=== PATIENT | female | born 1960 | race Caucasian/White ===

== ENCOUNTER 2021-03-14 18:51 | Inpatient (IN) | payer MEDICARE ==
[~2021-03-14] VITALS: Ht 162.6 cm; Wt 136.4 kg
[2021-03-14] MEDS ORDERED: ACETAMINOPHEN 325 MG TABLET. PO ONE (19:15)
--- NOTE | 2021-03-14 19:26 | PHYS DOC ---
General Adult EDM: Chief Complaint: SHORTNESS OF BREATH HPI: HPI: Patient is a 60 year old female who presents with 2 weeks of shortness of air. She does normally wear oxygen at 4 L. She is 94% on 4 L. She states that her shortness of breath has worsened. She was just released from [facility] yesterday and went home. Patient's told me this upon his arrival. She was there for 3 weeks after she had a fall at home. Previously EMS said that she was at [facility]. Patient is having chest pain also that is tight. She has history of CHF, high cholesterol, and hypertension and diabetes. She is a poor historian. She is also running a fever of 100.4. She states she was not running a fever previously. She states she does take Lasix. Review of Systems: Review of Systems: Constitutional: + fever or chills. [] Eyes: Denies change in visual acuity. [] HENT: Denies nasal congestion or sore throat. [] Respiratory: + cough or +shortness of breath. [] Cardiovascular: + chest pain or +edema. [] GI: Denies abdominal pain, nausea, vomiting, bloody stools or diarrhea. [] : Denies dysuria. [] Musculoskeletal: Denies back pain or joint pain. [] Integument: Denies rash. [] Neurologic: Denies headache, focal weakness or sensory changes. [] Endocrine: Denies polyuria or polydipsia. [] Lymphatic: Denies swollen glands. [] Psychiatric: Denies depression or anxiety. [] Heart Score: C/O Chest Pain: Yes HEART Score for Chest Pain: HEART Score for Chest Pain Response (Comments) Value History Slighlty/Non-Suspicious 0 ECG Nonspecific Repolarizatio 1 Age >45 - < 65 1 Risk Factors >3 Risk Factors or Hx CAD 2 Troponin < Normal Limit 0 Total 4 Risk Factors: Risk Factors: DM, Current or recent (<one month) smoker, HTN, HLP, family history of CAD, obesity. Risk Scores: Score 0 - 3: 2.5% MACE over next 6 weeks - Discharge Home Score 4 - 6: 20.3% MACE over next 6 weeks - Admit for Clinical Observation Score 7 - 10: 72.7% MACE over next 6 weeks - Early Invasive Strategies Current Medications: Current Medications Medications (Trade) Dose Ordered Sig/Fleisa Start Time Stop Time Status Last Admin Dose Admin Acetaminophen (Tylenol) 650 mg 1X ONCE 03/14/21 19:15 03/14/21 19:16 DC Allergies: Allergies: Allergies Coded Allergies Type Severity Reaction Last Updated Verified No Known Drug Allergies 03/14/21 No Physical Exam: PE: Constitutional: Well developed, well nourished, no acute distress, non-toxic appearance. [] HENT: Normocephalic, atraumatic, bilateral external ears normal, oropharynx moist, no oral exudates, nose normal. [] Eyes: PERRLA, EOMI, conjunctiva normal, no discharge. [] Neck: Normal range of motion, no tenderness, supple, no stridor. [] Cardiovascular:Heart rate regular rhythm, no murmur [] Lungs & Thorax: Left breath sounds and right upper wheezing with lower diminished to auscultation [] Abdomen: Bowel sounds normal, soft, no tenderness, no masses, no pulsatile masses. [] Skin: Warm, dry, no erythema, no rash. [] Back: No tenderness, no CVA tenderness. [] Extremities: No tenderness, no cyanosis, no clubbing, ROM intact, bilateral lower and upper 2-3+ edema. [] Neurologic: Alert and oriented X 3, normal motor function, normal sensory function, no focal deficits noted. [] Psychologic: Affect normal, judgement normal, mood normal. [] EKG: EK and read by Dr. Melendez sinus rhythm and no STEMI. [] Radiology/Procedures: Radiology/Procedures: [] Impression: [facility] [address] [place], [place] [id number] IMAGING REPORT Signed PATIENT: GARFIELD BRIDGES LACCOUNT: [id number] : 1960 LOCATION: ER AGE: 60 SEX: F EXAM STATUS: REG ER ORD. PHYSICIAN: LUIS ARMANDO FORBES APRN REASON: soa. unable to take deep breath PROCEDURE: PORTABLE CHEST 1V EXAM: AP View of the chest DATE: 03/14/2021 7:11 PM INDICATION: Reason: soa. unable to take deep breath / Spl. Instructions: / History: COMPARISON: No Prior FINDINGS: Mild cardiomegaly. Bilateral perihilar and lung base airspace opacities. Trace pleural effusions. No pneumothorax. IMPRESSION: 1. Cardiomegaly with bilateral parenchymal opacities and pleural effusions, likely pulmonary edema. Multifocal consolidative process would also have this appearance. Electronically signed by: Geovani Ruelas MD (03/14/2021 9:08 PM) [facility] DICTATED and SIGNED BY: GEOVANI RUELAS MD DATE: 03/14/[id number] 0 [facility] [address] [place] [address] IMAGING REPORT Signed PATIENT: GARFIELD BRIDGES LACCOUNT: [id number] : 1960 LOCATION: ER AGE: 60 SEX: F EXAM STATUS: REG ER ORD. PHYSICIAN: LUIS ARMANDO FORBES APRN REASON: SOA, ELEVATED LIVER ENZYMES, FEVER PROCEDURE: CT ANGIO CHEST ABD PELVIS Exam: CT of chest, abdomen and pelvis with contrast INDICATION: Short of air, elevated liver enzymes, fever TECHNIQUE: Sequential axial images through the chest, abdomen and pelvis obtained following the administration 100 mL of Isovue-370 IV contrast. Sagittal and coronal reformatted images were reconstructed from the axial data and reviewed. Exposure: One or more of the following in the visualized dose reduction techniques were utilized for this examination: 1. Automated exposure control 2. Adjustment of the MA and/or KV according to patient size 3. Use of iterative of reconstructive technique Comparisons: None FINDINGS: Visualized portions of the thyroid are unremarkable. There are several prominent but not enlarged pretracheal lymph nodes. Heart is mildly enlarged. No pericardial effusion. Thoracic aorta has a normal course and caliber. Pulmonary artery is not enlarged. Airways are patent. Strandy opacities the lungs bilaterally. Mild intralobular septal thickening is noted, with lung apices. No consolidation or pneumothorax. There is a small right and trace left pleural effusion Liver, pancreas and adrenals are unremarkable. Spleen is enlarged measuring up to 15.3 cm in long axis. Gallbladder is distended with mild associated wall thickening. No perinephric inflammation or hydronephrosis. No renal or ureteral calculi are identified. Bladder is decompressed not well evaluated. Uterus is absent. No abnormal adnexal mass. Large and small bowel are unremarkable. Appendix is normal. No free intra- abdominal air or fluid. No obstruction. Abdominal aorta has a normal course and caliber. Abdominal vasculature is patent. No enlarged intra-abdominal lymph nodes are identified. IMPRESSION: 1. Small right and trace left pleural effusions with intralobular septal thickening in the lungs, may relate to pulmonary edema with effusions. 2. Diffuse soft tissue anasarca. 3. No acute process identified within the abdomen or pelvis. 4. Splenomegaly. Electronically signed by: Juan Munoz MD (03/14/2021 9:18 PM) [facility] DICTATED and SIGNED BY: JUAN MUNOZ MD DATE: 03/14/21 0 Course & Med Decision Making: Course & Med Decision Making Pertinent Labs and Imaging studies reviewed. (See chart for details) COVID-19 CRITERIA: The patient was evaluated during the global COVID-19 pandemic, and that diagnosis was suspected/considered upon their initial presentation. Their evaluation, treatment and testing was consistent with current guidelines for patients who present with complaints or symptoms that may be related to COVID-19. See HPI. Alert and oriented x4. Cannot currently ambulate due to shortness of breath. She is brought in by EMS. Speaks in short 1 word sentences. She has in respiratory distress. Left lung is totally diminished in right lung has some wheezing in the upper lobe. Skin pink warm and dry. Patient has 2+ edema from head to toe. Patient is placed on BiPAP. She is given 40 mg of Lasix IV. states that the patient does have some redness to her bilateral lower legs of which she does. He states that her legs do not have any that redness prior to going to the rehabilitation. [] Dragon Disclaimer: Dragon Disclaimer: This electronic medical record was generated, in whole or in part, using a voice recognition dictation system. COVID-19 Patient Risks: Age 65 or older: No Sign of co-morbidity: Yes Exp to person + for COVID: No Exp to PUI: No Travel from affected area: No Lower respiratory symptoms: Yes Fever: Yes Other: No PPE Use: Full PPE with N95 mask or PAPR: Yes Departure Departure Impression: Primary Impression: CHF exacerbation Qualified Codes: I50.9 - Heart failure, unspecified Additional Impressions: Hyperkalemia Person under investigation for COVID-19 Disposition: 09 ADMITTED INPATIENT Admitting Physician: MAYELIN Condition: STABLE LUIS ARMANDO FORBES SLIDE FASTENER REPAIRER Mar 14, 2021 19:26
[2021-03-14 19:33] LABS: BASO # 0.1 x10^3/uL (0.0-0.2); BASO % 1 % (0-3); EOS % 0 % (0-3); HEMATOCRIT 27.2 % (36.0-47.0); HEMOGLOBIN 8.6 g/dL (12.0-15.5); LYMPH # 1.1 x10^3/uL (1.0-4.8); LYMPH % 11 % (24-48); MEAN CORPUSCULAR HEMOGLOBIN 25 pg (25-35); MEAN CORPUSCULAR HGB CONC 32 g/dL (31-37); MEAN CORPUSCULAR VOLUME 79 fL (79-100); MONO # 0.7 x10^3/uL (0.0-1.1); MONO % 7 % (0-9); NEUT # 7.9 x10^3/uL (1.8-7.7); NEUT % 80 % (31-73); PLATELET COUNT 330 x10^3/uL (140-400); RED BLOOD COUNT 3.46 x10^6/uL (3.50-5.40); RED CELL DISTRIBUTION WIDTH 17.2 % (11.5-14.5); WHITE BLOOD COUNT 9.8 x10^3/uL (4.0-11.0)
[2021-03-14 19:34] LABS: PROTHROMBIN TIME PATIENT 16.6 SEC (11.7-14.0)
[2021-03-14 19:37] LABS: D-DIMER 2.55 ug/mlFEU (0.00-0.50)
[2021-03-14 19:38] LABS: CALCIUM 8.8 mg/dL (8.5-10.1); CREATININE 0.9 mg/dL (0.6-1.0); GFR 63.7; POTASSIUM 5.6 mmol/L (3.5-5.1)
[2021-03-14 19:44] LABS: ALBUMIN/GLOBULIN RATIO 0.9 (1.0-1.7); TOTAL BILIRUBIN 2.4 mg/dL (0.2-1.0); TOTAL PROTEIN 6.3 g/dL (6.4-8.2)
[2021-03-14] MEDS ORDERED: IOHEXOL 350 MG/ML 100 ML VIAL. IV ONE (20:15)
[2021-03-14 20:40] LABS: BASE EXCESS COOX 0 mmol/L (-3-3); HCO3 COOX 24 mmol/L (21-28); METHEMOGLOBIN 0.5 % (0.0-1.9); OXYHEMOGLOBIN 91.5 %; PCO2 COOX 38 mmHg (35-46); PO2 COOX 66 mmHg (65-108); SAT O2 COOX 92 % (92-99)
--- NOTE | 2021-03-14 21:10 | RAD ---
EXAM: AP View of the chest DATE: 03/14/2021 7:11 PM INDICATION: Reason: soa. unable to take deep breath / Spl. Instructions: / History: COMPARISON: No Prior FINDINGS: Mild cardiomegaly. Bilateral perihilar and lung base airspace opacities. Trace pleural effusions. No pneumothorax. IMPRESSION: 1. Cardiomegaly with bilateral parenchymal opacities and pleural effusions, likely pulmonary edema. Multifocal consolidative process would also have this appearance. Electronically signed by: Geovani Woo MD (03/14/2021 9:08 PM) [facility]
--- NOTE | 2021-03-14 21:20 | RAD ---
Exam: CT of chest, abdomen and pelvis with contrast INDICATION: Short of air, elevated liver enzymes, fever TECHNIQUE: Sequential axial images through the chest, abdomen and pelvis obtained following the admin istration 100 mL of Isovue-370 IV contrast. Sagittal and coronal reformatted images were reconstructe d from the axial data and reviewed. Exposure: One or more of the following in the visualized dose reduction techniques were utilized for this examination: 1. Automated exposure control 2. Adjustment of the MA and/or KV according to patient size 3. Use of iterative of reconstructive technique Comparisons: None FINDINGS: Visualized portions of the thyroid are unremarkable. There are several prominent but not enlarged pre tracheal lymph nodes. Heart is mildly enlarged. No pericardial effusion. Thoracic aorta has a normal course and caliber. Pu lmonary artery is not enlarged. Airways are patent. Strandy opacities the lungs bilaterally. Mild intralobular septal thickening is n oted, with lung apices. No consolidation or pneumothorax. There is a small right and trace left pleur al effusion Liver, pancreas and adrenals are unremarkable. Spleen is enlarged measuring up to 15.3 cm in long axi s. Gallbladder is distended with mild associated wall thickening. No perinephric inflammation or hydronephrosis. No renal or ureteral calculi are identified. Bladder is decompressed not well evaluated. Uterus is absent. No abnormal adnexal mass. Large and small bowel are unremarkable. Appendix is normal. No free intra-abdominal air or fluid. No obstruction. Abdominal aorta has a normal course and caliber. Abdominal vasculature is patent. No enlarged intra-abdominal lymph nodes are identified. IMPRESSION: 1. Small right and trace left pleural effusions with intralobular septal thickening in the lungs, ma y relate to pulmonary edema with effusions. 2. Diffuse soft tissue anasarca. 3. No acute process identified within the abdomen or pelvis. 4. Splenomegaly. Electronically signed by: Juan Salcedo MD (03/14/2021 9:18 PM) [facility]
[2021-03-14] MEDS ORDERED: FUROSEMIDE 40 MG/4 ML VIAL. IVP ONE (21:30)
[2021-03-14] MEDS ORDERED: PIPERACILLIN/TAZOBACTAM 3.375 GM in IV NORMAL SALINE 50ML 50 ML IV ONE (22:00)
[2021-03-14] MEDS ORDERED: ONDANSETRON PF 4 MG/2 ML VIAL. IVP PRN (22:30)
[2021-03-14] MEDS ORDERED: CONTRAST GIVEN. MC PRN (22:30)
[2021-03-14] MEDS ORDERED: LACTULOSE 20 GM/30 ML SOLUTION. PO PRN (22:30)
[2021-03-14] MEDS ORDERED: DEXTROSE 50% 25 GM / 50ML DISP.SYRIN. IV PRN (22:30)
[2021-03-14] MEDS ORDERED: ZOLPIDEM 5 MG TABLET. PO PRN (22:30)
[2021-03-14] MEDS ORDERED: ACETAMINOPHEN 325 MG TABLET. PO PRN (22:30)
[2021-03-14 22:45] VITALS: BP 153/81
[2021-03-14] MEDS ORDERED: INSULIN GLARGINE SYRINGE. SQ SCH (23:00)
[2021-03-14] MEDS: ENOXAPARIN 40 MG/0.4 ML SYRINGE. SQ SCH (23:44)
[2021-03-15] VITALS (7 sets, daily range): BP systolic 129–169; BP diastolic 58–72
[2021-03-15 00:41] LABS: BILIRUBIN,URINE NEGATIVE (NEG); CLARITY,URINE CLEAR; COLOR,URINE YELLOW; NITRITE,URINE NEGATIVE (NEG); PROTEIN,URINE NEGATIVE (NEG-TRACE); UROBILINOGEN,URINE 0.2 mg/dL (0.2 mg/dL)
[2021-03-15 00:57] LABS: BACTERIA,URINE FEW /HPF (0-FEW); WBC,URINE 20-40 /HPF (0-4)
[2021-03-15 01:04] LABS: YEAST,URINE PRESENT /HPF
--- NOTE | 2021-03-15 01:58 | NUR ---
The patient, GARFIELD BRIDGES, 60 y/o, F admitted by GERARD FRYE MD, was given written information regarding hospital policies, unit procedures and contact persons. Valuables were checked and has a shirt and socks. Patient unable to respond to what medications and much of health history due to being on bipap and unable to recall.
--- NOTE | 2021-03-15 02:07 | EKG ---
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
[2021-03-15 04:53] LABS: ALBUMIN 2.7 g/dL (3.4-5.0); DIRECT BILIRUBIN 0.6 mg/dL (0.0-0.2); TOTAL BILIRUBIN 2.4 mg/dL (0.2-1.0); TOTAL PROTEIN 6.4 g/dL (6.4-8.2)
--- NOTE | 2021-03-15 07:44 | PDOC1 ---
History and Physical Date of Admission Date of Admission DATE: 03/15/21 TIME: 07:39 Identification/Chief Complaint Chief Complaint Shortness of breath Source Source: Caregiver, Chart review, Patient History of Present Illness History of Present Illness Ms Diaz is a 60 yo F w/ PMHx CAD s/p SAM x1, diastolic CHF, polyarthralgias, TONI no longer on CPAP, chronic hypoxic respiratory failure, morbid obesity, HLD, HTN, DM2 who presents to ED c/o 2 weeks of shortness of breath. The shortness of breath has been progressive while she was at acute rehab in [place] after a left knee revision after a femoral fracture with a fall onto prosthetic left knee 5 weeks ago, repaired by Dr. Mendez at [facility]. She notes significant CANNON and orthopnea and noted she sleeps in her recliner for the past year. She notes she was released from [facility] on 03/13/2021 though she continues to say July 13, despite frequent correction and redirection, her does note it was 03/13/2021 Labs with ABG on 3 L nasal cannula 7.4 , CBC WBC 9.8 with left shift, Hb 8.6, platelets 330, NA 138, K5.6, BUN 28, CR 0.9, glucose 300, INR 1.4, D-dimer 2.55 lactic acid 1.6, troponin 0 3 8, albumin 2.7, bilirubin 2.4, AST 57, ALT 40 , alkaline phosphatase 308. Chest radiograph with cardiomegaly and multifocal consolidation likely pulmonary edema. Given elevated D-dimer and severity of her symptoms she underwent CT chest abdomen pelvis with pulmonary edema again noted and overall soft tissue anasarca splenomegaly nondistended gallbladder. Given her the severity of her respiratory distress she was placed on BiPAP had Calderon catheter placed and was admitted to [facility] for further treatment of acute CHF. Past Medical History Cardiovascular: CAD, CHF, HTN, Hyperlipidemia Pulmonary: COPD Endocrine: Diabetes Past Surgical History Past Surgical History: Total knee replacement Family History Family History: High Cholestrol, Hypertension Social History Smoke: No ALCOHOL: none Drugs: None Current Problem List Problem List Problems Medical Problems: (1) CHF exacerbation Status: Acute (2) Hyperkalemia Status: Acute (3) Person under investigation for COVID-19 Status: Acute Current Medications Current Medications Current Medications Acetaminophen (Tylenol) 650 mg 1X ONCE PO Last administered on 03/14/21at 19:35; Start 03/14/21 at 19:15; Stop 03/14/21 at 19:16; Status DC Iohexol (Omnipaque 350 Mg/ml) 100 ml 1X ONCE IV Last administered on 03/14/21at 20:15; Start 03/14/21 at 20:15; Stop 03/14/21 at 20:16; Status DC Furosemide (Lasix) 40 mg 1X ONCE IVP Last administered on 03/14/21at 21:44; Start 03/14/21 at 21:30; Stop 03/14/21 at 21:31; Status DC Piperacillin Sod/ Tazobactam Sod 3.375 gm/Sodium Chloride 50 ml @ 100 mls/hr 1X ONCE IV Last administered on 03/14/21at 21:44; Start 03/14/21 at 22:00; Stop at 22:29; Status DC Info (CONTRAST GIVEN -- Rx MONITORING) 1 each PRN DAILY PRN MC SEE COMMENTS; Start 03/14/21 at 22:30; Stop 03/16/21 at 22:29 Insulin Glargine (Lantus Syringe) 10 unit QHS SQ Last administered on 03/14/21at 23:54; Start 03/14/21 at 23:00 Insulin Human Lispro (HumaLOG) 0-9 UNITS TIDWMEALS SQ ; Start 03/15/21 at 08:00 Dextrose (Dextrose 50%-Water Syringe) 12.5 gm PRN Q15MIN PRN IV SEE COMMENTS; Start 03/14/21 at 22:30 Acetaminophen (Tylenol) 650 mg PRN Q6HRS PRN PO MILD PAIN / TEMP > 100.3'F Last administered on 03/15/21at 04:00; Start 03/14/21 at 22:30 Ondansetron HCl (Zofran) 4 mg PRN Q4HRS PRN IVP NAUSEA/VOMITING 1ST CHOICE; Start 03/14/21 at 22:30 Zolpidem Tartrate (Ambien) 5 mg PRN QHS PRN PO INSOMNIA; Start 03/14/21 at 22:30 Enoxaparin Sodium (Lovenox 40mg Syringe) 40 mg Q12HR SQ Last administered on 03/14/21at 23:44; Start 03/14/21 at 23:00 Lactulose (Lactulose) 20 gm PRN DAILY PRN PO CONSTIPATION 1ST CHOICE; Start 03/14/21 at 22:30 Tramadol HCl (Ultram) 50 mg PRN Q6HRS PRN PO MODERATE PAIN 4-6; Start 03/14/21 at 22:30 Furosemide (Lasix) 40 mg BID92 IVP ; Start 03/15/21 at 09:00; Stop 03/15/21 at 14:01 Allergies Allergies: Coded Allergies: No Known Drug Allergies (Unverified , 03/14/21) ROS General: YES: Fatigue, Malaise; No: Chills, Night Sweats, Appetite, Other PSYCHOLOGICAL ROS: YES: Anxiety, Disorientation, Memory difficulties; No: Behavioral Disorder, Concentration difficultie, Decreased libido, Depression, Hallucinations, Hostility, Irritablity, Mood Swings, Obsessive thoughts, Physical abuse, Sexual abuse, Sleep disturbances, Suicidal ideation, Other Eyes: No Blurry vision, No Decreased vision, No Double vision, No Dry eyes, No Excessive tearing, No Eye Pain, No Itchy Eyes, No Loss of vision, No Photophobia, No Scotomata, No Uses contacts, No Uses glasses, No Other HEENT: No: Heacaches, Visual Changes, Hearing change, Nasal congestion, Nasal discharge, Oral lesions, Sinus pain, Sore Throat, Epistaxis, Sneezing, Snoring, Tinnitus, Vertigo, Vocal changes, Other ALLERGY AND IMMUNOLOGY: No: Hives, Insect Bite Sensitivity, Itchy/Watery Eyes, Nasal Congestion, Post Nasal Drip, Seasonal Allergies, Other Hematological and Lymphatic: No: Bleeding Problems, Blood Clots, Blood Transfusions, Brusing, Night Sweats, Pallor, Swollen Lymph Nodes, Other ENDOCRINE: No: Breast Changes, Galactorrhea, Hair Pattern Changes, Hot Flashes, Malaise/lethargy, Mood Swings, Palpitations, Polydipsia/polyuria, Skin Changes, Temperature Intolerance, Unexpected Weight Changes, Other Breast: No New/Changing Breast Lumps, No Nipple changes, No Nipple discharge, No Other Respiratory: YES: Cough, Shortness of breath, SOB with excertion, Tachypnea, Wheezing; No: Hemoptysis, Orthopnea, Pleuritic Pain, Sputum Changes, Stridor, Other Cardiovascular: yes Chest Pain, yes Orthopnea, yes Paroxysmal Noc. Dyspnea, yes Edema; No Palpitations, No Lt Headedness, No Other Genitourinary: No Dysuria, No Frequency, No Incontinence, No Hematuria, No Retention, No Discharge, No Urgency, No Pain, No Flank Pain, No Other, No , No , No , No , No , No , No Musculoskeletal: Yes Gait Disturbance; No Joint Pain, No Joint Stiffness, No Joint Swelling, No Muscle Pain, No Muscular Weakness, No Pain In:, No Swelling In:, No Other Neurological: Yes Gait Disturbance; No Behavorial Changes, No Bowel/Bladder ControlChng, No Confusion, No Dizziness, No Headaches, No Impaired Coord/balance, No Memory Loss, No Numbness/Tingling, No Seizures, No Speech Problems, No Tremors, No Visual Changes, No Weakness, No Other Skin: No Dry Skin, No Eczema, No Hair Changes, No Lumps, No Mole Changes, No Mottling, No Nail Changes, No Pruritus, No Rash, No Skin Lesion Changes, No Other, No Acne Physical Exam General: Alert, Cooperative, moderate distress HEENT: Atraumatic, PERRLA, EOMI, Mucous membr. moist/pink Lungs: Other (Bilateral crackles) Heart: S1S2, RRR, no thrills, no rubs Abdomen: Normal bowel sounds, Soft, No tenderness, No hepatosplenomegaly, No masses Rectal Exam: not examined Extremities: No clubbing, No cyanosis, Normal pulses, Other (Bilateral venous stasis dermatitis, 2+ edema) Skin: No rashes, No breakdown, No significant lesion, Other (Left knee sutures intact) Neuro: Normal speech, Strength at 5/5 X4 ext, Normal tone, Sensation intact, Cranial nerves 3-12 NL, Reflexes 2+ Psych/Mental Status: Other (Confused) Vitals Vitals Vital Signs Date Time Temp Pulse Resp B/P (MAP) Pulse Ox O2 Delivery O2 Flow Rate FiO2 03/15/21 03:45 100.3 81 24 169/72 (104) 99 BiPAP/CPAP 100.3 03/14/21 23:45 12.0 Labs Labs Laboratory Tests Test 03/14/21 18:15 03/14/21 19:15 03/14/21 20:27 03/14/21 23:48 Acetone Level Neg (NEG) White Blood Count 9.8 x10^3/uL (4.0-11.0) Red Blood Count 3.46 x10^6/uL (3.50-5.40) Hemoglobin 8.6 g/dL (12.0-15.5) Hematocrit 27.2 % (36.0-47.0) Mean Corpuscular Volume 79 fL (79-100) Mean Corpuscular Hemoglobin 25 pg (25-35) Mean Corpuscular Hemoglobin Concent 32 g/dL (31-37) Red Cell Distribution Width 17.2 % (11.5-14.5) Platelet Count 330 x10^3/uL (140-400) Neutrophils (%) (Auto) 80 % (31-73) Lymphocytes (%) (Auto) 11 % (24-48) Monocytes (%) (Auto) 7 % (0-9) Eosinophils (%) (Auto) 0 % (0-3) Basophils (%) (Auto) 1 % (0-3) Neutrophils # (Auto) 7.9 x10^3/uL (1.8-7.7) Lymphocytes # (Auto) 1.1 x10^3/uL (1.0-4.8) Monocytes # (Auto) 0.7 x10^3/uL (0.0-1.1) Eosinophils # (Auto) 0.0 x10^3/uL (0.0-0.7) Basophils # (Auto) 0.1 x10^3/uL (0.0-0.2) Prothrombin Time 16.6 SEC (11.7-14.0) Prothromb Time International Ratio 1.4 (0.8-1.1) D-Dimer (Susan) 2.55 ug/mlFEU (0.00-0.50) Sodium Level 138 mmol/L (136-145) Potassium Level 5.6 mmol/L (3.5-5.1) Chloride Level 103 mmol/L (98-107) Carbon Dioxide Level 26 mmol/L (21-32) Anion Gap 9 (6-14) Blood Urea Nitrogen 28 mg/dL (7-20) Creatinine 0.9 mg/dL (0.6-1.0) Estimated GFR (Cockcroft-Gault) 63.7 BUN/Creatinine Ratio 31 (6-20) Glucose Level 300 mg/dL (70-99) Lactic Acid Level 1.6 mmol/L (0.4-2.0) Calcium Level 8.8 mg/dL (8.5-10.1) Total Bilirubin 2.4 mg/dL (0.2-1.0) Aspartate Amino Transf (AST/SGOT) 57 U/L (15-37) Alanine Aminotransferase (ALT/SGPT) 40 U/L (14-59) Alkaline Phosphatase 308 U/L (46-116) Troponin I Quantitative 0.033 ng/mL (0.000-0.055) VS-Jie-E-Type Natriuretic Peptide 4873 pg/mL (0-124) Total Protein 6.3 g/dL (6.4-8.2) Albumin 3.0 g/dL (3.4-5.0) Albumin/Globulin Ratio 0.9 (1.0-1.7) O2 Saturation 92 % (92-99) Arterial Blood pH 7.42 (7.35-7.45) Arterial Blood pCO2 at Patient Temp 38 mmHg (35-46) Arterial Blood pO2 at Patient Temp 66 mmHg (65-108) Arterial Blood HCO3 24 mmol/L (21-28) Arterial Blood Base Excess 0 mmol/L (-3-3) Oxyhemoglobin 91.5 % Methemoglobin 0.5 % (0.0-1.9) Carbon Monoxide, Quantitative 0.3 % (0.0-1.9) FiO2 32 Glucose (Fingerstick) 278 mg/dL (70-99) Test 03/15/21 00:15 03/15/21 00:30 03/15/21 04:00 Troponin I Quantitative 0.038 ng/mL (0.000-0.055) 0.060 ng/mL (0.000-0.055) Urine Collection Type Unknown Urine Color Yellow Urine Clarity Clear Urine pH 5.0 (<5.0-8.0) Urine Specific Erie 1.010 (1.000-1.030) Urine Protein Negative mg/dL (NEG-TRACE) Urine Glucose (UA) Negative mg/dL (NEG) Urine Ketones (Stick) Negative mg/dL (NEG) Urine Blood Small (NEG) Urine Nitrite Negative (NEG) Urine Bilirubin Negative (NEG) Urine Urobilinogen Dipstick 0.2 mg/dL (0.2 mg/dL) Urine Leukocyte Esterase Moderate (NEG) Urine RBC 3-5 /HPF (0-2) Urine WBC 20-40 /HPF (0-4) Urine Squamous Epithelial Cells Few /LPF Urine Bacteria Few /HPF (0-FEW) Urine Mucus Slight /LPF Urine Yeast Present /HPF Total Bilirubin 2.4 mg/dL (0.2-1.0) Direct Bilirubin 0.6 mg/dL (0.0-0.2) Aspartate Amino Transf (AST/SGOT) 32 U/L (15-37) Alanine Aminotransferase (ALT/SGPT) 38 U/L (14-59) Alkaline Phosphatase 270 U/L (46-116) Total Protein 6.4 g/dL (6.4-8.2) Albumin 2.7 g/dL (3.4-5.0) Laboratory Tests Test 03/14/21 18:15 03/14/21 19:15 03/14/21 20:27 03/14/21 23:48 Acetone Level Neg (NEG) White Blood Count 9.8 x10^3/uL (4.0-11.0) Red Blood Count 3.46 x10^6/uL (3.50-5.40) Hemoglobin 8.6 g/dL (12.0-15.5) Hematocrit 27.2 % (36.0-47.0) Mean Corpuscular Volume 79 fL (79-100) Mean Corpuscular Hemoglobin 25 pg (25-35) Mean Corpuscular Hemoglobin Concent 32 g/dL (31-37) Red Cell Distribution Width 17.2 % (11.5-14.5) Platelet Count 330 x10^3/uL (140-400) Neutrophils (%) (Auto) 80 % (31-73) Lymphocytes (%) (Auto) 11 % (24-48) Monocytes (%) (Auto) 7 % (0-9) Eosinophils (%) (Auto) 0 % (0-3) Basophils (%) (Auto) 1 % (0-3) Neutrophils # (Auto) 7.9 x10^3/uL (1.8-7.7) Lymphocytes # (Auto) 1.1 x10^3/uL (1.0-4.8) Monocytes # (Auto) 0.7 x10^3/uL (0.0-1.1) Eosinophils # (Auto) 0.0 x10^3/uL (0.0-0.7) Basophils # (Auto) 0.1 x10^3/uL (0.0-0.2) Prothrombin Time 16.6 SEC (11.7-14.0) Prothromb Time International Ratio 1.4 (0.8-1.1) D-Dimer (Susan) 2.55 ug/mlFEU (0.00-0.50) Sodium Level 138 mmol/L (136-145) Potassium Level 5.6 mmol/L (3.5-5.1) Chloride Level 103 mmol/L (98-107) Carbon Dioxide Level 26 mmol/L (21-32) Anion Gap 9 (6-14) Blood Urea Nitrogen 28 mg/dL (7-20) Creatinine 0.9 mg/dL (0.6-1.0) Estimated GFR (Cockcroft-Gault) 63.7 BUN/Creatinine Ratio 31 (6-20) Glucose Level 300 mg/dL (70-99) Lactic Acid Level 1.6 mmol/L (0.4-2.0) Calcium Level 8.8 mg/dL (8.5-10.1) Total Bilirubin 2.4 mg/dL (0.2-1.0) Aspartate Amino Transf (AST/SGOT) 57 U/L (15-37) Alanine Aminotransferase (ALT/SGPT) 40 U/L (14-59) Alkaline Phosphatase 308 U/L (46-116) Troponin I Quantitative 0.033 ng/mL (0.000-0.055) GP-Zxn-M-Type Natriuretic Peptide 4873 pg/mL (0-124) Total Protein 6.3 g/dL (6.4-8.2) Albumin 3.0 g/dL (3.4-5.0) Albumin/Globulin Ratio 0.9 (1.0-1.7) O2 Saturation 92 % (92-99) Arterial Blood pH 7.42 (7.35-7.45) Arterial Blood pCO2 at Patient Temp 38 mmHg (35-46) Arterial Blood pO2 at Patient Temp 66 mmHg (65-108) Arterial Blood HCO3 24 mmol/L (21-28) Arterial Blood Base Excess 0 mmol/L (-3-3) Oxyhemoglobin 91.5 % Methemoglobin 0.5 % (0.0-1.9) Carbon Monoxide, Quantitative 0.3 % (0.0-1.9) FiO2 32 Glucose (Fingerstick) 278 mg/dL (70-99) Test 03/15/21 00:15 03/15/21 00:30 03/15/21 04:00 Troponin I Quantitative 0.038 ng/mL (0.000-0.055) 0.060 ng/mL (0.000-0.055) Urine Collection Type Unknown Urine Color Yellow Urine Clarity Clear Urine pH 5.0 (<5.0-8.0) Urine Specific [place] 1.010 (1.000-1.030) Urine Protein Negative mg/dL (NEG-TRACE) Urine Glucose (UA) Negative mg/dL (NEG) Urine Ketones (Stick) Negative mg/dL (NEG) Urine Blood Small (NEG) Urine Nitrite Negative (NEG) Urine Bilirubin Negative (NEG) Urine Urobilinogen Dipstick 0.2 mg/dL (0.2 mg/dL) Urine Leukocyte Esterase Moderate (NEG) Urine RBC 3-5 /HPF (0-2) Urine WBC 20-40 /HPF (0-4) Urine Squamous Epithelial Cells Few /LPF Urine Bacteria Few /HPF (0-FEW) Urine Mucus Slight /LPF Urine Yeast Present /HPF Total Bilirubin 2.4 mg/dL (0.2-1.0) Direct Bilirubin 0.6 mg/dL (0.0-0.2) Aspartate Amino Transf (AST/SGOT) 32 U/L (15-37) Alanine Aminotransferase (ALT/SGPT) 38 U/L (14-59) Alkaline Phosphatase 270 U/L (46-116) Total Protein 6.4 g/dL (6.4-8.2) Albumin 2.7 g/dL (3.4-5.0) Images Images Chest radiograph: Mild cardiomegaly. Bilateral perihilar and lung base airspace opacities. Trace pleural effusions. No pneumothorax. IMPRESSION: 1. Cardiomegaly with bilateral parenchymal opacities and pleural effusions, likely pulmonary edema. Multifocal consolidative process would also have this appearance. CT of chest, abdomen and pelvis with contrast: Visualized portions of the thyroid are unremarkable. There are several prominent but not enlarged pretracheal lymph nodes. Heart is mildly enlarged. No pericardial effusion. Thoracic aorta has a normal course and caliber. Pulmonary artery is not enlarged. Airways are patent. Strandy opacities the lungs bilaterally. Mild intralobular septal thickening is noted, with lung apices. No consolidation or pneumothorax. There is a small right and trace left pleural effusion Liver, pancreas and adrenals are unremarkable. Spleen is enlarged measuring up to 15.3 cm in long axis. Gallbladder is distended with mild associated wall thickening. No perinephric inflammation or hydronephrosis. No renal or ureteral calculi are identified. Bladder is decompressed not well evaluated. Uterus is absent. No abnormal adnexal mass. Large and small bowel are unremarkable. Appendix is normal. No free intra- abdominal air or fluid. No obstruction. Abdominal aorta has a normal course and caliber. Abdominal vasculature is patent. No enlarged intra-abdominal lymph nodes are identified. IMPRESSION: 1. Small right and trace left pleural effusions with intralobular septal thickening in the lungs, may relate to pulmonary edema with effusions. 2. Diffuse soft tissue anasarca. 3. No acute process identified within the abdomen or pelvis. 4. Splenomegaly. VTE Prophylaxis Ordered VTE Prophylaxis Devices: Yes VTE Pharmacological Prophylaxi: Yes Assessment/Plan Assessment/Plan A/P: Acute hypoxic respiratory failure -multifactorial with acute CHF exacerbation likely pneumonia as well will treat both. Needs repeat outpatient sleep study as well for untreated TONI. Acute diastolic CHF -will diurese. Reconcile her home medications. Consult cardiology. Obtain [facility] records Acute encephalopathy - metabolic due to hypoxia, will monitor mental status Hyperkalemia -improved with IV Lasix dosing. Will monitor Anemia -likely of chronic disease, will check iron and B12 levels. No blood los s noted. Transaminitis -possibly congestive hepatopathy from acute CHF he notes no history of liver disease though she does note history of esophageal strictures and had balloon dilation years ago. CAD s/p SAM x1 - on antiplatelet. has cardiology f/u at [facility] Polyarthralgias - s/p knee replacements bilaterally, recovering from revision on left knee after fall at home TONI no longer on CPAP - stopped as she rolls around frequently but notes she is sleeping recliner would be more appropriate for repeat sleep study as she is obviously gaining benefit from being on BiPAP. 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
[2021-03-15] MEDS ORDERED: FUROSEMIDE 40 MG/4 ML VIAL. IVP SCH (09:00)
[2021-03-15] MEDS: ENOXAPARIN 40 MG/0.4 ML SYRINGE. SQ SCH (10:30)
[2021-03-15] MEDS: INSULIN LISPRO 300 UNITS/3 ML VIAL. SQ SCH ×3 (10:40→17:35)
[2021-03-15] MEDS: PIPERACILLIN/TAZOBACTAM 3.375 GM in IV NORMAL SALINE 50ML 50 ML IV SCH ×4 (11:03→23:49)
[2021-03-15] MEDS: DOXYCYCLINE HYCLATE 100 MG TABLET PO SCH ×2 (11:04→20:54)
--- NOTE | 2021-03-15 11:57 | PDOC2 ---
MAXXMICAELA MUELLER MARAL 03/15/21 1157: CARDIAC CONSULT DATE OF CONSULT Date of Consult DATE: 03/15/21 TIME: 11:50 REASON FOR CONSULT Reason for Consult: CHF REFERRING PHYSICIAN Referring Physician: Litzy Coreas APRN SOURCE Source: Chart review, Patient HISTORY OF PRESENT ILLNESS HISTORY OF PRESENT ILLNESS This is a 60 yo female who presented secondary to shortness of breath. Has been progressive over the last couple of weeks. Patient under left knee replacement at [facility] recently. Was discharge to [facility] facility for rehab for two weeks. Reports she had been short of breath since arrival to the rehab facility. Progressively worsened. Associated with chest pressure tightness that has been constant as she has difficulty breathing. Also with LE edema bilaterally. Reports compliance with meds including Lasix. NO dizziness, diaphoresis, or nausea/vomiting. Has had redness of her bilateral LE extremities. PAST MEDICAL HISTORY Cardiovascular: CAD, CHF, HTN, Hyperlipidemia Pulmonary: Other (TONI) CENTRAL NERVOUS SYSTEM: Periperal neuropathy Heme/Onc: No pertinent hx Hepatobiliary: No pertinent hx Musculoskeletal: Osteoarthritis Renal/: No pertinent hx Endocrine: Diabetes, Hypothyroidism PAST SURGICAL HISTORY Past Surgical History: Total knee replacement (bilateral ), Other (right shoulder replacement ) FAMILY HISTORY Family History: Heart Disease SOCIAL HISTORY Smoke: No ALCOHOL: none Drugs: None Lives: with Family CURRENT MEDICATIONS CURRENT MEDICATIONS Current Medications Medications (Trade) Dose Ordered Sig/Felisa Route PRN Reason Start Time Stop Time Status Last Admin Dose Admin Acetaminophen (Tylenol) 650 mg 1X ONCE PO 03/14/21 19:15 03/14/21 19:16 DC 03/14/21 19:35 Iohexol (Omnipaque 350 Mg/ml) 100 ml 1X ONCE IV 03/14/21 20:15 03/14/21 20:16 DC 03/14/21 20:15 Furosemide (Lasix) 40 mg 1X ONCE IVP 03/14/21 21:30 03/14/21 21:31 DC 03/14/21 21:44 Piperacillin Sod/ Tazobactam Sod 3.375 gm/Sodium Chloride 50 ml @ 100 mls/hr 1X ONCE IV 03/14/21 22:00 03/14/21 22:29 DC 03/14/21 21:44 Insulin Glargine (Lantus Syringe) 10 unit QHS SQ 03/14/21 23:00 03/14/21 23:54 Insulin Human Lispro (HumaLOG) 0-9 UNITS TIDWMEALS SQ 03/15/21 08:00 03/15/21 10:40 Acetaminophen (Tylenol) 650 mg PRN Q6HRS PRN PO MILD PAIN / TEMP > 100.3'F 03/14/21 22:30 03/15/21 04:00 Enoxaparin Sodium (Lovenox 40mg Syringe) 40 mg Q12HR SQ 03/14/21 23:00 03/15/21 10:30 Furosemide (Lasix) 40 mg BID92 IVP 03/15/21 09:00 03/15/21 14:01 03/15/21 11:04 Piperacillin Sod/ Tazobactam Sod 3.375 gm/Sodium Chloride 50 ml @ 100 mls/hr Q6HRS IV 03/15/21 08:00 03/15/21 11:03 Doxycycline Hyclate (Vibra-Tab) 100 mg BID PO 03/15/21 09:00 03/15/21 11:04 ALLERGIES ALLERGIES: Coded Allergies: No Known Drug Allergies (Unverified , 03/14/21) ROS Review of System 14 point ROS conducted with pertinent positives noted above in HPI PHYSICAL EXAM General: Alert, Oriented X3, Cooperative, No acute distress HEENT: Atraumatic, Mucous membr. moist/pink Lungs: Other (diminished ) Heart: Regular rate Abdomen: Soft, No tenderness Extremities: Other (1+ bilateral LE edema, erythma ) Skin: Other (left knee surgical incision. Well approximated ) Neuro: Normal speech, Sensation intact Psych/Mental Status: Mental status NL, Mood NL MUSCULOSKELETAL: Osteoarthritic changes both hands VITALS/I&O VITALS/I&O: Vital Signs Date Time Temp Pulse Resp B/P (MAP) Pulse Ox O2 Delivery O2 Flow Rate FiO2 03/15/21 07:55 98.9 75 22 160/72 (101) 98 Nasal Cannula 98.9 03/14/21 23:45 12.0 I & O 03/14/21 03/14/21 03/15/21 15:00 23:00 07:00 Intake Total 50 ml 480 ml Output Total 1850 ml Balance 50 ml -1370 ml LABS Lab: Laboratory Tests Test 03/14/21 18:15 03/14/21 19:15 03/14/21 20:27 03/14/21 22:40 Acetone Level Neg (NEG) White Blood Count 9.8 x10^3/uL (4.0-11.0) Red Blood Count 3.46 x10^6/uL (3.50-5.40) L Hemoglobin 8.6 g/dL (12.0-15.5) L Hematocrit 27.2 % (36.0-47.0) L Mean Corpuscular Volume 79 fL (79-100) Mean Corpuscular Hemoglobin 25 pg (25-35) Mean Corpuscular Hemoglobin Concent 32 g/dL (31-37) Red Cell Distribution Width 17.2 % (11.5-14.5) H Platelet Count 330 x10^3/uL (140-400) Neutrophils (%) (Auto) 80 % (31-73) H Lymphocytes (%) (Auto) 11 % (24-48) L Monocytes (%) (Auto) 7 % (0-9) Eosinophils (%) (Auto) 0 % (0-3) Basophils (%) (Auto) 1 % (0-3) Neutrophils # (Auto) 7.9 x10^3/uL (1.8-7.7) H Lymphocytes # (Auto) 1.1 x10^3/uL (1.0-4.8) Monocytes # (Auto) 0.7 x10^3/uL (0.0-1.1) Eosinophils # (Auto) 0.0 x10^3/uL (0.0-0.7) Basophils # (Auto) 0.1 x10^3/uL (0.0-0.2) Prothrombin Time 16.6 SEC (11.7-14.0) H Prothrombin Time INR 1.4 (0.8-1.1) H D-Dimer (Suasn) 2.55 ug/mlFEU (0.00-0.50) H Sodium Level 138 mmol/L (136-145) Potassium Level 5.6 mmol/L (3.5-5.1) H Chloride Level 103 mmol/L (98-107) Carbon Dioxide Level 26 mmol/L (21-32) Anion Gap 9 (6-14) Blood Urea Nitrogen 28 mg/dL (7-20) H Creatinine 0.9 mg/dL (0.6-1.0) Estimated GFR (Cockcroft-Gault) 63.7 BUN/Creatinine Ratio 31 (6-20) H Glucose Level 300 mg/dL (70-99) H Lactic Acid Level 1.6 mmol/L (0.4-2.0) Calcium Level 8.8 mg/dL (8.5-10.1) Total Bilirubin 2.4 mg/dL (0.2-1.0) H Aspartate Amino Transferase (AST) 57 U/L (15-37) H Alanine Aminotransferase (ALT) 40 U/L (14-59) Alkaline Phosphatase 308 U/L (46-116) H Troponin I Quantitative 0.033 ng/mL (0.000-0.055) YE-Thz-O-Type Natriuretic Peptide 4873 pg/mL (0-124) H Total Protein 6.3 g/dL (6.4-8.2) L Albumin 3.0 g/dL (3.4-5.0) L Albumin/Globulin Ratio 0.9 (1.0-1.7) L O2 Saturation 92 % (92-99) Arterial Blood pH 7.42 (7.35-7.45) Arterial Blood pCO2 at Patient Temp 38 mmHg (35-46) Arterial Blood pO2 at Patient Temp 66 mmHg (65-108) Arterial Blood HCO3 24 mmol/L (21-28) Arterial Blood Base Excess 0 mmol/L (-3-3) Oxyhemoglobin 91.5 % Methemoglobin 0.5 % (0.0-1.9) Carbon Monoxide, Quantitative 0.3 % (0.0-1.9) FiO2 32 SARS-CoV-2 RNA (ANNA) Negative (Negative) Test 03/14/21 23:48 03/15/21 00:15 03/15/21 00:30 03/15/21 04:00 Glucose (Fingerstick) 278 mg/dL (70-99) H Troponin I Quantitative 0.038 ng/mL (0.000-0.055) 0.060 ng/mL (0.000-0.055) Urine Collection Type Unknown Urine Color Yellow Urine Clarity Clear Urine pH 5.0 (<5.0-8.0) Urine Specific [place] 1.010 (1.000-1.030) Urine Protein Negative mg/dL (NEG-TRACE) Urine Glucose (UA) Negative mg/dL (NEG) Urine Ketones (Stick) Negative mg/dL (NEG) Urine Blood Small (NEG) Urine Nitrite Negative (NEG) Urine Bilirubin Negative (NEG) Urine Urobilinogen Dipstick 0.2 mg/dL (0.2 mg/dL) Urine Leukocyte Esterase Moderate (NEG) Urine RBC 3-5 /HPF (0-2) Urine WBC 20-40 /HPF (0-4) Urine Squamous Epithelial Cells Few /LPF Urine Bacteria Few /HPF (0-FEW) Urine Mucus Slight /LPF Urine Yeast Present /HPF Total Bilirubin 2.4 mg/dL (0.2-1.0) H Direct Bilirubin 0.6 mg/dL (0.0-0.2) H Aspartate Amino Transferase (AST) 32 U/L (15-37) Alanine Aminotransferase (ALT) 38 U/L (14-59) Alkaline Phosphatase 270 U/L (46-116) H Total Protein 6.4 g/dL (6.4-8.2) Albumin 2.7 g/dL (3.4-5.0) L Test 03/15/21 08:14 Glucose (Fingerstick) 243 mg/dL (70-99) H Laboratory Tests 03/14/21 19:15 Laboratory Tests 03/14/21 19:15 ASSESSMENT/PLAN ASSESSMENT/PLAN 1. Acute on chronic respiratory failure 2. Acute on chronic CHF with possibly systolic dysfunction; s/p IV diuresis 3. CAD s/p PCI/stent. Follows with [facility] 4. Mild troponin elevation; highest 0.06. Most probably type II, demand ischemia 5. Hypertensive urgency; better controlled 6. Hyperlipidemia; statin 7. Diabetes, II. uncontrolled 8. Hypothyroidism; on replacement 9. Fevers 10. PUI; rapid COVID negative Recommendations Trend troponin Lipids Echo to assess LV systolic function Secondary prevention Resume home antiHTN therapy resumed; titrate as warranted Mild diuresis with monitoring of renal function Obtain cardiac records from [facility] Obtain ischemic evaluation if none recently. GERARDO RUFFIN MD 03/15/21 5173: CARDIAC CONSULT ASSESSMENT/PLAN ASSESSMENT/PLAN Patient seen and examined. Agree with MANAGER CALL's assessment and plan. Continue diuresis for acute on chronic probably systolic HF Check echo to assess LVD BP better controlled since admission CAD clinically stable Plan echo to assess LVF and outpatient ischemic eval Thank you for your consultation MICAELA LILLY APRN 8, 2021 11:57 GERARDO RUFFIN MD Mar 15, 2021 21:19
[2021-03-15 12:12] LABS: CALCIUM 8.6 mg/dL (8.5-10.1); CREATININE 1.1 mg/dL (0.6-1.0); GFR 50.5; POTASSIUM 4.8 mmol/L (3.5-5.1)
[2021-03-15 12:18] LABS: CHOLESTEROL/HDL RATIO 2.4
--- NOTE | 2021-03-15 14:29 | NUR ---
SS following for discharge planning. SS reviewed pt chart and discussed with pt RN. Pt is from home with spouse and is currently requiring oxygen at four liters nasal canula. Pt reported that she had home oxygen but no longer has it anymore and would need it re-ordered through [facility] if needed at discharge. COVID19 negative. Pt on IV Zosyn. PT/OT ordered. OT recommended fci unit. SS met with pt to discuss discharge planning and fci unit. Pt declining fci unit at this time. Pt stated that she recently was in rehabilitation at [facility] and after her experience she would prefer to discharge to home with home healthcare with no preference of company. Physician notified. SS will continue to follow for discharge planning.
[2021-03-15] MEDS ORDERED: POTA20TA4 PO (14:31)
[2021-03-15] MEDS ORDERED: GLIP-26 PO (14:31)
[2021-03-15] MEDS ORDERED: SIMV80TA17 PO (14:31)
[2021-03-15] MEDS ORDERED: ISOS30TA68 PO (14:31)
[2021-03-15] MEDS ORDERED: PANT40TA77 PO (14:31)
[2021-03-15] MEDS ORDERED: METO5TAB55 PO (14:31)
[2021-03-15] MEDS ORDERED: CARV25TA PO (14:31)
[2021-03-15] MEDS ORDERED: FURO40TA4 PO (14:31)
[2021-03-15] MEDS ORDERED: TRAM50TA PO (14:31)
[2021-03-15] MEDS ORDERED: METF10007 PO (14:31)
[2021-03-15] MEDS ORDERED: LOSA1TAB19 PO (14:31)
[2021-03-15] MEDS ORDERED: CLOP75TA PO (14:31)
[2021-03-15] MEDS ORDERED: BENZ100C PO (14:31)
[2021-03-15] MEDS ORDERED: LEVO100T5 PO (14:31)
[2021-03-15] MEDS: METOCLOPRAMIDE 5 MG TABLET. PO SCH (15:53)
[2021-03-15] MEDS: PANTOPRAZOLE 40 MG TABLET.DR. PO SCH (15:53)
[2021-03-15] MEDS: CARVEDILOL 12.5 MG TABLET. PO SCH (15:53)
[2021-03-15] MEDS: traMADol 50 MG TABLET PO PRN (17:31)
[2021-03-15] MEDS: SIMVASTATIN 40 MG TABLET. PO SCH (20:54)
[2021-03-15] MEDS ORDERED: INSULIN GLARGINE SYRINGE. SQ SCH (21:00)
[2021-03-16 03:00] VITALS: BP 132/81
[2021-03-16] MEDS: PANTOPRAZOLE 40 MG TABLET.DR. PO SCH ×2 (06:20→17:22)
[2021-03-16] MEDS: PIPERACILLIN/TAZOBACTAM 3.375 GM in IV NORMAL SALINE 50ML 50 ML IV SCH ×4 (06:20→23:41)
[2021-03-16] MEDS: LEVOTHYROXINE 100 MCG TABLET PO SCH (06:20)
[2021-03-16 07:00] VITALS: BP 128/64
[2021-03-16] MEDS: hydroCHLOROthiazide 12.5 MG CAPSULE PO SCH (08:42)
[2021-03-16] MEDS: ASPIRIN ENTERIC COATED 81 MG TABLET.DR. PO SCH (08:42)
[2021-03-16] MEDS: METOCLOPRAMIDE 5 MG TABLET. PO SCH ×2 (08:43→17:22)
[2021-03-16] MEDS: DOXYCYCLINE HYCLATE 100 MG TABLET PO SCH ×2 (08:43→21:13)
[2021-03-16] MEDS: CARVEDILOL 12.5 MG TABLET. PO SCH ×2 (08:43→17:22)
[2021-03-16] MEDS: ISOSORBIDE MONONITRATE ER 30 MG TAB.ER.24H PO SCH (08:43)
[2021-03-16] MEDS: FUROSEMIDE 40 MG TABLET. PO SCH (08:44)
[2021-03-16] MEDS: LOSARTAN POTASSIUM 50 MG TABLET. PO SCH (08:44)
[2021-03-16] MEDS: CLOPIDOGREL BISULFATE 75 MG TABLET PO SCH (08:44)
[2021-03-16] MEDS: INSULIN LISPRO 300 UNITS/3 ML VIAL. SQ SCH ×3 (08:48→17:30)
[2021-03-16 08:49] LABS: CALCIUM 8.3 mg/dL (8.5-10.1); CREATININE 1.1 mg/dL (0.6-1.0); GFR 50.5; POTASSIUM 4.1 mmol/L (3.5-5.1)
--- NOTE | 2021-03-16 10:18 | PDOC ---
[employer] PROGRESS NOTE Date of Service DOS: DATE: 03/16/21 TIME: 10:08 Chief Complaint Chief Complaint A/P: Acute hypoxic respiratory failure -multifactorial with acute CHF exacerbation likely pneumonia as well will treat both. Needs repeat outpatient sleep study as well for untreated TONI. Acute diastolic CHF -will diurese. Reconcile her home medications. Consult cardiology. Obtain [facility] records Acute encephalopathy - metabolic due to hypoxia, will monitor mental status Hyperkalemia -improved with IV Lasix dosing. Will monitor Anemia -likely of chronic disease, will check iron and B12 levels. No blood loss noted. Transaminitis -possibly congestive hepatopathy from acute CHF he notes no history of liver disease though she does note history of esophageal strictures and had balloon dilation years ago. CAD s/p SAM x1 - on antiplatelet. has cardiology f/u at [facility] Polyarthralgias - s/p knee replacements bilaterally, recovering from revision on left knee after fall at home TONI no longer on CPAP - stopped as she rolls around frequently but notes she is sleeping recliner would be more appropriate for repeat sleep study as she is obviously gaining benefit from being on BiPAP. Chronic hypoxic respiratory failure - on 4L NCO2 per her own report, likely due to cor pulmonale' Morbid obesity - counseled on lifestyle modification Moderate/Severe protein calorie malnutrition - machine splitter to see HLD - cont statin HTN - cont home meds DM2 - sliding scale insulin, basal bolus plus regimen while inpatient FEN - ADA cardiac diet PPX - lovenox CODE - FULL Dispo - inpatient [facility] History of Present Illness History of Present Illness Ms Diaz is a 60 yo F w/ PMHx CAD s/p SAM x1, diastolic CHF, polyarthralgias, TONI no longer on CPAP, chronic hypoxic respiratory failure, morbid obesity, HLD, HTN, DM2 who presents to ED c/o 2 weeks of shortness of breath. The shortness of breath has been progressive while she was at acute rehab in [place] after a left knee revision after a femoral fracture with a fall onto prosthetic left knee 5 weeks ago, repaired by Dr. Mendez at [facility]. She notes significant CANNON and orthopnea and noted she sleeps in her recliner for the past year. She notes she was released from [facility] on 03/13/2021 though she continues to say July 13, despite frequent correction and redirection, her does note it was 03/13/2021 Labs with ABG on 3 L nasal cannula 7.4 , CBC WBC 9.8 with left shift, Hb 8.6, platelets 330, NA 138, K5.6, BUN 28, CR 0.9, glucose 300, INR 1.4, D-dimer 2.55 lactic acid 1.6, troponin 0 3 8, albumin 2.7, bilirubin 2.4, AST 57, ALT 40, alkaline phosphatase 308. Chest radiograph with cardiomegaly and multifocal consolidation likely pulmonary edema. Given elevated D-dimer and severity of her symptoms she underwent CT chest abdomen pelvis with pulmonary edema again noted and overall soft tissue anasarca splenomegaly nondistended gallbladder. Given her the severity of her respiratory distress she was placed on BiPAP had Calderon catheter placed and was admitted to [facility] for further treatment of acute CHF. 03/16: Afebrile, currently breathing on baseline 4 L nasal cannula. 1200 mL fluid output yesterday, but net +80 mL overnight. Will continue to diurese and treat with empiric antibiotics. Echocardiogram pending. Will need to adjust insulin orders. Vitals/I&O Vitals/I&O: Vital Signs Date Time Temp Pulse Resp B/P (MAP) Pulse Ox O2 Delivery O2 Flow Rate FiO2 03/16/21 08:44 70 128/64 03/16/21 07:00 98.0 19 94 Nasal Cannula 4.0 98.0 I & O 03/15/21 03/15/21 03/16/21 15:00 23:00 07:00 Intake Total 915 ml 865 ml 300 ml Output Total 1350 ml 650 ml Balance 915 ml -485 ml -350 ml Physical Exam General: Alert, Cooperative, mild distress Heart: Regular rate Lungs: Crackles Abdomen: Normal bowel sounds, Soft, No tenderness, No masses Extremities: No clubbing, No cyanosis, Normal pulses, Other (Bilateral venous stasis dermatitis, 2+ edema) Skin: No rashes, No breakdown, Other (Left knee sutures intact) Labs Labs: Laboratory Tests Test 03/15/21 11:45 03/15/21 11:48 03/15/21 17:15 03/15/21 18:33 Sodium Level 140 mmol/L (136-145) Potassium Level 4.8 mmol/L (3.5-5.1) Chloride Level 102 mmol/L (98-107) Carbon Dioxide Level 29 mmol/L (21-32) Anion Gap 9 (6-14) Blood Urea Nitrogen 31 mg/dL (7-20) Creatinine 1.1 mg/dL (0.6-1.0) Estimated GFR (Cockcroft-Gault) 50.5 Glucose Level 297 mg/dL (70-99) Calcium Level 8.6 mg/dL (8.5-10.1) Troponin I Quantitative 0.076 ng/mL (0.000-0.055) 0.059 ng/mL (0.000-0.055) Triglycerides Level 88 mg/dL (0-150) Cholesterol Level 73 mg/dL (0-200) LDL Cholesterol, Calculated 24 mg/dL (0-100) VLDL Cholesterol, Calculated 18 mg/dL (0-40) Non-HDL Cholesterol Calculated 42 mg/dL (0-129) HDL Cholesterol 31 mg/dL (40-60) Cholesterol/HDL Ratio 2.4 Glucose (Fingerstick) 283 mg/dL (70-99) 288 mg/dL (70-99) Test 03/15/21 20:27 03/16/21 07:19 03/16/21 07:45 Glucose (Fingerstick) 302 mg/dL (70-99) 270 mg/dL (70-99) Sodium Level 142 mmol/L (136-145) Potassium Level 4.1 mmol/L (3.5-5.1) Chloride Level 104 mmol/L (98-107) Carbon Dioxide Level 31 mmol/L (21-32) Anion Gap 7 (6-14) Blood Urea Nitrogen 33 mg/dL (7-20) Creatinine 1.1 mg/dL (0.6-1.0) Estimated GFR (Cockcroft-Gault) 50.5 Glucose Level 272 mg/dL (70-99) Calcium Level 8.3 mg/dL (8.5-10.1) Assessment and Plan Assessmemt and Plan Problems Medical Problems: (1) CHF exacerbation Status: Acute (2) Hyperkalemia Status: Acute (3) Person under investigation for COVID-19 Status: Acute Comment Review of Relevant I have reviewed the following items alexa (where applicable) has been applied. Medications: Current Medications Medications (Trade) Dose Ordered Sig/Felisa Route PRN Reason Start Time Stop Time Status Last Admin Dose Admin Enoxaparin Sodium (Lovenox 60mg Syringe) 60 mg Q12HR SQ 03/15/21 21:00 03/16/21 08:44 Aspirin (Ecotrin) 81 mg DAILYWBKFT PO 03/16/21 08:00 03/16/21 08:42 Clopidogrel Bisulfate (Plavix) 75 mg DAILY PO 03/16/21 09:00 03/16/21 08:44 Furosemide (Lasix) 40 mg DAILY PO 03/16/21 09:00 03/16/21 08:44 Isosorbide Mononitrate (Imdur) 30 mg DAILY PO 03/16/21 09:00 03/16/21 08:43 Levothyroxine Sodium (Synthroid) 100 mcg DAILY07 PO 03/16/21 07:00 03/16/21 06:20 Metoclopramide HCl (Reglan) 5 mg BIDAC PO 03/15/21 16:30 03/16/21 08:43 Pantoprazole Sodium (Protonix) 40 mg BIDAC PO 03/15/21 16:30 03/16/21 06:20 Carvedilol (Coreg) 25 mg BIDWMEALS PO 03/15/21 17:00 03/16/21 08:43 Losartan Potassium (Cozaar) 50 mg DAILY PO 03/16/21 09:00 03/16/21 08:44 Simvastatin (Zocor) 80 mg QHS PO 03/15/21 21:00 03/15/21 20:54 Insulin Glargine (Lantus Syringe) 15 unit QHS SQ 03/15/21 21:00 03/15/21 21:01 Hydrochlorothiazide (Microzide) 12.5 mg DAILY PO 03/16/21 09:00 03/16/21 08:42 Justifications for Admission Other Justification MELBA LEON MD Mar 16, 2021 10:18
[2021-03-16 11:00] VITALS: BP 127/56
--- NOTE | 2021-03-16 11:48 | NUR ---
DR LEON NOTIFIED OF PT'S GLUCOSE >350.
--- NOTE | 2021-03-16 11:55 | PDOC ---
BAM LYLE MILK RECEIVER 03/16/21 1155: CARDIO Progress Notes Date and Time Date of Service 03/16/2021 Time of Evaluation 1110 Subjective Subjective: No Chest Pain, No shortness of breath, No Palpitations Vitals Vitals Vital Signs Date Time Temp Pulse Resp B/P (MAP) Pulse Ox O2 Delivery O2 Flow Rate FiO2 03/16/21 08:44 70 128/64 03/16/21 08:00 Nasal Cannula 4.0 03/16/21 07:00 98.0 19 94 98.0 Weight Weight [ ] Input and Output Intake and Output Intake and Output 03/16/21 07:00 Intake Total 2080 ml Output Total 2000 ml Balance 80 ml Intake Oral 1930 ml IV Total 150 ml Output Urine Total 2000 ml # Bowel Movements 1 Laboratory Labs Laboratory Tests Test 03/15/21 11:45 03/15/21 11:48 03/15/21 17:15 03/15/21 18:33 Sodium Level 140 mmol/L (136-145) Potassium Level 4.8 mmol/L (3.5-5.1) Chloride Level 102 mmol/L (98-107) Carbon Dioxide Level 29 mmol/L (21-32) Anion Gap 9 (6-14) Blood Urea Nitrogen 31 mg/dL (7-20) Creatinine 1.1 mg/dL (0.6-1.0) Estimated GFR (Cockcroft-Gault) 50.5 Glucose Level 297 mg/dL (70-99) Calcium Level 8.6 mg/dL (8.5-10.1) Troponin I Quantitative 0.076 ng/mL (0.000-0.055) 0.059 ng/mL (0.000-0.055) Triglycerides Level 88 mg/dL (0-150) Cholesterol Level 73 mg/dL (0-200) LDL Cholesterol, Calculated 24 mg/dL (0-100) VLDL Cholesterol, Calculated 18 mg/dL (0-40) Non-HDL Cholesterol Calculated 42 mg/dL (0-129) HDL Cholesterol 31 mg/dL (40-60) Cholesterol/HDL Ratio 2.4 Glucose (Fingerstick) 283 mg/dL (70-99) 288 mg/dL (70-99) Test 03/15/21 20:27 03/16/21 07:19 03/16/21 07:45 03/16/21 11:30 Glucose (Fingerstick) 302 mg/dL (70-99) 270 mg/dL (70-99) 359 mg/dL (70-99) Sodium Level 142 mmol/L (136-145) Potassium Level 4.1 mmol/L (3.5-5.1) Chloride Level 104 mmol/L (98-107) Carbon Dioxide Level 31 mmol/L (21-32) Anion Gap 7 (6-14) Blood Urea Nitrogen 33 mg/dL (7-20) Creatinine 1.1 mg/dL (0.6-1.0) Estimated GFR (Cockcroft-Gault) 50.5 Glucose Level 272 mg/dL (70-99) Calcium Level 8.3 mg/dL (8.5-10.1) Microbiology Micro Microbiology 03/15/21 Urine Culture - Final, Complete 03/14/21 Blood Culture - Preliminary, Resulted NO GROWTH AFTER 1 DAY Physical Exam HEENT: Neck Supple W Full Motion Chest: Symmetric LUNGS: Other (basilar crackles) Heart: S1S2, RRR (SR) Abdomen: Other (obese) Extremities: Other (3+ bilateral LE edema) Neurology: alert, oriented, follow commands Assessment Assessment 1. Acute on chronic respiratory failure 2. Acute on chronic CHF with possibly systolic dysfunction 3. CAD s/p PCI/stent. Follows with [facility], clincally stable 4. Mild troponin elevation; highest 0.06. Most probably type II, demand ischemia 5. Hypertensive urgency; controlled 6. Hyperlipidemia; statin, HDL low but otherwise on goal 7. Diabetes, II. uncontrolled 8. Hypothyroidism; on replacement 9. Fevers: better today 10. PUI; rapid COVID negative 11. PAFIB: brief bursts potentially associated with uncontrolled TONI and fever 12. TONI: noncompliant with CPAP last use 10 yrs ago will need to get retested. Recommendations 1. TTE today 2. Recommend SNU but would prefer HH 3. Secondary prevention measures. Continue ASA 4. Lasix therapy IV dose today 5. Obtain cardiac records from [facility] 6. Obtain ischemic evaluation if none recently. 7. She sees "Yanelis" a mining analyst at [facility]. She will need MCOT and note burden and need for further anticoagulation. discussed with pt. Justicifation of Admission Dx: Justifications for Admission: Justification of Admission Dx: Yes GERARDO RUFFIN MD 03/16/212137: CARDIO Progress Notes Assessment Assessment Patient seen and examined. Agree with ADMINISTRATIVE COURT JUSTICE's assessment and plan. Continue diuresis for acute on chronic probably systolic HF Check echo to assess LVF BP better controlled since admission CAD clinically stable Plan outpatient ischemic BAM Johnson APRN Mar 16, 2021 11:55 GERAROD RUFFIN MD Mar 16, 2021 21:38
[2021-03-16] MEDS ORDERED: FUROSEMIDE 40 MG/4 ML VIAL. IVP ONE (12:00)
[2021-03-16] MEDS: glipiZIDE ER 2.5 MG TAB.ER.24 PO SCH (13:01)
--- NOTE | 2021-03-16 14:54 | NUR ---
SS following up with discharge planning. SS reviewed pt chart and discussed with pt RN. Pt is currently requiring oxygen at four liters nasal canula. Pt on IV Zosyn. COVID19 negative. PT/OT recommended long-term unit. Pt declining long-term unit at this time. Pt agreeable to home healthcare. SS will continue to follow for discharge planning.
[2021-03-16 15:00] VITALS: BP 133/60
[2021-03-16 19:14] VITALS: BP 132/60
[2021-03-16] MEDS ORDERED: INSULIN LISPRO 300 UNITS/3 ML VIAL. SQ ONE (21:00)
[2021-03-16] MEDS: SIMVASTATIN 40 MG TABLET. PO SCH (21:13)
[2021-03-16] MEDS: LACTOBACILLUS RHAMNOSUS GG 1 CAPSULE. PO SCH (21:13)
[2021-03-16] MEDS: INSULIN GLARGINE SYRINGE. SQ SCH (21:20)
[2021-03-16 22:55] VITALS: BP 108/51
[2021-03-17] MEDS: traMADol 50 MG TABLET PO PRN (01:21)
[2021-03-17 02:18] VITALS: BP 119/58
[2021-03-17] MEDS: PIPERACILLIN/TAZOBACTAM 3.375 GM in IV NORMAL SALINE 50ML 50 ML IV SCH ×2 (05:33→13:01)
[2021-03-17 07:26] LABS: BASO # 0.1 x10^3/uL (0.0-0.2); BASO % 1 % (0-3); EOS # 0.2 x10^3/uL (0.0-0.7); EOS % 2 % (0-3); HEMATOCRIT 23.6 % (36.0-47.0); HEMOGLOBIN 7.5 g/dL (12.0-15.5); LYMPH # 1.6 x10^3/uL (1.0-4.8); LYMPH % 18 % (24-48); MEAN CORPUSCULAR HEMOGLOBIN 25 pg (25-35); MEAN CORPUSCULAR HGB CONC 32 g/dL (31-37); MEAN CORPUSCULAR VOLUME 78 fL (79-100); MONO # 0.8 x10^3/uL (0.0-1.1); MONO % 9 % (0-9); NEUT # 6.5 x10^3/uL (1.8-7.7); NEUT % 71 % (31-73); PLATELET COUNT 273 x10^3/uL (140-400); RED BLOOD COUNT 3.02 x10^6/uL (3.50-5.40); RED CELL DISTRIBUTION WIDTH 17.8 % (11.5-14.5); WHITE BLOOD COUNT 9.2 x10^3/uL (4.0-11.0)
[2021-03-17 07:33] VITALS: BP 157/62
--- NOTE | 2021-03-17 07:51 | PDOC ---
[employer] PROGRESS NOTE Date of Service DOS: DATE: 03/17/21 TIME: 07:56 Chief Complaint Chief Complaint A/P: Acute hypoxic respiratory failure -multifactorial with acute CHF exacerbation and likely gram negative pneumonia as well will treat both. Needs repeat outpatient sleep study as well for untreated TONI. Acute diastolic CHF -will ney. Reconciled her home medications. Consult cardiology. Obtain [facility] records Acute encephalopathy - metabolic due to hypoxia, will monitor mental status Hyperkalemia -improved with IV Lasix dosing. Will monitor Anemia -likely of chronic disease, will check iron and B12 levels. No blood loss noted. Transaminitis -possibly congestive hepatopathy from acute CHF he notes no history of liver disease though she does note history of esophageal strictures and had balloon dilation years ago. CAD s/p SAM x1 - on antiplatelet. has cardiology f/u at [facility] Polyarthralgias - s/p knee replacements bilaterally, recovering from revision on left knee after fall at home TONI no longer on CPAP - stopped as she rolls around frequently but notes she is sleeping recliner would be more appropriate for repeat sleep study as she is obviously gaining benefit from being on BiPAP. Chronic hypoxic respiratory failure - on 4L NCO2 per her own report, likely due to cor pulmonale' Morbid obesity - counseled on lifestyle modification Moderate/Severe protein calorie malnutrition - mother's helper to see HLD - cont statin HTN - cont home meds DM2 - sliding scale insulin, basal bolus plus regimen while inpatient FEN - ADA cardiac diet PPX - lovenox CODE - FULL Dispo - inpatient [facility] History of Present Illness History of Present Illness Ms Diaz is a 60 yo F w/ PMHx CAD s/p SAM x1, diastolic CHF, polyarthralgias, TONI no longer on CPAP, chronic hypoxic respiratory failure, morbid obesity, HLD, HTN, DM2 who presents to ED c/o 2 weeks of shortness of breath. The shortness of breath has been progressive while she was at acute rehab in [place] after a left knee revision after a femoral fracture with a fall onto prosthetic left knee 5 weeks ago, repaired by Dr. Mendez at [facility]. She notes significant CANNON and orthopnea and noted she sleeps in her recliner for the past year. She notes she was released from [facility] on 03/13/2021 though she continues to say July 13, despite frequent correction and redirection, her does note it was 03/13/2021 Labs with ABG on 3 L nasal cannula 7.4 , CBC WBC 9.8 with left shift, Hb 8.6, platelets 330, NA 138, K5.6, BUN 28, CR 0.9, glucose 300, INR 1.4, D-dimer 2.55 lactic acid 1.6, troponin 0 3 8, albumin 2.7, bilirubin 2.4, AST 57, ALT 40, alkaline phosphatase 308. Chest radiograph with cardiomegaly and multifocal consolidation likely pulmonary edema. Given elevated D-dimer and severity of her symptoms she underwent CT chest abdomen pelvis with pulmonary edema again noted and overall soft tissue anasarca splenomegaly nondistended gallbladder. Given her the severity of her respiratory distress she was placed on BiPAP had Calderon catheter placed and was admitted to [facility] for further treatment of acute CHF. 03/16: Afebrile, currently breathing on baseline 4 L nasal cannula. 1200 mL fluid output yesterday, but net +80 mL overnight. Will continue to diurese and treat with empiric antibiotics. Echocardiogram pending. Will need to adjust insulin orders. Afebrile. Procalcitonin elevated probably as a hepatic still. She is still little confused and anxious. Discussed with bedside needs repeat sleep study. And echocardiogram today. Glucose still in the 200s despite 25 units Lantus. Vitals/I&O Vitals/I&O: Vital Signs Date Time Temp Pulse Resp B/P (MAP) Pulse Ox O2 Delivery O2 Flow Rate FiO2 03/17/21 07:33 97.8 66 19 157/62 (93) 96 Nasal Cannula 4.0 97.8 I & O 03/16/21 03/16/21 03/17/21 14:53 22:53 06:53 Intake Total 75 ml 300 ml 700 ml Output Total 1275 ml Balance 75 ml -975 ml 700 ml Physical Exam General: Alert, Cooperative, mild distress Heart: Regular rate Lungs: Crackles Abdomen: Normal bowel sounds, Soft, No tenderness, No masses Extremities: No clubbing, No cyanosis, Normal pulses, Other (Bilateral venous stasis dermatitis, 2+ edema) Skin: No rashes, No breakdown, Other (Left knee sutures intact) Labs Labs: Laboratory Tests Test 03/16/21 11:30 03/16/21 17:08 03/16/21 20:20 03/17/21 02:21 Glucose (Fingerstick) 359 mg/dL (70-99) 410 mg/dL (70-99) 411 mg/dL (70-99) 293 mg/dL (70-99) Test 03/17/21 07:38 Glucose (Fingerstick) 200 mg/dL (70-99) Assessment and Plan Assessmemt and Plan Problems Medical Problems: (1) CHF exacerbation Status: Acute (2) Hyperkalemia Status: Acute (3) Person under investigation for COVID-19 Status: Acute Comment Review of Relevant I have reviewed the following items alexa (where applicable) has been applied. Medications: Current Medications Medications (Trade) Dose Ordered Sig/Felisa Route PRN Reason Start Time Stop Time Status Last Admin Dose Admin Aspirin (Ecotrin) 81 mg DAILYWBKFT PO 03/16/21 08:00 03/16/21 08:42 Clopidogrel Bisulfate (Plavix) 75 mg DAILY PO 03/16/21 09:00 03/16/21 08:44 Furosemide (Lasix) 40 mg DAILY PO 03/16/21 09:00 03/16/21 08:44 Isosorbide Mononitrate (Imdur) 30 mg DAILY PO 03/16/21 09:00 03/16/21 08:43 Losartan Potassium (Cozaar) 50 mg DAILY PO 03/16/21 09:00 03/16/21 08:44 Hydrochlorothiazide (Microzide) 12.5 mg DAILY PO 03/16/21 09:00 03/16/21 08:42 Furosemide (Lasix) 40 mg 1X ONCE IVP 03/16/21 12:00 03/16/21 12:01 DC 03/16/21 12:09 Glipizide (Glucotrol Er) 10 mg DAILY08 PO 03/16/21 13:00 03/16/21 13:01 Insulin Glargine (Lantus Syringe) 25 unit QHS SQ 03/16/21 21:00 03/16/21 21:20 Insulin Human Lispro (HumaLOG) 7 units TIDWMEALS SQ 03/16/21 12:30 03/16/21 17:30 Lactobacillus Rhamnosus (Culturelle) 1 cap BID PO 03/16/21 21:00 03/16/21 21:13 Insulin Human Lispro (HumaLOG) 15 units 1X ONCE SQ 03/16/21 21:00 03/16/21 21:02 DC 03/16/21 21:21 Justifications for Admission Other Justification GERARD FRYE MD Mar 17, 2021 07:51
[2021-03-17] MEDS ORDERED: INSULIN LISPRO 300 UNITS/3 ML VIAL. SQ SCH (08:00)
[2021-03-17 08:42] LABS: CALCIUM 8.5 mg/dL (8.5-10.1); CREATININE 1.2 mg/dL (0.6-1.0); GFR 45.7; POTASSIUM 3.8 mmol/L (3.5-5.1)
[2021-03-17] MEDS: PANTOPRAZOLE 40 MG TABLET.DR. PO SCH ×2 (09:02→18:52)
[2021-03-17] MEDS: ASPIRIN ENTERIC COATED 81 MG TABLET.DR. PO SCH (09:02)
[2021-03-17] MEDS: LACTOBACILLUS RHAMNOSUS GG 1 CAPSULE. PO SCH ×2 (09:03→20:57)
[2021-03-17] MEDS: CLOPIDOGREL BISULFATE 75 MG TABLET PO SCH (09:03)
[2021-03-17] MEDS: LEVOTHYROXINE 100 MCG TABLET PO SCH (09:03)
[2021-03-17] MEDS: METOCLOPRAMIDE 5 MG TABLET. PO SCH ×2 (09:04→18:52)
[2021-03-17] MEDS: CARVEDILOL 12.5 MG TABLET. PO SCH ×2 (09:04→18:52)
[2021-03-17] MEDS: hydroCHLOROthiazide 12.5 MG CAPSULE PO SCH (09:04)
[2021-03-17] MEDS: DOXYCYCLINE HYCLATE 100 MG TABLET PO SCH ×2 (09:04→20:57)
[2021-03-17] MEDS: LOSARTAN POTASSIUM 50 MG TABLET. PO SCH (09:04)
[2021-03-17] MEDS: ISOSORBIDE MONONITRATE ER 30 MG TAB.ER.24H PO SCH (09:05)
[2021-03-17] MEDS: FUROSEMIDE 40 MG TABLET. PO SCH (09:05)
[2021-03-17] MEDS: INSULIN LISPRO 300 UNITS/3 ML VIAL. SQ SCH ×6 (09:17→18:57)
--- NOTE | 2021-03-17 09:53 | NUR ---
SS following up with discharge planning. SS reviewed pt chart and discussed with pt RN. Pt is currently requiring oxygen at four liters nasal canula. Pt on IV Zosyn. COVID19 negative. PT/OT recommended shelter unit. Pt's spouse concerned about pt wanting to go home stating that it is unsafe for her to return to home due to pt's mobility and pt needing to climb five stairs. SS and pt's spouse met with pt and discussed concerns and shelter unit. Pt not agreeable to shelter unit. Pt and pt's spouse requesting referral to [facility], ; fax [phone]. SS phoned and faxed referral as requested. SS will continue to follow for discharge planning. Addendum: 03/17/21 at 1229 by MALLORIE NICE SS Pt accepted at [facility] pending insurance authorization.
[2021-03-17 10:33] VITALS: BP 145/61
[2021-03-17] MEDS: glipiZIDE ER 2.5 MG TAB.ER.24 PO SCH (13:00)
[2021-03-17 14:52] VITALS: BP 137/64
--- NOTE | 2021-03-17 17:25 | CARD ---
MR#: [id number] Date of Study: 03/17/2021 Ordering Physician: GERARD FRYE, Referring Physician: GERARD FRYE, Tech: Sole Víctor, [facility] APPROVED REPORT EXAM: Two-dimensional and M-mode echocardiogram with Doppler and color Doppler. Other Information Quality : AverageHR: 65bpm Technically limited study due to obesity INDICATION Congestive Heart Failure 2D DIMENSIONS RVDd3.3 (2.9-3.5cm)Left Atrium(2D)4.1 (1.6-4.0cm) IVSd0.9 (0.7-1.1cm)Aortic Root(2D)2.6 (2.0-3.7cm) LVDd5.3 (3.9-5.9cm)LVOT Diameter2.1 (1.8-2.4cm) PWd1.0 (0.7-1.1cm)LVDs3.7 (2.5-4.0cm) FS (%) 29.1 %SV73.8 ml LVEF(%)51.4 (>50%) Aortic Valve AoV Peak Jordin.155.9cm/sAoV VTI33.1cm AO Peak GR.9.7mmHgLVOT VTI 22.07cm AO Mean GR.6mmHg Mitral Valve MV E Hgfwjccv905.5cm/sMV DECEL [id number] MV A Strnrjoc01.9cm/sE/A Ratio2.1 TDI Lateral E' P. V6.60cm/sMedial E' P. V8.07cm/s E/Lateral E'18.3E/Medial E'14.9 Tricuspid Valve TR P. [id number]/sRAP [id number] TR Peak Gr.44bfMsKLBK49vnNo LEFT VENTRICLE The left ventricle is normal size. There is normal left ventricular wall thickness. The left ventricu lar systolic function is normal. The Ejection Fraction is 55%. There is normal LV segmental wall honorio on. Tissue Doppler imaging reveals moderate left ventricular diastolic dysfunction. RIGHT VENTRICLE The right ventricle is mildly dilated. There is normal right ventricular wall thickness. The right ve ntricular systolic function is normal. ATRIA The left atrium size is normal. The right atrium is borderline dilated. The interatrial septum is int act with no evidence for an atrial septal defect or patent foramen ovale as noted on 2-D or Doppler i maging. AORTIC VALVE The aortic valve is normal in structure and function. Doppler and Color Flow revealed trace aortic re gurgitation. There is no significant aortic valvular stenosis. Calculated aortic valve area is 2.22 c m2 with maximum pressure gradient of 10 mmHg and mean pressure gradient of 6 mmHg. MITRAL VALVE The mitral valve is normal in structure and function. There is no evidence of mitral valve prolapse. There is no mitral valve stenosis. Doppler and Color-flow revealed trace mitral regurgitation. TRICUSPID VALVE The tricuspid valve is normal in structure and function. Doppler and Color Flow revealed trace tricus pid regurgitation with an estimated PAP of 42 mmHg. There is no tricuspid valve stenosis. PULMONIC VALVE The pulmonic valve is not well visualized. Doppler and Color Flow revealed no pulmonic valvular regur gitation. GREAT VESSELS The aortic root is normal in size. The ascending aorta is normal in size. The IVC is dilated. PERICARDIAL EFFUSION There is no evidence of significant pericardial effusion. Critical Notification Critical Value: No <Conclusion> The left ventricular systolic function is normal. The Ejection Fraction is 55%. There is normal LV segmental wall motion. Tissue Doppler imaging reveals moderate left ventricular diastolic dysfunction. Trace mitral regurgitation. Trace tricuspid regurgitation with an estimated PAP of 42 mmHg. There is no evidence of significant pericardial effusion. Signed by : Omar Aldrich, Electronically Approved : 03/17/2021 17:24:54
--- NOTE | 2021-03-17 17:37 | PDOC ---
PROGRESS NOTES Date of Service: DATE: 03/17/21 TIME: 17:36 Subjective Subjective c/o panic attacks and dyspnea Objective Objective Vital Signs Date Time Temp Pulse Resp B/P (MAP) Pulse Ox O2 Delivery O2 Flow Rate FiO2 03/17/21 14:52 98.0 65 19 137/64 (88) 96 Nasal Cannula 4.0 98.0 Intake and Output 03/17/21 07:00 Intake Total 1075 ml Output Total 1275 ml Balance -200 ml Intake Oral 1000 ml IV Total 75 ml Output Urine Total 1275 ml # Bowel Movements 1 Physical Exam Abdomen: Normal bowel sounds, Soft, No tenderness, No masses Heart: Regular rate Extremities: No clubbing, No cyanosis, Normal pulses, Other (Bilateral venous stasis dermatitis, 1+ edema) General: Alert, Cooperative, mild distress HEENT: Atraumatic, PERRLA, EOMI, Mucous membr. moist/pink Lungs: Other (Bilateral crackles) Neuro: Normal speech, Reflexes 2+ Psych/Mental Status: Other (Confused) Skin: No rashes, No breakdown, Other (Left knee sutures intact) Assessment Assessment 1. Acute hypoxic respiratory failure secondary to combination of acute on chronic diastolic heart failure and pneumonia. 2. Acute on chronic diastolic heart failure: Improved with diuresis. 2D echo showed normal LV systolic function with EF 55% and diastolic dysfunction. 3. CAD s/p PCI/stent. Chest pain-free. Continue current secondary prevention measures. 4. Mild troponin elevation; highest 0.06. Most probably type II, demand ischemia. Consider ischemic evaluation outpatient. 5. Hypertensive urgency; better controlled 6. Hyperlipidemia; statin 7. Diabetes, II. treat per IM 8. Hypothyroidism; on replacement 9. PAFIB: brief bursts potentially associated with uncontrolled TONI and fever. No further episodes noted on telemetry. Consider event monitor as an outpatient. Plan Plan of Care Problems Medical Problems: (1) CHF exacerbation Status: Acute (2) Hyperkalemia Status: Acute (3) Person under investigation for COVID-19 Status: Acute Comment Review of Relevant I have reviewed the following items alexa (where applicable) has been applied. Labs Laboratory Tests Test 03/16/21 20:20 03/17/21 02:21 03/17/21 06:05 03/17/21 07:38 Glucose (Fingerstick) 411 mg/dL (70-99) 293 mg/dL (70-99) 200 mg/dL (70-99) White Blood Count 9.2 x10^3/uL (4.0-11.0) Red Blood Count 3.02 x10^6/uL (3.50-5.40) Hemoglobin 7.5 g/dL (12.0-15.5) Hematocrit 23.6 % (36.0-47.0) Mean Corpuscular Volume 78 fL (79-100) Mean Corpuscular Hemoglobin 25 pg (25-35) Mean Corpuscular Hemoglobin Concent 32 g/dL (31-37) Red Cell Distribution Width 17.8 % (11.5-14.5) Platelet Count 273 x10^3/uL (140-400) Neutrophils (%) (Auto) 71 % (31-73) Lymphocytes (%) (Auto) 18 % (24-48) Monocytes (%) (Auto) 9 % (0-9) Eosinophils (%) (Auto) 2 % (0-3) Basophils (%) (Auto) 1 % (0-3) Neutrophils # (Auto) 6.5 x10^3/uL (1.8-7.7) Lymphocytes # (Auto) 1.6 x10^3/uL (1.0-4.8) Monocytes # (Auto) 0.8 x10^3/uL (0.0-1.1) Eosinophils # (Auto) 0.2 x10^3/uL (0.0-0.7) Basophils # (Auto) 0.1 x10^3/uL (0.0-0.2) Sodium Level 142 mmol/L (136-145) Potassium Level 3.8 mmol/L (3.5-5.1) Chloride Level 102 mmol/L (98-107) Carbon Dioxide Level 31 mmol/L (21-32) Anion Gap 9 (6-14) Blood Urea Nitrogen 33 mg/dL (7-20) Creatinine 1.2 mg/dL (0.6-1.0) Estimated GFR (Cockcroft-Gault) 45.7 Glucose Level 228 mg/dL (70-99) Calcium Level 8.5 mg/dL (8.5-10.1) Iron Level 31 ug/dL (50-170) Total Iron Binding Capacity 233 ug/dL (250-450) Iron Saturation 13 % (15-34) Procalcitonin 0.72 ng/mL (0.00-0.10) Test 03/17/21 11:28 Glucose (Fingerstick) 254 mg/dL (70-99) Microbiology 03/15/21 Urine Culture - Final, Complete 03/14/21 Blood Culture - Preliminary, Resulted NO GROWTH AFTER 2 DAYS Medications Current Medications Insulin Glargine (Lantus Syringe) 25 unit QHS SQ Last administered on 03/16/21at 21:20; Start 03/16/21 at 21:00 Insulin Human Lispro (HumaLOG) 0-9 UNITS TIDWMEALS SQ Last administered on 03/17/21at 13:10; Start 03/17/21 at 08:00 Insulin Human Lispro (HumaLOG) 10 units TIDWMEALS SQ ; Start 03/17/21 at 08:00; Stop 03/17/21 at 07:47; Status DC Insulin Human Lispro (HumaLOG) 15 units 1X ONCE SQ Last administered on 03/16/21at 21:21; Start 03/16/21 at 21:00; Stop 03/16/21 at 21:02; Status DC Lactobacillus Rhamnosus (Culturelle) 1 cap BID PO Last administered on 03/17/21at 09:03; Start 03/16/21 at 21:00 Levofloxacin (Levaquin) 750 mg DAILY06 PO ; Start 03/17/21 at 15:30 Lorazepam (Ativan Inj) 0.5 mg 1X ONCE IVP Last administered on 03/17/21at 13 :23; Start 03/17/21 at 14:00; Stop 03/17/21 at 14:01; Status DC Olanzapine (ZyPREXA ZYDIS) 5 mg PRN BID PRN PO ANXIETY / AGITATION; Start 03/17/21 at 13:15 Vitals/I & O Vital Sign - Last 24 Hours 03/16/21 03/16/21 03/16/21 03/17/21 19:14 19:21 22:55 01:21 Temp 98.1 98.1 98.1 98.1 Pulse 69 71 Resp 19 19 20 B/P (MAP) 132/60 (84) 108/51 (70) Pulse Ox 98 97 O2 Delivery Nasal Cannula Nasal Cannula Nasal Cannula Nasal Cannula O2 Flow Rate 4.0 4.0 4.0 4.0 03/17/21 03/17/21 03/17/21 03/17/21 02:03 02:18 07:33 08:00 Temp 97.9 97.8 97.9 97.8 Pulse 67 66 Resp 18 19 19 B/P (MAP) 119/58 (78) 157/62 (93) Pulse Ox 95 96 O2 Delivery Nasal Cannula Nasal Cannula Nasal Cannula Nasal Cannula O2 Flow Rate 4.0 4.0 4.0 4.0 03/17/21 03/17/21 03/17/21 03/17/21 09:04 09:04 09:05 10:33 Temp 97.9 97.9 Pulse 66 66 66 65 Resp 19 B/P (MAP) 157/62 157/62 157/62 145/61 (89) Pulse Ox 96 O2 Delivery Nasal Cannula O2 Flow Rate 4.0 03/17/21 14:52 Temp 98.0 98.0 Pulse 65 Resp 19 B/P (MAP) 137/64 (88) Pulse Ox 96 O2 Delivery Nasal Cannula O2 Flow Rate 4.0 Intake and Output 03/16/21 03/16/21 03/17/21 15:00 23:00 07:00 Intake Total 75 ml 300 ml 700 ml Output Total 1275 ml Balance 75 ml -975 ml 700 ml GERARDO RUFFIN MD Mar 17, 2021 17:37
[2021-03-17 19:59] VITALS: BP 110/58
[2021-03-17] MEDS: SIMVASTATIN 40 MG TABLET. PO SCH (20:57)
[2021-03-17] MEDS: INSULIN GLARGINE SYRINGE. SQ SCH (21:02)
[2021-03-17 22:45] VITALS: BP 137/61
[2021-03-18] MEDS: traMADol 50 MG TABLET PO PRN (01:37)
[2021-03-18 03:19] VITALS: BP 137/61
[2021-03-18 05:46] LABS: BASO # 0.1 x10^3/uL (0.0-0.2); BASO % 1 % (0-3); EOS # 0.2 x10^3/uL (0.0-0.7); EOS % 3 % (0-3); HEMATOCRIT 24.7 % (36.0-47.0); HEMOGLOBIN 7.6 g/dL (12.0-15.5); LYMPH # 2.1 x10^3/uL (1.0-4.8); LYMPH % 24 % (24-48); MEAN CORPUSCULAR HEMOGLOBIN 24 pg (25-35); MEAN CORPUSCULAR HGB CONC 31 g/dL (31-37); MEAN CORPUSCULAR VOLUME 78 fL (79-100); MONO # 0.7 x10^3/uL (0.0-1.1); MONO % 8 % (0-9); NEUT # 5.6 x10^3/uL (1.8-7.7); NEUT % 64 % (31-73); PLATELET COUNT 305 x10^3/uL (140-400); RED BLOOD COUNT 3.16 x10^6/uL (3.50-5.40); RED CELL DISTRIBUTION WIDTH 17.3 % (11.5-14.5); WHITE BLOOD COUNT 8.7 x10^3/uL (4.0-11.0)
[2021-03-18 05:51] LABS: CALCIUM 8.5 mg/dL (8.5-10.1); CREATININE 1.2 mg/dL (0.6-1.0); GFR 45.7; MAGNESIUM 1.8 mg/dL (1.8-2.4)
[2021-03-18 07:00] VITALS: BP 164/71
[2021-03-18] MEDS: INSULIN LISPRO 300 UNITS/3 ML VIAL. SQ SCH ×4 (08:00→13:04)
[2021-03-18] MEDS: PANTOPRAZOLE 40 MG TABLET.DR. PO SCH (10:09)
[2021-03-18] MEDS: CLOPIDOGREL BISULFATE 75 MG TABLET PO SCH (10:09)
[2021-03-18] MEDS: hydroCHLOROthiazide 12.5 MG CAPSULE PO SCH (10:09)
[2021-03-18] MEDS: LEVOTHYROXINE 100 MCG TABLET PO SCH (10:10)
[2021-03-18] MEDS: LACTOBACILLUS RHAMNOSUS GG 1 CAPSULE. PO SCH (10:10)
[2021-03-18] MEDS: LOSARTAN POTASSIUM 50 MG TABLET. PO SCH (10:10)
[2021-03-18] MEDS: FUROSEMIDE 40 MG TABLET. PO SCH (10:10)
[2021-03-18] MEDS: ISOSORBIDE MONONITRATE ER 30 MG TAB.ER.24H PO SCH (10:10)
[2021-03-18] MEDS: ASPIRIN ENTERIC COATED 81 MG TABLET.DR. PO SCH (10:11)
[2021-03-18] MEDS: METOCLOPRAMIDE 5 MG TABLET. PO SCH (10:11)
[2021-03-18] MEDS: glipiZIDE ER 2.5 MG TAB.ER.24 PO SCH (10:11)
[2021-03-18] MEDS: CARVEDILOL 12.5 MG TABLET. PO SCH (10:11)
[2021-03-18 10:54] VITALS: BP 144/64
--- NOTE | 2021-03-18 11:27 | PDOC ---
[employer] PROGRESS NOTE Date of Service DOS: DATE: 03/18/21 TIME: 11:17 Chief Complaint Chief Complaint A/P: Acute hypoxic respiratory failure -multifactorial with acute CHF exacerbation and likely gram negative pneumonia as well will treat both. Needs repeat outpatient sleep study as well for untreated TONI. Acute diastolic CHF -will ney. Reconciled her home medications. Consult cardiology. Obtain [facility] records Acute encephalopathy - metabolic due to hypoxia, will monitor mental status Hyperkalemia -improved with IV Lasix dosing. Will monitor Anemia -likely of chronic disease, will check iron and B12 levels. No blood loss noted. Transaminitis -possibly congestive hepatopathy from acute CHF he notes no history of liver disease though she does note history of esophageal strictures and had balloon dilation years ago. CAD s/p SAM x1 - on antiplatelet. has cardiology f/u at [facility] Polyarthralgias - s/p knee replacements bilaterally, recovering from revision on left knee after fall at home TONI no longer on CPAP - stopped as she rolls around frequently but notes she is sleeping recliner would be more appropriate for repeat sleep study as she is obviously gaining benefit from being on BiPAP. 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 The shortness of breath has been progressive while she was at acute rehab in [place] after a left knee revision after a femoral fracture with a fall onto prosthetic left knee 5 weeks ago, repaired by Dr. Mendez at [facility]. She notes significant CANNON and orthopnea and noted she sleeps in her recliner for the past year. She notes she was released from [facility] on 03/13/2021 though she continues to say July 13, despite frequent correction and redirection, her does note it was 03/13/2021 Labs with ABG on 3 L nasal cannula 7.4 , CBC WBC 9.8 with left shift, Hb 8.6, platelets 330, NA 138, K5.6, BUN 28, CR 0.9, glucose 300, INR 1.4, D-dimer 2.55 lactic acid 1.6, troponin 0 3 8, albumin 2.7, bilirubin 2.4, AST 57, ALT 40, alkaline phosphatase 308. Chest radiograph with cardiomegaly and multifocal consolidation likely pulmonary edema. Given elevated D-dimer and severity of her symptoms she underwent CT chest abdomen pelvis with pulmonary edema again noted and overall soft tissue anasarca splenomegaly nondistended gallbladder. Given her the severity of her respiratory distress she was placed on BiPAP had Calderon catheter placed and was admitted to [facility] for further treatment of acute CHF. 03/16: Afebrile, currently breathing on baseline 4 L nasal cannula. 1200 mL fluid output yesterday, but net +80 mL overnight. Will continue to diurese and treat with empiric antibiotics. Echocardiogram pending. Will need to adjust insulin orders. 03/17: Afebrile. Procalcitonin elevated probably as a hepatic still. She is st ill little confused and anxious. Discussed with bedside needs repeat sleep study. And echocardiogram today. Glucose still in the 200s despite 25 units Lantus. 03/18: Afebrile, breathing 4 L nasal cannula. Blood sugar better controlled. Patient urinated on the floor this morning because unable to get up due to poor weightbearing status. PT recommending SNU; patient accepted to SNU and will discharge today. Continue treatment with Levaquin. Greater than 30 minutes spent managing the discharge of this patient. Vitals/I&O Vitals/I&O: Vital Signs Date Time Temp Pulse Resp B/P (MAP) Pulse Ox O2 Delivery O2 Flow Rate FiO2 03/18/21 10:54 98.5 73 20 144/64 (90) 94 Nasal Cannula 4.0 98.5 I & O 03/17/21 03/17/21 03/18/21 15:00 23:00 07:00 Intake Total 1000 ml 700 ml 600 ml Balance 1000 ml 700 ml 600 ml Physical Exam General: Alert, Cooperative, mild distress Heart: Regular rate Lungs: Crackles Abdomen: Normal bowel sounds, Soft, No tenderness, No masses Extremities: No clubbing, No cyanosis, Normal pulses, Other (Bilateral venous stasis dermatitis, 1+ edema) Skin: No rashes, No breakdown, Other (Left knee sutures intact) Labs Labs: Laboratory Tests Test 03/17/21 11:28 03/17/21 16:17 03/17/21 20:47 03/18/21 05:20 Glucose (Fingerstick) 254 mg/dL (70-99) 152 mg/dL (70-99) 172 mg/dL (70-99) White Blood Count 8.7 x10^3/uL (4.0-11.0) Red Blood Count 3.16 x10^6/uL (3.50-5.40) Hemoglobin 7.6 g/dL (12.0-15.5) Hematocrit 24.7 % (36.0-47.0) Mean Corpuscular Volume 78 fL (79-100) Mean Corpuscular Hemoglobin 24 pg (25-35) Mean Corpuscular Hemoglobin Concent 31 g/dL (31-37) Red Cell Distribution Width 17.3 % (11.5-14.5) Platelet Count 305 x10^3/uL (140-400) Neutrophils (%) (Auto) 64 % (31-73) Lymphocytes (%) (Auto) 24 % (24-48) Monocytes (%) (Auto) 8 % (0-9) Eosinophils (%) (Auto) 3 % (0-3) Basophils (%) (Auto) 1 % (0-3) Neutrophils # (Auto) 5.6 x10^3/uL (1.8-7.7) Lymphocytes # (Auto) 2.1 x10^3/uL (1.0-4.8) Monocytes # (Auto) 0.7 x10^3/uL (0.0-1.1) Eosinophils # (Auto) 0.2 x10^3/uL (0.0-0.7) Basophils # (Auto) 0.1 x10^3/uL (0.0-0.2) Sodium Level 144 mmol/L (136-145) Potassium Level 4.0 mmol/L (3.5-5.1) Chloride Level 105 mmol/L (98-107) Carbon Dioxide Level 33 mmol/L (21-32) Anion Gap 6 (6-14) Blood Urea Nitrogen 32 mg/dL (7-20) Creatinine 1.2 mg/dL (0.6-1.0) Estimated GFR (Cockcroft-Gault) 45.7 Glucose Level 74 mg/dL (70-99) Calcium Level 8.5 mg/dL (8.5-10.1) Magnesium Level 1.8 mg/dL (1.8-2.4) Test 03/18/21 08:10 Glucose (Fingerstick) 95 mg/dL (70-99) Assessment and Plan Assessmemt and Plan Problems Medical Problems: (1) CHF exacerbation Status: Acute (2) Hyperkalemia Status: Acute (3) Person under investigation for COVID-19 Status: Acute Comment Review of Relevant I have reviewed the following items alexa (where applicable) has been applied. Medications: Current Medications Medications (Trade) Dose Ordered Sig/Felisa Route PRN Reason Start Time Stop Time Status Last Admin Dose Admin Olanzapine (ZyPREXA ZYDIS) 5 mg PRN BID PRN PO ANXIETY / AGITATION 03/17/21 13:15 03/17/21 20:01 Lorazepam (Ativan Inj) 0.5 mg 1X ONCE IVP 03/17/21 14:00 03/17/21 14:01 DC 03/17/21 13:23 Levofloxacin (Levaquin) 750 mg DAILY06 PO 03/17/21 15:30 03/18/21 06:17 Justifications for Admission Other Justification MELBA LEON MD Mar 18, 2021 11:27
--- NOTE | 2021-03-18 12:16 | PDOC ---
BAM LYLE DE ICER 03/18/21 1216: CARDIO Progress Notes Date and Time Date of Service 03/18/2021 Time of Evaluation 1150 Subjective Subjective: No Chest Pain, No shortness of breath, No Palpitations Vitals Vitals Vital Signs Date Time Temp Pulse Resp B/P (MAP) Pulse Ox O2 Delivery O2 Flow Rate FiO2 03/18/21 10:54 98.5 73 20 144/64 (90) 94 Nasal Cannula 4.0 98.5 Weight Weight [ ] Input and Output Intake and Output Intake and Output 03/18/21 07:00 Intake Total 2300 ml Balance 2300 ml Intake Oral 2300 ml # Voids 4 Laboratory Labs Laboratory Tests Test 03/17/21 16:17 03/17/21 20:47 03/18/21 05:20 03/18/21 08:10 Glucose (Fingerstick) 152 mg/dL (70-99) 172 mg/dL (70-99) 95 mg/dL (70-99) White Blood Count 8.7 x10^3/uL (4.0-11.0) Red Blood Count 3.16 x10^6/uL (3.50-5.40) Hemoglobin 7.6 g/dL (12.0-15.5) Hematocrit 24.7 % (36.0-47.0) Mean Corpuscular Volume 78 fL (79-100) Mean Corpuscular Hemoglobin 24 pg (25-35) Mean Corpuscular Hemoglobin Concent 31 g/dL (31-37) Red Cell Distribution Width 17.3 % (11.5-14.5) Platelet Count 305 x10^3/uL (140-400) Neutrophils (%) (Auto) 64 % (31-73) Lymphocytes (%) (Auto) 24 % (24-48) Monocytes (%) (Auto) 8 % (0-9) Eosinophils (%) (Auto) 3 % (0-3) Basophils (%) (Auto) 1 % (0-3) Neutrophils # (Auto) 5.6 x10^3/uL (1.8-7.7) Lymphocytes # (Auto) 2.1 x10^3/uL (1.0-4.8) Monocytes # (Auto) 0.7 x10^3/uL (0.0-1.1) Eosinophils # (Auto) 0.2 x10^3/uL (0.0-0.7) Basophils # (Auto) 0.1 x10^3/uL (0.0-0.2) Sodium Level 144 mmol/L (136-145) Potassium Level 4.0 mmol/L (3.5-5.1) Chloride Level 105 mmol/L (98-107) Carbon Dioxide Level 33 mmol/L (21-32) Anion Gap 6 (6-14) Blood Urea Nitrogen 32 mg/dL (7-20) Creatinine 1.2 mg/dL (0.6-1.0) Estimated GFR (Cockcroft-Gault) 45.7 Glucose Level 74 mg/dL (70-99) Calcium Level 8.5 mg/dL (8.5-10.1) Magnesium Level 1.8 mg/dL (1.8-2.4) Microbiology Micro Microbiology 03/15/21 Urine Culture - Final, Complete 03/14/21 Blood Culture - Preliminary, Resulted NO GROWTH AFTER 3 DAYS Physical Exam HEENT: Neck Supple W Full Motion Chest: Symmetric LUNGS: Other (diminished) Heart: S1S2, RRR (SR) Abdomen: Other (obese) Extremities: Other (2+ bilateral LE edema) Neurology: alert, oriented, follow commands Assessment Assessment 1. Acute on chronic respiratory failure: better 2. Acute on chronic diastolic CHF: appears compensated 3. CAD s/p PCI/stent. Follows with [facility], clincally stable 4. Mild troponin elevation; highest 0.06. Most probably type II, demand ischemia 5. Hypertensive urgency; controlled 6. Hyperlipidemia; statin, HDL low but otherwise on goal 7. Diabetes, II. uncontrolled 8. Hypothyroidism; on replacement 9. Fevers: none further 10. PUI; rapid COVID negative 11. PAFIB: brief bursts potentially associated with uncontrolled TONI and fever. None further 12. TONI: noncompliant with CPAP last use 10 yrs ago will need to get retested. Recommendations 1. Pt has agreed with [facility]. [facility] prior to DC to note afib burden and further needs for anticoagulation. Follow up in office next month 2. Secondary prevention measures. Continue ASA 3. Lasix therapy 4. Will consider for outpt ischemic evaluation Justicifation of Admission Dx: Justifications for Admission: Justification of Admission Dx: Yes GERARDO RUFFIN MD 03/18/212034: CARDIO Progress Notes Assessment Assessment Patient seen and examined. Agree with SPRINKLER INSPECTOR's assessment and plan. Acute on chronic probably systolic HF better compensated 2D echo showed normal LV systolic function and diastolic dysfunction BP better controlled since admission CAD clinically stable Plan outpatient ischemic BAM Johnson APRN Mar 18, 2021 12:16 GERARDO RUFFIN MD Mar 18, 2021 20:35
--- NOTE | 2021-03-18 13:30 | PDOC3 ---
Discharge Summary Visit Information Date of Admission: Mar 15, 2021 Date of Discharge: Mar 18, 2021 Final Diagnosis Problems Medical Problems: (1) CHF exacerbation Status: Acute (2) Hyperkalemia Status: Acute (3) Person under investigation for COVID-19 Status: Acute Brief Hospital Course Allergies Allergies Coded Allergies Type Severity Reaction Last Updated Verified No Known Drug Allergies 03/14/21 No Vital Signs Vital Signs Date Time Temp Pulse Resp B/P (MAP) Pulse Ox O2 Delivery O2 Flow Rate FiO2 03/18/21 10:54 98.5 73 20 144/64 (90) 94 Nasal Cannula 4.0 98.5 Lab Results Laboratory Tests Test 03/16/21 17:08 03/16/21 20:20 03/17/21 02:21 03/17/21 06:05 Glucose (Fingerstick) 410 mg/dL (70-99) 411 mg/dL (70-99) 293 mg/dL (70-99) White Blood Count 9.2 x10^3/uL (4.0-11.0) Red Blood Count 3.02 x10^6/uL (3.50-5.40) Hemoglobin 7.5 g/dL (12.0-15.5) Hematocrit 23.6 % (36.0-47.0) Mean Corpuscular Volume 78 fL (79-100) Mean Corpuscular Hemoglobin 25 pg (25-35) Mean Corpuscular Hemoglobin Concent 32 g/dL (31-37) Red Cell Distribution Width 17.8 % (11.5-14.5) Platelet Count 273 x10^3/uL (140-400) Neutrophils (%) (Auto) 71 % (31-73) Lymphocytes (%) (Auto) 18 % (24-48) Monocytes (%) (Auto) 9 % (0-9) Eosinophils (%) (Auto) 2 % (0-3) Basophils (%) (Auto) 1 % (0-3) Neutrophils # (Auto) 6.5 x10^3/uL (1.8-7.7) Lymphocytes # (Auto) 1.6 x10^3/uL (1.0-4.8) Monocytes # (Auto) 0.8 x10^3/uL (0.0-1.1) Eosinophils # (Auto) 0.2 x10^3/uL (0.0-0.7) Basophils # (Auto) 0.1 x10^3/uL (0.0-0.2) Sodium Level 142 mmol/L (136-145) Potassium Level 3.8 mmol/L (3.5-5.1) Chloride Level 102 mmol/L (98-107) Carbon Dioxide Level 31 mmol/L (21-32) Anion Gap 9 (6-14) Blood Urea Nitrogen 33 mg/dL (7-20) Creatinine 1.2 mg/dL (0.6-1.0) Estimated GFR (Cockcroft-Gault) 45.7 Glucose Level 228 mg/dL (70-99) Calcium Level 8.5 mg/dL (8.5-10.1) Iron Level 31 ug/dL (50-170) Total Iron Binding Capacity 233 ug/dL (250-450) Iron Saturation 13 % (15-34) Procalcitonin 0.72 ng/mL (0.00-0.10) Test 03/17/21 07:38 03/17/21 11:28 03/17/21 16:17 03/17/21 20:47 Glucose (Fingerstick) 200 mg/dL (70-99) 254 mg/dL (70-99) 152 mg/dL (70-99) 172 mg/dL (70-99) Test 03/18/21 05:20 03/18/21 08:10 03/18/21 12:05 White Blood Count 8.7 x10^3/uL (4.0-11.0) Red Blood Count 3.16 x10^6/uL (3.50-5.40) Hemoglobin 7.6 g/dL (12.0-15.5) Hematocrit 24.7 % (36.0-47.0) Mean Corpuscular Volume 78 fL (79-100) Mean Corpuscular Hemoglobin 24 pg (25-35) Mean Corpuscular Hemoglobin Concent 31 g/dL (31-37) Red Cell Distribution Width 17.3 % (11.5-14.5) Platelet Count 305 x10^3/uL (140-400) Neutrophils (%) (Auto) 64 % (31-73) Lymphocytes (%) (Auto) 24 % (24-48) Monocytes (%) (Auto) 8 % (0-9) Eosinophils (%) (Auto) 3 % (0-3) Basophils (%) (Auto) 1 % (0-3) Neutrophils # (Auto) 5.6 x10^3/uL (1.8-7.7) Lymphocytes # (Auto) 2.1 x10^3/uL (1.0-4.8) Monocytes # (Auto) 0.7 x10^3/uL (0.0-1.1) Eosinophils # (Auto) 0.2 x10^3/uL (0.0-0.7) Basophils # (Auto) 0.1 x10^3/uL (0.0-0.2) Sodium Level 144 mmol/L (136-145) Potassium Level 4.0 mmol/L (3.5-5.1) Chloride Level 105 mmol/L (98-107) Carbon Dioxide Level 33 mmol/L (21-32) Anion Gap 6 (6-14) Blood Urea Nitrogen 32 mg/dL (7-20) Creatinine 1.2 mg/dL (0.6-1.0) Estimated GFR (Cockcroft-Gault) 45.7 Glucose Level 74 mg/dL (70-99) Calcium Level 8.5 mg/dL (8.5-10.1) Magnesium Level 1.8 mg/dL (1.8-2.4) Glucose (Fingerstick) 95 mg/dL (70-99) 145 mg/dL (70-99) Laboratory Tests Test 03/17/21 16:17 03/17/21 20:47 03/18/21 05:20 03/18/21 08:10 Glucose (Fingerstick) 152 mg/dL (70-99) 172 mg/dL (70-99) 95 mg/dL (70-99) White Blood Count 8.7 x10^3/uL (4.0-11.0) Red Blood Count 3.16 x10^6/uL (3.50-5.40) Hemoglobin 7.6 g/dL (12.0-15.5) Hematocrit 24.7 % (36.0-47.0) Mean Corpuscular Volume 78 fL (79-100) Mean Corpuscular Hemoglobin 24 pg (25-35) Mean Corpuscular Hemoglobin Concent 31 g/dL (31-37) Red Cell Distribution Width 17.3 % (11.5-14.5) Platelet Count 305 x10^3/uL (140-400) Neutrophils (%) (Auto) 64 % (31-73) Lymphocytes (%) (Auto) 24 % (24-48) Monocytes (%) (Auto) 8 % (0-9) Eosinophils (%) (Auto) 3 % (0-3) Basophils (%) (Auto) 1 % (0-3) Neutrophils # (Auto) 5.6 x10^3/uL (1.8-7.7) Lymphocytes # (Auto) 2.1 x10^3/uL (1.0-4.8) Monocytes # (Auto) 0.7 x10^3/uL (0.0-1.1) Eosinophils # (Auto) 0.2 x10^3/uL (0.0-0.7) Basophils # (Auto) 0.1 x10^3/uL (0.0-0.2) Sodium Level 144 mmol/L (136-145) Potassium Level 4.0 mmol/L (3.5-5.1) Chloride Level 105 mmol/L (98-107) Carbon Dioxide Level 33 mmol/L (21-32) Anion Gap 6 (6-14) Blood Urea Nitrogen 32 mg/dL (7-20) Creatinine 1.2 mg/dL (0.6-1.0) Estimated GFR (Cockcroft-Gault) 45.7 Glucose Level 74 mg/dL (70-99) Calcium Level 8.5 mg/dL (8.5-10.1) Magnesium Level 1.8 mg/dL (1.8-2.4) Test 03/18/21 12:05 Glucose (Fingerstick) 145 mg/dL (70-99) Brief Hospital Course Ms. Diaz is a 60 old female who presented with acute hypoxic respiratory failure, acute diastolic CHF exacerbation, and community-acquired pneumonia (possibly gram-negative, possibly gram-positive). She was treated with diuresis and antibiotics with improvement. Patient was recommended SNU, and when accepted she was discharged with oral Levaquin treatment complete antibiotic treatment. She had echocardiogram that showed normal left ventricular systolic function, EF 55%, normal LV segmental wall motion, PAP 52 mmHg. Discharge Information Condition at Discharge: Improved Disposition/Orders: D/C to Another Facility Scheduled Carvedilol (Coreg) 25 Mg Tablet, 25 MG PO BIDWMEALS for CARDIAC for 30 Days, #60 Ref 11 Prescribed by: GERARD FRYE MD on 03/15/211430 Last Action: Converted on 03/15/211434 by GERARD FRYE MD Clopidogrel Bisulfate (Clopidogrel) 75 Mg Tablet, 1 TAB PO DAILY for CAD for 30 Days, #30 Ref 11 Prescribed by: GERARD FRYE MD on 03/15/211430 Last Action: Continued on 03/15/211434 by GERARD FRYE MD Furosemide (Furosemide) 40 Mg Tablet, 1 TAB PO DAILY for CHF for 30 Days, #30 Ref 11 Prescribed by: GERARD FRYE MD on 03/15/211430 Last Action: Continued on 03/15/211434 by GERARD FRYE MD Glipizide (Glipizide Xl) 10 Mg Tab.er.24, 1 TAB PO DAILY for DM2 for 30 Days, #30 Ref 11 Prescribed by: GERARD FRYE MD on 03/15/211430 Last Action: Converted on 03/16/211209 by MELBA LEON MD Isosorbide Mononitrate (Isosorbide Mononitrate Er) 30 Mg Tab.er.24h, 1 TAB PO DAILY for CHF for 30 Days, #30 Ref 11 Prescribed by: GERARD FRYE MD on 03/15/211430 Last Action: Continued on 03/15/211434 by GERARD FRYE MD Levothyroxine Sodium (Levothyroxine Sodium) 100 Mcg Tablet, 1 TAB PO DAILY07 for Hypothyroidism/Graves for 30 Days, #30 Ref 11 Prescribed by: GERARD FRYE MD on 03/15/211430 Last Action: Continued on 03/15/211434 by GERARD FRYE MD Losartan/Hydrochlorothiazide (Losartan-Hctz 50-12.5 Mg Tab) 1 Each Tablet, 1 TAB PO DAILY for HTN/CHF for 30 Days, #30 Ref 11 Prescribed by: GERRAD FRYE MD on 03/15/211430 Last Action: Converted on 03/15/211434 by GERARD FRYE MD Metformin Hcl (Metformin Hcl) 1,000 Mg Tablet, 1,000 MG PO BIDWMEALS for DM2 for 30 Days, #60 Ref 11 Prescribed by: GERARD FRYE MD on 03/15/211430 Last Action: New Order on 03/15/211430 by GERARD FRYE MD Metoclopramide Hcl (Reglan) 5 Mg Tablet, 5 MG PO BIDAC for Gastroparesis for 30 Days, #60 Ref 11 Prescribed by: GERARD FRYE MD on 03/15/211430 Last Action: Continued on 03/15/211434 by GERARD FRYE MD Pantoprazole Sodium (Protonix ) 40 Mg Tablet.dr, 40 MG PO BIDAC for GERD for 30 Days, #60 Ref 11 Prescribed by: GERARD FRYE MD on 03/15/211430 Last Action: Continued on 03/15/211434 by GERARD FRYE MD Potassium Chloride (Klor-Con M20) 20 Meq Tab.er.prt, 1 TAB PO DAILY for Hypokalemia for 30 Days, #30 Ref 11 Prescribed by: GERARD FRYE MD on 03/15/211430 Last Action: New Order on 03/15/211430 by GERARD FRYE MD Simvastatin (Simvastatin) 80 Mg Tablet, 1 TAB PO QHS for HLD/CHF for 30 Days, #30 Ref 11 Prescribed by: GERARD FRYE MD on 03/15/211430 Last Action: Converted on 03/15/211434 by GERARD FRYE MD Scheduled PRN Benzonatate (Tessalon Perle) 100 Mg Capsule, 200 MG PO PRN Q6HRS PRN for COUGH for 30 Days, #120 Prescribed by: GERARD FRYE MD on 03/15/211430 Last Action: New Order on 03/15/211430 by GERARD FRYE MD Tramadol Hcl (Tramadol Hcl) 50 Mg Tablet, 50 MG PO PRN Q6HRS PRN for PAIN for 6 Days, #24 Prescribed by: GERARD FRYE MD on 03/15/211431 Last Action: New Order on 03/15/211431 by GERARD FRYE MD Justicifation of Admission Dx: Justifications for Admission: Justification of Admission Dx: Yes MELBA LEON MD Mar 18, 2021 13:30
[2021-03-18] MEDS ORDERED: LEVO750T5 PO (13:37)
--- NOTE | 2021-03-18 13:38 | SNU/HH DC ---
DISCHARGE ORDERS DISCHARGE INFORMATION: DISCHARGE DATE: Mar 18, 2021 FINAL DIAGNOSIS Problems Medical Problems: (1) CHF exacerbation Status: Acute (2) Hyperkalemia Status: Acute (3) Person under investigation for COVID-19 Status: Acute CONDITION ON DISCHARGE: Stable CODE STATUS: Code Status: Full [facility]CI: SNF STAY <30 DAYS: Yes POST DISCHARGE ORDERS: ACTIVITY ORDERS: Activity as tolerated WEIGHT BEARING STATUS: As tolerated DIET AFTER DISCHARGE: ADA CHECKS AFTER DISCHARGE: CHECKS AFTER DISCHARGE: Check blood press - daily, Check blood sugar, ac/hs TREATMENT/EQUIPMENT ORDERS: RESPIRATORY EQUIPMENT NEEDED: CPAP, BiPAP Physical Therapy For: Evalulation/Treatment Occupational Therapy For: Evaluation/Treatment DISCHARGE MEDICATIONS: Home Meds Active Scripts Levofloxacin (LEVOFLOXACIN) 750 Mg Tablet, 750 MG PO DAILY06 for CAP for 3 Days, #3 TAB Prov:MELBA LEON MD 03/18/21 Benzonatate (TESSALON PERLE) 100 Mg Capsule, 200 MG PO PRN Q6HRS PRN for COUGH for 30 Days, #120 CAP Prov:GERARD FRYE MD 03/15/21 Tramadol Hcl (TRAMADOL HCL) 50 Mg Tablet, 50 MG PO PRN Q6HRS PRN for PAIN for 6 Days, #24 TAB Prov:GERARD FRYE MD 03/15/21 Potassium Chloride (KLOR-CON M20) 20 Meq Tab.er.prt, 1 TAB PO DAILY for Hypokalemia for 30 Days, #30 TAB 11 Refills Prov:GERARD FRYE MD 03/15/21 Glipizide (GLIPIZIDE XL) 10 Mg Tab.er.24, 1 TAB PO DAILY for DM2 for 30 Days, #30 TAB 11 Refills Prov:GERARD FRYE MD 03/15/21 Metformin Hcl (METFORMIN HCL) 1,000 Mg Tablet, 1000 MG PO BIDWMEALS for DM2 for 30 Days, #60 TAB 11 Refills Prov:GERARD FRYE MD 03/15/21 Metoclopramide Hcl (REGLAN) 5 Mg Tablet, 5 MG PO BIDAC for Gastroparesis for 30 Days, #60 TAB 11 Refills Prov:GERARD FRYE MD 03/15/21 Pantoprazole Sodium (PROTONIX ) 40 Mg Tablet.dr, 40 MG PO BIDAC for GERD for 30 Days, #60 TAB 11 Refills Prov:GERARD FRYE MD 03/15/21 Simvastatin (SIMVASTATIN) 80 Mg Tablet, 1 TAB PO QHS for HLD/CHF for 30 Days, #30 TAB 11 Refills Prov:GERARD FRYE MD 03/15/21 Furosemide (FUROSEMIDE) 40 Mg Tablet, 1 TAB PO DAILY for CHF for 30 Days, #30 TAB 11 Refills Prov:GERARD FRYE MD 03/15/21 Levothyroxine Sodium (LEVOTHYROXINE SODIUM) 100 Mcg Tablet, 1 TAB PO DAILY07 for Hypothyroidism/Graves for 30 Days, #30 TAB 11 Refills Prov:GERARD FRYE MD 03/15/21 Clopidogrel Bisulfate (CLOPIDOGREL) 75 Mg Tablet, 1 TAB PO DAILY for CAD for 30 Days, #30 TAB 11 Refills Prov:GERARD FRYE MD 03/15/21 Losartan/Hydrochlorothiazide (LOSARTAN-HCTZ 50-12.5 MG TAB) 1 Each Tablet, 1 TAB PO DAILY for HTN/CHF for 30 Days, #30 TAB 11 Refills Prov:GERARD FRYE MD 03/15/21 Isosorbide Mononitrate (ISOSORBIDE MONONITRATE ER) 30 Mg Tab.er.24h, 1 TAB PO DAILY for CHF for 30 Days, #30 TAB 11 Refills Prov:GERARD FRYE MD 03/15/21 Carvedilol (COREG) 25 Mg Tablet, 25 MG PO BIDWMEALS for CARDIAC for 30 Days, #60 TAB 11 Refills Prov:GERARD FRYE MD 03/15/21 MELBA LEON MD Mar 18, 2021 13:38
--- NOTE | 2021-03-18 13:50 | NUR ---
SS following up with discharge planning. SS reviewed pt chart and discussed with pt RN. Pt is currently requiring oxygen at four liters nasal canula. COVID19 negative. PT/OT recommended snf unit. Pt accepted at [facility], ; fax [phone]. Insurance authorization received. Discharge orders received and phoned and faxed to [facility]. Pt will discharge today and go to [facility] between 1630 and 1700. [facility] to provide transportation. Pt, pt's RN, and pt's spouse notified.
--- NOTE | 2021-03-18 19:12 | NUR ---
Discharge Note: GARFIELD BRIDGES [facility] Discharge instructions and discharge home medications reviewed with Other facility and a copy given. All questions have been answered and understanding verbalized.
== END 2021-03-18 19:13 | DRG 177 ==
LOC: ER 18:51 → 2 SOUTH 21:28
PROVIDERS: ADMIT Internal Medicine; ATTEND Internal Medicine
PROC: 5A09357 Assistance with Respiratory Ventilation, Less than 24 Consecutive Hours, Continuous Positive Airway Pressure (ICD-10-PCS; principal; 2021-03-14)
PROC: 5A09357 Assistance with Respiratory Ventilation, Less than 24 Consecutive Hours, Continuous Positive Airway Pressure (ICD-10-PCS; 2021-03-17)
DX: J15.6 Pneumonia due to other Gram-negative bacteria (principal); J96.21 Acute and chronic respiratory failure with hypoxia; E43 Unspecified severe protein-calorie malnutrition; G93.41 Metabolic encephalopathy; I50.43 Acute on chronic combined systolic (congestive) and diastolic (congestive) heart failure; I24.8 Other forms of acute ischemic heart disease; J44.0 Chronic obstructive pulmonary disease with (acute) lower respiratory infection; Z68.43 Body mass index [BMI] 50.0-59.9, adult; D63.8 Anemia in other chronic diseases classified elsewhere; E03.9 Hypothyroidism, unspecified; E11.43 Type 2 diabetes mellitus with diabetic autonomic (poly)neuropathy; E66.01 Morbid (severe) obesity due to excess calories; E78.00 Pure hypercholesterolemia, unspecified; E78.5 Hyperlipidemia, unspecified; E87.5 Hyperkalemia; E87.6 Hypokalemia; F41.0 Panic disorder [episodic paroxysmal anxiety]; G47.33 Obstructive sleep apnea (adult) (pediatric); I11.0 Hypertensive heart disease with heart failure; I16.0 Hypertensive urgency; I25.10 Atherosclerotic heart disease of native coronary artery without angina pectoris; I27.81 Cor pulmonale (chronic); I48.0 Paroxysmal atrial fibrillation; K21.9 Gastro-esophageal reflux disease without esophagitis; Z20.822 Contact with and (suspected) exposure to COVID-19; Z79.02 Long term (current) use of antithrombotics/antiplatelets; Z79.84 Long term (current) use of oral hypoglycemic drugs; Z79.899 Other long term (current) drug therapy; Z82.49 Family history of ischemic heart disease and other diseases of the circulatory system; Z91.19 Patient's noncompliance with other medical treatment and regimen; Z95.5 Presence of coronary angioplasty implant and graft; Z96.611 Presence of right artificial shoulder joint; Z96.653 Presence of artificial knee joint, bilateral; M19.90 Unspecified osteoarthritis, unspecified site; R74.01 Elevation of levels of liver transaminase levels
CPT/HCPCS: 36415; 36600; 71045; 71275; 74174; 80048; 80053; 80061; 80076; 81001; 82010; 82805; 82962; 83540; 83550; 83605; 83735; 83880; 84145; 84484; 85025; 85379; 85610; 87040; 87086; 93005; 93306; 94660; 96365; 96375; J1650; J1815; J1940; J2060; J2543; Q9967; U0003; U0005; 97530-GO; 97530-GP; 97535-GO; 99285-25; G0378

== ENCOUNTER 2021-08-03 12:17 | Inpatient (IN) | payer MEDICARE ==
[~2021-08-03] VITALS: Ht 162.6 cm; Wt 119.0 kg
[~2021-08-03 12:17] MED LIST: BENZ100C PO; CARV25TA PO; CLOP75TA PO; FURO40TA4 PO; GLIP-26 PO; ISOS30TA68 PO; LEVO100T5 PO; LEVO750T5 PO; LOSA1TAB19 PO; METF10007 PO; METO5TAB55 PO; PANT40TA77 PO; POTA-121 PO; SIMV80TA17 PO; TRAM50TA PO
--- NOTE | 2021-08-03 13:46 | PHYS DOC ---
Past Medical History Smoking Status: Unknown if ever smoked General Adult EDM: Chief Complaint: URINARY FREQUENCY HPI: HPI: Patient is a 60 year old female who presents with sent here by her primary care physician to be checked for urosepsis as patient has been having urinary frequency and incontinence for the last couple of months. Patient states she is also has new onset cellulitis with blisters to the right ford and he has been doctoring the left ford cellulitis and excoriation himself at home. He states they were having wound care come out to the house with a have not been coming for the last month and a half. Patient has not been out of the house since April per the . Patient denies abdominal pain, nausea, vomiting, diarrhea, fever, cough, chest pain, shortness of air, headache, dizziness. Patient has a history of CHF, hypertension, diabetes, GERD, high cholesterol, hypothyroidism, falls, anemia, cardiac cath, shingles, femur fracture, knee surgery, foot surgery, eye surgery, COPD, sleep apnea, generalized weakness. Review of Systems: Review of Systems: Constitutional: Denies fever or chills. [] Eyes: Denies change in visual acuity. [] HENT: Denies nasal congestion or sore throat. [] Respiratory: Denies cough or shortness of breath. [] Cardiovascular: Denies chest pain or edema. [] GI: Denies abdominal pain, nausea, vomiting, bloody stools or diarrhea. [] : Denies dysuria. +Urinary frequency[] Musculoskeletal: Denies back pain or joint pain. [] Integument: Denies rash. +bilateral lower leg wounds[] Neurologic: Denies headache, focal weakness or sensory changes. [] Endocrine: Denies polyuria or polydipsia. [] Lymphatic: Denies swollen glands. [] Psychiatric: Denies depression or anxiety. [] Heart Score: C/O Chest Pain: No Allergies: Allergies: Allergies Coded Allergies Type Severity Reaction Last Updated Verified No Known Drug Allergies 03/14/21 No Physical Exam: PE: Constitutional: Well developed, well nourished, no acute distress, non-toxic appearance. [] HENT: Normocephalic, atraumatic, bilateral external ears normal, oropharynx moist, no oral exudates, nose normal. [] Eyes: PERRLA, EOMI, conjunctiva normal, no discharge. [] Neck: Normal range of motion, no tenderness, supple, no stridor. [] Cardiovascular:Heart rate regular rhythm, no murmur [] Lungs & Thorax: Bilateral breath sounds clear to auscultation [] Abdomen: Bowel sounds normal, soft, no tenderness, no masses, no pulsatile masses. [] Skin: Warm, dry, no erythema, no rash. Right ford cellulitis with open blisters drainging, Left lower leg cellulitis with excoriation[] Back: No tenderness, no CVA tenderness. [] Extremities: No tenderness, no cyanosis, no clubbing, ROM intact, Bilateral lower extremity 2+ edema. [] Neurologic: Alert and oriented X 3, normal motor function, normal sensory function, no focal deficits noted. [] Psychologic: Affect normal, judgement normal, mood normal. [] EKG: EK reported by Dr. Andrade is sinus rhythm no STEMI. Radiology/Procedures: Radiology/Procedures: [] Impression: [facility] [address] [place] [address] IMAGING REPORT Signed PATIENT: GARFIELD BRIDGES LACCOUNT: [id number] : 1960 LOCATION: ER AGE: 60 SEX: F EXAM STATUS: REG ER ORD. PHYSICIAN: LUIS ARMANDO FORBES APRN REASON: wounds PROCEDURE: TIBIA FIBULA BILAT EXAM: Bilateral tibias and fibulas, 2 views. HISTORY: Wounds. COMPARISON: None. FINDINGS: 2 views of both tibias and fibulas are obtained. There is no fracture, dislocation or subluxation. There is no lytic or sclerotic osseous lesion or erosion. There is no periosteal reaction. There is a left knee arthroplasty in expected vision. There is internal fixation of the distal left femur are within intramedullary filiberto and screws. This traverses a suspected healing distal femoral metaphyseal fracture, not completely included on the [id number]. There is mild left greater than right tibiotalar joint osteoarthritis. There are vascular calcifications. There is mild medial compartment joint space narrowing and spurring involving the right knee. IMPRESSION: 1. No acute osseous finding. 2. Left knee arthroplasty and internal fixation of a distal left femur fracture, not completely assessed on this exam. 3. Mild medial compartment osteoarthritis of the right knee and mild bilateral tibiotalar joint osteoarthritis. Electronically signed by: Oriana Nails MD (08/03/2021 2:46 PM) [id number] DICTATED and SIGNED BY: ORIANA NAILS MD DATE: 08/03/21 [id number] Course & Med Decision Making: Course & Med Decision Making Pertinent Labs and Imaging studies reviewed. (See chart for details) See HPI. Alert and oriented x4. Ambulatory with a steady gait. Speaks in full clear sentences. Right lower ford cellulitis with open draining blisters. Left lower leg ford cellulitis with excoriation. Left dorsal foot ulcer that is chronic. Bilateral lower extremity 2+ swelling. Skin pink warm and dry. Abdomen soft and nontender. Urinalysis shows infection. Patient's white count is only slightly elevated. Does not meet SIRS criteria. Troponin is slightly bumped but it is actually less than what it has been running in the past. Her creatinine and BUN are also slightly bumped more than is usual but is still right around where she stays. Hemoglobin is at 8. She also has a history of anemia. X-rays of bilateral legs show arthritis and no osteomyelitis. Patient admitted to Dr. Jett. [] Jose Elias Disclaimer: Jose Elias Disclaimer: This electronic medical record was generated, in whole or in part, using a voice recognition dictation system. Departure Departure Impression: Primary Impression: Diabetic foot ulcer Additional Impressions: Cellulitis UTI (urinary tract infection) Disposition: ADMITTED INPATIENT Admitting Physician: HIMUsha Condition: STABLE Referrals: FRANCIS JUÁREZ (PCP) LUIS ARMANDO FORBES APRN Aug 03, 2021 13:46
[2021-08-03 14:25] LABS: BASO % 0 % (0-3); EOS # 0.2 x10^3/uL (0.0-0.7); EOS % 2 % (0-3); HEMATOCRIT 25.9 % (36.0-47.0); LYMPH % 18 % (24-48); MEAN CORPUSCULAR HEMOGLOBIN 22 pg (25-35); MEAN CORPUSCULAR HGB CONC 31 g/dL (31-37); MEAN CORPUSCULAR VOLUME 70 fL (79-100); MONO # 0.9 x10^3/uL (0.0-1.1); MONO % 8 % (0-9); NEUT # 8.1 x10^3/uL (1.8-7.7); NEUT % 72 % (31-73); PLATELET COUNT 496 x10^3/uL (140-400); RED BLOOD COUNT 3.72 x10^6/uL (3.50-5.40); RED CELL DISTRIBUTION WIDTH 20.4 % (11.5-14.5); WHITE BLOOD COUNT 11.3 x10^3/uL (4.0-11.0)
[2021-08-03 14:28] LABS: BILIRUBIN,URINE NEGATIVE (NEG); CLARITY,URINE TURBID; COLOR,URINE YELLOW; NITRITE,URINE NEGATIVE (NEG); PROTEIN,URINE 30 mg/dL (NEG-TRACE); UROBILINOGEN,URINE 0.2 mg/dL (0.2 mg/dL)
[2021-08-03 14:38] LABS: CALCIUM 8.8 mg/dL (8.5-10.1); CREATININE 1.5 mg/dL (0.6-1.0); GFR 35.3; POTASSIUM 5.1 mmol/L (3.5-5.1)
[2021-08-03 14:42] LABS: BACTERIA,URINE MANY /HPF (0-FEW); RBC,URINE FIELD OBSCURED /HPF (0-2); WBC,URINE TNTC /HPF (0-4)
[2021-08-03 14:43] LABS: YEAST,URINE PRESENT /HPF
[2021-08-03 14:44] LABS: ALBUMIN 2.3 g/dL (3.4-5.0); ALBUMIN/GLOBULIN RATIO 0.4 (1.0-1.7); TOTAL BILIRUBIN 0.9 mg/dL (0.2-1.0); TOTAL PROTEIN 8.1 g/dL (6.4-8.2)
--- NOTE | 2021-08-03 14:49 | RAD ---
EXAM: Bilateral tibias and fibulas, 2 views. HISTORY: Wounds. COMPARISON: None. FINDINGS: 2 views of both tibias and fibulas are obtained. There is no fracture, dislocation or sublu xation. There is no lytic or sclerotic osseous lesion or erosion. There is no periosteal reaction. Th ere is a left knee arthroplasty in expected vision. There is internal fixation of the distal left fem ur are within intramedullary filiberto and screws. This traverses a suspected healing distal femoral metaph yseal fracture, not completely included on the [id number]. There is mild left greater than right t ibiotalar joint osteoarthritis. There are vascular calcifications. There is mild medial compartment j oint space narrowing and spurring involving the right knee. IMPRESSION: 1. No acute osseous finding. 2. Left knee arthroplasty and internal fixation of a distal left femur fracture, not completely asses sed on this exam. 3. Mild medial compartment osteoarthritis of the right knee and mild bilateral tibiotalar joint osteo arthritis. Electronically signed by: Oriana Ruggiero MD (08/03/2021 2:46 PM) [id number]
[2021-08-03 15:24] LABS: ANISOCYTOSIS MOD; HYPOCHROMIA MOD; MICROCYTOSIS MARKED; PLT ESTIMATE INCREASED (ADEQUATE); POLYCHROMASIA SLIGHT
[2021-08-03] MEDS ORDERED: VANCOMYCIN PER PHARMACY MC PRN (15:45)
[2021-08-03] MEDS ORDERED: cefTRIAXone IV Push 1 GM VIAL. IVP ONE (15:45)
[2021-08-03] MEDS ORDERED: VANCOMYCIN 2 GM in IV NORMAL SALINE 500ML BAG 500 ML IV ONE (16:00)
[2021-08-03] MEDS ORDERED: MAGNESIUM HYDROXIDE 2,400 MG/30 ML ORAL.SUSP. PO PRN (16:15)
[2021-08-03] MEDS ORDERED: MAG HYDROX/ALUMINUM HYD/SIMETH 30 ML ORAL.SUSP PO PRN (16:15)
[2021-08-03] MEDS ORDERED: DEXTROSE 50% 25 GM / 50ML DISP.SYRIN. IV PRN (16:15)
[2021-08-03] MEDS ORDERED: CALCIUM CARBONATE 500 MG TAB.CHEW PO PRN (16:15)
[2021-08-03] MEDS ORDERED: hydrALAZINE 20 MG/ML VIAL. IVP PRN (16:30)
--- NOTE | 2021-08-03 16:36 | PDOC1 ---
History and Physical Date of Admission Date of Admission DATE: 08/03/21 TIME: 16:20 Identification/Chief Complaint Chief Complaint Bilateral leg cellulitis Source Source: Patient History of Present Illness History of Present Illness Patient 60-year-old female with past medical history DM2, who presents to the ED at the behest of her new PCP for evaluation of bilateral leg cellulitis and UTI. She reports urinary frequency and incontinence over the past several months. She has chronic lymphedema to bilateral lower extremities and has been managing this at home with regular wrappings. Previously they were having wound care come to the house, but they have not been coming for the past several months. Patient has not been out of the house since April, per her . She was at her first appointment with her new PCP Dr. Cristina, when she was sent to the ED for further evaluation of lower extremity cellulitis and concerns for urosepsis. Previously she has been treated for left lower extremity cellulitis, but has not had antibiotics in over 2 months. Recently she began to develop right lower extremity erythema as well. Labs on admission showed WBC 11.3, hemoglobin 8.0, hematocrit 25.9, sodium 130, BUN 36, creatinine 1.5, troponin 0. 029, CBG 430, lactic acid 2.0. No concerns for sepsis in the ED, but due to extensive erythema she received Rocephin 1 g. Will admit patient for further medical management. Past Medical History Cardiovascular: CAD, CHF, HTN, Hyperlipidemia Pulmonary: COPD CENTRAL NERVOUS SYSTEM: Periperal neuropathy Heme/Onc: No pertinent hx Hepatobiliary: No pertinent hx Musculoskeletal: Osteoarthritis Renal/: No pertinent hx Endocrine: Diabetes Past Surgical History Past Surgical History: Total knee replacement Family History Family History: High Cholestrol, Hypertension Social History Smoke: No ALCOHOL: none Drugs: None Current Problem List Problem List Problems Medical Problems: (1) Cellulitis Status: Acute (2) Diabetic foot ulcer Status: Acute (3) UTI (urinary tract infection) Status: Acute Current Medications Current Medications Current Medications Vancomycin HCl (Vanco Per Pharmacy) 1 each PRN DAILY PRN MC SEE COMMENTS; Start 08/03/21 at 15:45; Status UNV Ceftriaxone Sodium (Rocephin) 1 gm 1X ONCE IVP Last administered on 08/03/21at 16:00; Start 08/03/21 at 15:45; Stop 08/03/21 at 15:46; Status DC Vancomycin HCl 2 gm/Sodium Chloride 500 ml @ 250 mls/hr 1X ONCE IV Last administered on 08/03/21at 16:01; Start 08/03/21 at 16:00; Stop 08/03/21 at 17:59 Active Scripts Active Levofloxacin 750 Mg Tablet 750 Mg PO DAILY06 3 Days Tessalon Perle (Benzonatate) 100 Mg Capsule 200 Mg PO PRN Q6HRS PRN 30 Days Tramadol Hcl 50 Mg Tablet 50 Mg PO PRN Q6HRS PRN 6 Days Klor-Con M20 (Potassium Chloride) 20 Meq Tab.er.prt 1 Tab PO DAILY 30 Days Glipizide Xl (Glipizide) 10 Mg Tab.er.24 1 Tab PO DAILY 30 Days Metformin Hcl 1,000 Mg Tablet 1,000 Mg PO BIDWMEALS 30 Days Reglan (Metoclopramide Hcl) 5 Mg Tablet 5 Mg PO BIDAC 30 Days Protonix (Pantoprazole Sodium) 40 Mg Tablet.dr 40 Mg PO BIDAC 30 Days Simvastatin 80 Mg Tablet 1 Tab PO QHS 30 Days Furosemide 40 Mg Tablet 1 Tab PO DAILY 30 Days Levothyroxine Sodium 100 Mcg Tablet 1 Tab PO DAILY07 30 Days Clopidogrel (Clopidogrel Bisulfate) 75 Mg Tablet 1 Tab PO DAILY 30 Days Losartan-Hctz 50-12.5 Mg Tab (Losartan/Hydrochlorothiazide) 1 Each Tablet 1 Tab PO DAILY 30 Days Isosorbide Mononitrate Er (Isosorbide Mononitrate) 30 Mg Tab.er.24h 1 Tab PO DAILY 30 Days Coreg (Carvedilol) 25 Mg Tablet 25 Mg PO BIDWMEALS 30 Days Allergies Allergies: Coded Allergies: No Known Drug Allergies (Unverified , 03/14/21) ROS Review of System GENERAL: No history of weight change, weakness or fevers. SKIN: No bruising, hair changes or rashes. EYES: No blurred, double or loss of vision. NOSE AND THROAT: No history of nosebleeds, hoarseness or sore throat. HEART: Denies chest pain, denies palpitations. LUNGS: Denies cough, hemoptysis, wheezing or shortness of breath. GASTROINTESTINAL: Denies nausea, vomiting, abdominal pain. GENITOURINARY: Urinary frequency and urgency. Denies dysuria or hematuria. NEUROLOGIC: Denies history of numbness, tingling, tremor or weakness. PSYCHIATRIC: Denies anxiety, denies depression. ENDOCRINE: No history of heat or cold intolerance, polyuria or polydipsia. EXTREMITIES: Bilateral lower extremity erythema. Denies muscle weakness, joint pain, pain on walking or stiffness. Physical Exam Physical Exam General: Alert, Oriented X3, Cooperative, No acute distress. Morbidly obese. HEENT: PERRLA, EOMI Lungs: Decreased breath sounds bilaterally, normal air movement Heart: RRR, no murmurs Cardiovascular: S1, S2 Abdomen: Normal bowel sounds, Soft, No tenderness. Obese abdomen. Extremities: 3+ edema bilateral lower extremities. No clubbing, No cyanosis Skin: ~15 cm area of erythema to right lower extremity, ~12 cm area of erythema to left lower extremity. Left lower extremity area of erythema is actively weeping clear yellow fluid. No rashes. Neuro: Normal speech, Normal tone, Sensation intact Psych/Mental Status: Mental status NL, Mood NL Vitals Vitals Vital Signs Date Time Temp Pulse Resp B/P (MAP) Pulse Ox O2 Delivery O2 Flow Rate FiO2 08/03/21 13:42 98.6 78 18 145/75 (98) 99 Room Air 98.6 Labs Labs Laboratory Tests Test 08/03/21 13:43 08/03/21 14:12 Urine Collection Type U cath Urine Color Yellow Urine Clarity Turbid Urine pH 5.0 (<5.0-8.0) Urine Specific [place] 1.010 (1.000-1.030) Urine Protein 30 mg/dL (NEG-TRACE) Urine Glucose (UA) 250 mg/dL (NEG) Urine Ketones (Stick) Negative mg/dL (NEG) Urine Blood Large (NEG) Urine Nitrite Negative (NEG) Urine Bilirubin Negative (NEG) Urine Urobilinogen Dipstick 0.2 mg/dL (0.2 mg/dL) Urine Leukocyte Esterase Large (NEG) Urine RBC Field obscured /HPF (0-2) Urine WBC Tntc /HPF (0-4) Urine Bacteria Many /HPF (0-FEW) Urine Yeast Present /HPF White Blood Count 11.3 x10^3/uL (4.0-11.0) Red Blood Count 3.72 x10^6/uL (3.50-5.40) Hemoglobin 8.0 g/dL (12.0-15.5) Hematocrit 25.9 % (36.0-47.0) Mean Corpuscular Volume 70 fL (79-100) Mean Corpuscular Hemoglobin 22 pg (25-35) Mean Corpuscular Hemoglobin Concent 31 g/dL (31-37) Red Cell Distribution Width 20.4 % (11.5-14.5) Platelet Count 496 x10^3/uL (140-400) Neutrophils (%) (Auto) 72 % (31-73) Lymphocytes (%) (Auto) 18 % (24-48) Monocytes (%) (Auto) 8 % (0-9) Eosinophils (%) (Auto) 2 % (0-3) Basophils (%) (Auto) 0 % (0-3) Neutrophils # (Auto) 8.1 x10^3/uL (1.8-7.7) Lymphocytes # (Auto) 2.0 x10^3/uL (1.0-4.8) Monocytes # (Auto) 0.9 x10^3/uL (0.0-1.1) Eosinophils # (Auto) 0.2 x10^3/uL (0.0-0.7) Basophils # (Auto) 0.0 x10^3/uL (0.0-0.2) Platelet Estimate Increased (ADEQUATE) Polychromasia Slight Hypochromasia Mod Anisocytosis Mod Microcytosis Marked Sodium Level 130 mmol/L (136-145) Potassium Level 5.1 mmol/L (3.5-5.1) Chloride Level 94 mmol/L (98-107) Carbon Dioxide Level 26 mmol/L (21-32) Anion Gap 10 (6-14) Blood Urea Nitrogen 36 mg/dL (7-20) Creatinine 1.5 mg/dL (0.6-1.0) Estimated GFR (Cockcroft-Gault) 35.3 BUN/Creatinine Ratio 24 (6-20) Glucose Level 430 mg/dL (70-99) Lactic Acid Level 2.0 mmol/L (0.4-2.0) Calcium Level 8.8 mg/dL (8.5-10.1) Magnesium Level 2.0 mg/dL (1.8-2.4) Total Bilirubin 0.9 mg/dL (0.2-1.0) Aspartate Amino Transf (AST/SGOT) 9 U/L (15-37) Alanine Aminotransferase (ALT/SGPT) 21 U/L (14-59) Alkaline Phosphatase 125 U/L (46-116) Troponin I Quantitative 0.029 ng/mL (0.000-0.055) Total Protein 8.1 g/dL (6.4-8.2) Albumin 2.3 g/dL (3.4-5.0) Albumin/Globulin Ratio 0.4 (1.0-1.7) Laboratory Tests Test 08/03/21 13:43 08/03/21 14:12 Urine Collection Type U cath Urine Color Yellow Urine Clarity Turbid Urine pH 5.0 (<5.0-8.0) Urine Specific [place] 1.010 (1.000-1.030) Urine Protein 30 mg/dL (NEG-TRACE) Urine Glucose (UA) 250 mg/dL (NEG) Urine Ketones (Stick) Negative mg/dL (NEG) Urine Blood Large (NEG) Urine Nitrite Negative (NEG) Urine Bilirubin Negative (NEG) Urine Urobilinogen Dipstick 0.2 mg/dL (0.2 mg/dL) Urine Leukocyte Esterase Large (NEG) Urine RBC Field obscured /HPF (0-2) Urine WBC Tntc /HPF (0-4) Urine Bacteria Many /HPF (0-FEW) Urine Yeast Present /HPF White Blood Count 11.3 x10^3/uL (4.0-11.0) Red Blood Count 3.72 x10^6/uL (3.50-5.40) Hemoglobin 8.0 g/dL (12.0-15.5) Hematocrit 25.9 % (36.0-47.0) Mean Corpuscular Volume 70 fL (79-100) Mean Corpuscular Hemoglobin 22 pg (25-35) Mean Corpuscular Hemoglobin Concent 31 g/dL (31-37) Red Cell Distribution Width 20.4 % (11.5-14.5) Platelet Count 496 x10^3/uL (140-400) Neutrophils (%) (Auto) 72 % (31-73) Lymphocytes (%) (Auto) 18 % (24-48) Monocytes (%) (Auto) 8 % (0-9) Eosinophils (%) (Auto) 2 % (0-3) Basophils (%) (Auto) 0 % (0-3) Neutrophils # (Auto) 8.1 x10^3/uL (1.8-7.7) Lymphocytes # (Auto) 2.0 x10^3/uL (1.0-4.8) Monocytes # (Auto) 0.9 x10^3/uL (0.0-1.1) Eosinophils # (Auto) 0.2 x10^3/uL (0.0-0.7) Basophils # (Auto) 0.0 x10^3/uL (0.0-0.2) Platelet Estimate Increased (ADEQUATE) Polychromasia Slight Hypochromasia Mod Anisocytosis Mod Microcytosis Marked Sodium Level 130 mmol/L (136-145) Potassium Level 5.1 mmol/L (3.5-5.1) Chloride Level 94 mmol/L (98-107) Carbon Dioxide Level 26 mmol/L (21-32) Anion Gap 10 (6-14) Blood Urea Nitrogen 36 mg/dL (7-20) Creatinine 1.5 mg/dL (0.6-1.0) Estimated GFR (Cockcroft-Gault) 35.3 BUN/Creatinine Ratio 24 (6-20) Glucose Level 430 mg/dL (70-99) Lactic Acid Level 2.0 mmol/L (0.4-2.0) Calcium Level 8.8 mg/dL (8.5-10.1) Magnesium Level 2.0 mg/dL (1.8-2.4) Total Bilirubin 0.9 mg/dL (0.2-1.0) Aspartate Amino Transf (AST/SGOT) 9 U/L (15-37) Alanine Aminotransferase (ALT/SGPT) 21 U/L (14-59) Alkaline Phosphatase 125 U/L (46-116) Troponin I Quantitative 0.029 ng/mL (0.000-0.055) Total Protein 8.1 g/dL (6.4-8.2) Albumin 2.3 g/dL (3.4-5.0) Albumin/Globulin Ratio 0.4 (1.0-1.7) Images Images [facility] [address] [place], [place] [id number] IMAGING REPORT Signed PATIENT: GARFIELD BRIDGES LACCOUNT: [id number] : 1960 LOCATION: ER AGE: 60 SEX: F EXAM STATUS: REG ER ORD. PHYSICIAN: LUIS ARMANDO FORBES APRN REASON: wounds PROCEDURE: TIBIA FIBULA BILAT EXAM: Bilateral tibias and fibulas, 2 views. HISTORY: Wounds. COMPARISON: None. FINDINGS: 2 views of both tibias and fibulas are obtained. There is no fracture, dislocation or subluxation. There is no lytic or sclerotic osseous lesion or erosion. There is no periosteal reaction. There is a left knee arthroplasty in e xpected vision. There is internal fixation of the distal left femur are within intramedullary filiberto and screws. This traverses a suspected healing distal femoral metaphyseal fracture, not completely included on the [id number]. There is mild left greater than right tibiotalar joint osteoarthritis. There are vascular calcifications. There is mild medial compartment joint space narrowing and spurring involving the right knee. IMPRESSION: 1. No acute osseous finding. 2. Left knee arthroplasty and internal fixation of a distal left femur fracture, not completely assessed on this exam. 3. Mild medial compartment osteoarthritis of the right knee and mild bilateral tibiotalar joint osteoarthritis. VTE Prophylaxis Ordered VTE Prophylaxis Devices: No VTE Pharmacological Prophylaxi: Yes Assessment/Plan Assessment/Plan Bilateral lower extremity cellulitis DM2 with hyperglycemia Acute cystitis KERI due to vasomotor nephropathy Normocytic anemia Hypothyroidism Gastroparesis CAD Diastolic CHF Severe malnutrition Morbid obesity Plan: Continue treatment of bilateral lower extremity cellulitis with cefazolin 1 g every 8 Left lower extremity actively weeping clear yellow fluid. Wound cultures were obtained in the ED; will follow for cultures and sensitivity. Antibiotics should also cover for acute cystitis Consultation placed to lymphedema nurse. Discussed leg elevations and that she would likely benefit from regular leg wrappings. Basal/prandial insulin. Hemoglobin A1c pending. Monitor hemoglobin and kidney function. We will plan judicious fluids due to history of diastolic CHF Resume home medications FEN - ADA/Cardiac diet PPX - Heparin FULL CODE Dispo - inpatient for above Patient names her (Maged Bridges) as surrogate decision-maker Justifications for Admission General Conditions Other justification for admit: Bilateral lower extremity cellulitis, UTI, DM2 with hyperglycemia Other Justification MELBA LEON MD Aug 03, 2021 16:36
[2021-08-03] MEDS ORDERED: IV NORMAL SALINE 1000ML BAG 1,000 ML IV ONE (16:45)
--- NOTE | 2021-08-03 17:28 | EKG ---
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
[2021-08-03 18:04] VITALS: BP 172/70
[2021-08-03] MEDS ORDERED: INSULIN LISPRO 300 UNITS/3 ML VIAL. SQ ONE (18:30)
[2021-08-03] MEDS: METOCLOPRAMIDE 5 MG TABLET. PO SCH (19:12)
[2021-08-03] MEDS: PANTOPRAZOLE 40 MG TABLET.DR. PO SCH (19:12)
[2021-08-03] MEDS: CARVEDILOL 12.5 MG TABLET. PO SCH (19:12)
[2021-08-03] MEDS: INSULIN LISPRO 300 UNITS/3 ML VIAL. SQ SCH (19:18)
[2021-08-03 19:49] VITALS: BP 140/87
[2021-08-03] MEDS: SIMVASTATIN 40 MG TABLET. PO SCH (19:54)
[2021-08-03] MEDS: traMADol 50 MG TABLET PO PRN (19:54)
[2021-08-03] MEDS: ceFAZolin SODIUM IV Push 1 GM VIAL. IVP SCH (20:13)
[2021-08-03] MEDS: ZOLPIDEM 5 MG TABLET. PO PRN (20:16)
[2021-08-03] MEDS: INSULIN GLARGINE SYRINGE. SQ SCH (20:25)
[2021-08-03] MEDS: HEPARIN for SUB-Q USE 5,000 UNIT/ML VIAL. SQ SCH (20:25)
[2021-08-03] MEDS ORDERED: INSULIN REGULAR 100 UNIT/ML 3ML VIAL. IV ONE (20:45)
[2021-08-03 23:03] VITALS: BP 142/64
[2021-08-04] VITALS (10 sets, daily range): BP systolic 104–133; BP diastolic 45–81
[2021-08-04] MEDS: ceFAZolin SODIUM IV Push 1 GM VIAL. IVP SCH (04:59)
[2021-08-04] MEDS: METOCLOPRAMIDE 5 MG TABLET. PO SCH ×2 (04:59→17:31)
[2021-08-04] MEDS: PANTOPRAZOLE 40 MG TABLET.DR. PO SCH ×2 (04:59→17:31)
[2021-08-04 05:02] LABS: BASO # 0.1 x10^3/uL (0.0-0.2); BASO % 1 % (0-3); EOS # 0.2 x10^3/uL (0.0-0.7); EOS % 2 % (0-3); LYMPH # 1.6 x10^3/uL (1.0-4.8); LYMPH % 14 % (24-48); MEAN CORPUSCULAR HEMOGLOBIN 21 pg (25-35); MEAN CORPUSCULAR HGB CONC 31 g/dL (31-37); MEAN CORPUSCULAR VOLUME 69 fL (79-100); MONO # 0.9 x10^3/uL (0.0-1.1); MONO % 8 % (0-9); NEUT # 8.4 x10^3/uL (1.8-7.7); NEUT % 76 % (31-73); PLATELET COUNT 389 x10^3/uL (140-400); RED BLOOD COUNT 3.04 x10^6/uL (3.50-5.40); RED CELL DISTRIBUTION WIDTH 20.1 % (11.5-14.5); WHITE BLOOD COUNT 11.1 x10^3/uL (4.0-11.0)
[2021-08-04 05:03] LABS: HEMOGLOBIN 6.5 g/dL (12.0-15.5)
[2021-08-04 05:07] LABS: CALCIUM 8.2 mg/dL (8.5-10.1); CREATININE 1.5 mg/dL (0.6-1.0); GFR 35.3; POTASSIUM 5.1 mmol/L (3.5-5.1)
[2021-08-04] MEDS: LEVOTHYROXINE 100 MCG TABLET PO SCH (05:07)
[2021-08-04] MEDS: HEPARIN for SUB-Q USE 5,000 UNIT/ML VIAL. SQ SCH ×3 (05:09→22:00)
[2021-08-04] MEDS: glipiZIDE ER 2.5 MG TAB.ER.24 PO SCH (08:56)
[2021-08-04] MEDS: CLOPIDOGREL BISULFATE 75 MG TABLET PO SCH (08:56)
[2021-08-04] MEDS: POTASSIUM CHLORIDE 20 MEQ TABLET.ER. PO SCH (09:00)
[2021-08-04] MEDS: FUROSEMIDE 40 MG TABLET. PO SCH (09:00)
[2021-08-04] MEDS: INSULIN LISPRO 300 UNITS/3 ML VIAL. SQ SCH ×3 (09:04→17:00)
--- NOTE | 2021-08-04 09:44 | PDOC ---
[employer] PROGRESS NOTE Date of Service DOS: DATE: 08/04/21 TIME: 09:40 Chief Complaint Chief Complaint Bilateral lower extremity cellulitis DM2 with hyperglycemia Acute cystitis KERI due to vasomotor nephropathy Normocytic anemia Hypothyroidism Gastroparesis CAD Diastolic CHF Severe malnutrition Morbid obesity Plan: Continue treatment of bilateral lower extremity cellulitis with cefazolin 1 g every 8 Left lower extremity actively weeping clear yellow fluid. Wound cultures were obtained in the ED; will follow for cultures and sensitivity. Antibiotics should also cover for acute cystitis Consultation placed to lymphedema nurse. Discussed leg elevations and that she would likely benefit from regular leg wrappings. Basal/prandial insulin. Hemoglobin A1c pending. Monitor hemoglobin and kidney function. We will plan judicious fluids due to history of diastolic CHF Resume home medications FEN - ADA/Cardiac diet PPX - Heparin FULL CODE Dispo - inpatient for above Patient names her (Maged Diaz) as surrogate decision-maker History of Present Illness History of Present Illness Patient 60-year-old female with past medical history DM2, who presents to the ED at the behest of her new PCP for evaluation of bilateral leg cellulitis and UTI. She reports urinary frequency and incontinence over the past several months. She has chronic lymphedema to bilateral lower extremities and has been managing this at home with regular wrappings. Previously they were having wound care come to the house, but they have not been coming for the past several months. Patient has not been out of the house since April, per her . She was at her first appointment with her new PCP Dr. Cristina, when she was sent to the ED for further evaluation of lower extremity cellulitis and concerns for urosepsis. Previously she has been treated for left lower extremity cellulitis, but has not had antibiotics in over 2 months. Recently she began to develop right lower extremity erythema as well. Labs on admission showed WBC 11.3, hemoglobin 8.0, hematocrit 25.9, sodium 130, BUN 36, creatinine 1.5, troponin 0.029, CBG 430, lactic acid 2.0. No concerns for sepsis in the ED, but due to extensive erythema she received Rocephin 1 g. Will admit patient for further medical management. 08/04: Afebrile, breathing 4 L nasal cannula. Denies any pain in her lower extremities. Hemoglobin A1c 11.0, CBGs in the mid 200s. Hemoglobin 6.5 today; will provide 1 unit PRBC. Will also initiate oral ferrous sulfate for maintenance. Initial Gram stain showed gram-negative rods and gram-positive cocci. Will change antibiotic to Zosyn. Vitals/I&O Vitals/I&O: Vital Signs Date Time Temp Pulse Resp B/P (MAP) Pulse Ox O2 Delivery O2 Flow Rate FiO2 08/04/21 07:20 98.0 69 18 104/81 (89) 95 Nasal Cannula 4.0 98.0 I & O 08/03/21 08/03/21 08/04/21 15:00 23:00 07:00 Intake Total 500 ml 200 ml Output Total 800 ml Balance 500 ml -600 ml Physical Exam General: Alert, Cooperative, No acute distress Heart: Regular rate Lungs: Clear, Crackles Abdomen: Soft, No tenderness Extremities: No clubbing, No cyanosis Skin: Other (Bilateral lower extremities wrapped and bandaged with dressings clean/dry/intact) Labs Labs: Laboratory Tests Test 08/03/21 13:43 08/03/21 14:12 08/03/21 18:12 08/03/21 20:18 Urine Collection Type U cath Urine Color Yellow Urine Clarity Turbid Urine pH 5.0 (<5.0-8.0) Urine Specific Dennis 1.010 (1.000-1.030) Urine Protein 30 mg/dL (NEG-TRACE) Urine Glucose (UA) 250 mg/dL (NEG) Urine Ketones (Stick) Negative mg/dL (NEG) Urine Blood Large (NEG) Urine Nitrite Negative (NEG) Urine Bilirubin Negative (NEG) Urine Urobilinogen Dipstick 0.2 mg/dL (0.2 mg/dL) Urine Leukocyte Esterase Large (NEG) Urine RBC Field obscured /HPF (0-2) Urine WBC Tntc /HPF (0-4) Urine Bacteria Many /HPF (0-FEW) Urine Yeast Present /HPF White Blood Count 11.3 x10^3/uL (4.0-11.0) Red Blood Count 3.72 x10^6/uL (3.50-5.40) Hemoglobin 8.0 g/dL (12.0-15.5) Hematocrit 25.9 % (36.0-47.0) Mean Corpuscular Volume 70 fL (79-100) Mean Corpuscular Hemoglobin 22 pg (25-35) Mean Corpuscular Hemoglobin Concent 31 g/dL (31-37) Red Cell Distribution Width 20.4 % (11.5-14.5) Platelet Count 496 x10^3/uL (140-400) Neutrophils (%) (Auto) 72 % (31-73) Lymphocytes (%) (Auto) 18 % (24-48) Monocytes (%) (Auto) 8 % (0-9) Eosinophils (%) (Auto) 2 % (0-3) Basophils (%) (Auto) 0 % (0-3) Neutrophils # (Auto) 8.1 x10^3/uL (1.8-7.7) Lymphocytes # (Auto) 2.0 x10^3/uL (1.0-4.8) Monocytes # (Auto) 0.9 x10^3/uL (0.0-1.1) Eosinophils # (Auto) 0.2 x10^3/uL (0.0-0.7) Basophils # (Auto) 0.0 x10^3/uL (0.0-0.2) Platelet Estimate Increased (ADEQUATE) Polychromasia Slight Hypochromasia Mod Anisocytosis Mod Microcytosis Marked Sodium Level 130 mmol/L (136-145) Potassium Level 5.1 mmol/L (3.5-5.1) Chloride Level 94 mmol/L (98-107) Carbon Dioxide Level 26 mmol/L (21-32) Anion Gap 10 (6-14) Blood Urea Nitrogen 36 mg/dL (7-20) Creatinine 1.5 mg/dL (0.6-1.0) Estimated GFR (Cockcroft-Gault) 35.3 BUN/Creatinine Ratio 24 (6-20) Glucose Level 430 mg/dL (70-99) Hemoglobin A1c 11.0 % (4.8-5.6) Lactic Acid Level 2.0 mmol/L (0.4-2.0) Calcium Level 8.8 mg/dL (8.5-10.1) Magnesium Level 2.0 mg/dL (1.8-2.4) Total Bilirubin 0.9 mg/dL (0.2-1.0) Aspartate Amino Transf (AST/SGOT) 9 U/L (15-37) Alanine Aminotransferase (ALT/SGPT) 21 U/L (14-59) Alkaline Phosphatase 125 U/L (46-116) Troponin I Quantitative 0.029 ng/mL (0.000-0.055) Total Protein 8.1 g/dL (6.4-8.2) Albumin 2.3 g/dL (3.4-5.0) Albumin/Globulin Ratio 0.4 (1.0-1.7) Glucose (Fingerstick) 425 mg/dL (70-99) 428 mg/dL (70-99) Test 08/04/21 03:45 08/04/21 06:59 White Blood Count 11.1 x10^3/uL (4.0-11.0) Red Blood Count 3.04 x10^6/uL (3.50-5.40) Hemoglobin 6.5 g/dL (12.0-15.5) Hematocrit 21.0 % (36.0-47.0) Mean Corpuscular Volume 69 fL (79-100) Mean Corpuscular Hemoglobin 21 pg (25-35) Mean Corpuscular Hemoglobin Concent 31 g/dL (31-37) Red Cell Distribution Width 20.1 % (11.5-14.5) Platelet Count 389 x10^3/uL (140-400) Neutrophils (%) (Auto) 76 % (31-73) Lymphocytes (%) (Auto) 14 % (24-48) Monocytes (%) (Auto) 8 % (0-9) Eosinophils (%) (Auto) 2 % (0-3) Basophils (%) (Auto) 1 % (0-3) Neutrophils # (Auto) 8.4 x10^3/uL (1.8-7.7) Lymphocytes # (Auto) 1.6 x10^3/uL (1.0-4.8) Monocytes # (Auto) 0.9 x10^3/uL (0.0-1.1) Eosinophils # (Auto) 0.2 x10^3/uL (0.0-0.7) Basophils # (Auto) 0.1 x10^3/uL (0.0-0.2) Sodium Level 132 mmol/L (136-145) Potassium Level 5.1 mmol/L (3.5-5.1) Chloride Level 100 mmol/L (98-107) Carbon Dioxide Level 26 mmol/L (21-32) Anion Gap 6 (6-14) Blood Urea Nitrogen 37 mg/dL (7-20) Creatinine 1.5 mg/dL (0.6-1.0) Estimated GFR (Cockcroft-Gault) 35.3 Glucose Level 256 mg/dL (70-99) Calcium Level 8.2 mg/dL (8.5-10.1) Glucose (Fingerstick) 245 mg/dL (70-99) Assessment and Plan Assessmemt and Plan Problems Medical Problems: (1) Cellulitis Status: Acute (2) Diabetic foot ulcer Status: Acute (3) UTI (urinary tract infection) Status: Acute Comment Review of Relevant I have reviewed the following items alexa (where applicable) has been applied. Medications: Current Medications Medications (Trade) Dose Ordered Sig/Felisa Route PRN Reason Start Time Stop Time Status Last Admin Dose Admin Ceftriaxone Sodium (Rocephin) 1 gm 1X ONCE IVP 08/03/21 15:45 08/03/21 15:46 DC 08/03/21 16:00 Vancomycin HCl 2 gm/Sodium Chloride 500 ml @ 250 mls/hr 1X ONCE IV 08/03/21 16:00 08/03/21 17:59 DC 08/03/21 16:01 Clopidogrel Bisulfate (Plavix) 75 mg DAILY PO 08/04/21 09:00 08/04/21 08:56 Levothyroxine Sodium (Synthroid) 100 mcg DAILY07 PO 08/04/21 07:00 08/04/21 05:07 Metoclopramide HCl (Reglan) 5 mg BIDAC PO 08/03/21 16:30 08/04/21 04:59 Pantoprazole Sodium (Protonix) 40 mg BIDAC PO 08/03/21 16:30 08/04/21 04:59 Tramadol HCl (Ultram) 50 mg PRN Q6HRS PRN PO MILD PAIN 1-3, 1ST CHOICE 08/03/21 16:15 08/03/21 19:54 Carvedilol (Coreg) 25 mg BIDWMEALS PO 08/03/21 17:00 08/03/21 19:12 Glipizide (Glucotrol Er) 10 mg DAILY08 PO 08/04/21 08:00 08/04/21 08:56 Simvastatin (Zocor) 80 mg QHS PO 08/03/21 21:00 08/03/21 19:54 Insulin Glargine (Lantus Syringe) 30 unit QHS SQ 08/03/21 21:00 08/03/21 20:25 Insulin Human Lispro (HumaLOG) 8 units TIDWMEALS SQ 08/03/21 17:00 08/04/21 09:04 Cefazolin Sodium (Ancef) 1 gm Q8HRS IVP 08/03/21 22:00 08/04/21 04:59 Zolpidem Tartrate (Ambien) 5 mg PRN QHS PRN PO INSOMNIA, MAY REPEAT IN 1HR 08/03/21 16:15 08/03/21 20:16 Heparin Sodium (Porcine) (Heparin Sodium) 5,000 unit Q8HRS SQ 08/03/21 22:00 08/04/21 05:09 Sodium Chloride 1,000 ml @ 100 mls/hr 1X ONCE IV 08/03/21 16:45 08/04/21 02:44 DC 08/03/21 19:40 Insulin Human Lispro (HumaLOG) 12 units 1X ONCE SQ 08/03/21 18:30 08/03/21 18:33 DC 08/03/21 19:18 Insulin Human Regular (HumuLIN R VIAL) 10 unit 1X ONCE IV 08/03/21 20:45 08/03/21 20:46 DC 08/03/21 20:58 Justifications for Admission General Conditions Other justification for admit: Bilateral lower extremity cellulitis, UTI, DM2 with hyperglycemia Other Justification MELBA LEON MD Aug 04, 2021 09:43
[2021-08-04] MEDS ORDERED: PIP/TAZO PER PHARMACY MC PRN (11:45)
[2021-08-04] MEDS: ISOSORBIDE MONONITRATE ER 30 MG TAB.ER.24H PO SCH (12:54)
[2021-08-04] MEDS: hydroCHLOROthiazide 12.5 MG CAPSULE PO SCH (12:55)
[2021-08-04] MEDS: LOSARTAN POTASSIUM 50 MG TABLET. PO SCH (12:55)
[2021-08-04] MEDS: CARVEDILOL 12.5 MG TABLET. PO SCH ×2 (12:56→17:32)
[2021-08-04] MEDS: PIPERACILLIN/TAZOBACTAM 3.375 GM in IV NORMAL SALINE 50ML 50 ML IV SCH ×2 (13:32→17:32)
--- NOTE | 2021-08-04 15:30 | NUR ---
Wound Care Wound Type/Assessment: Pt seen for wound care consultation re: buttock and leg wounds. Pt has bilateral LE cellulitis with ulcerations and weeping, bright red, edematous, no fluctuance noted. Pt also has R buttock pressure ulcers, proximal ulcer Stage II and distal a Stage III, with coccyx maceration and breakdown from a combination of moisture and pressure. Pannus and breast folds reddened with Intertrigo, areas cleaned and dry, stoma powder applied. Treatment Recommendations/Plan: BLE:Xeroform gauze, ABDs and kerlix, change daily until drainage slows, then every other day. R buttock/coccyx: Stoma powder to reddened coccyx skin, Honey alginate to buttock ulcers, then all covered with Aquacel foam, change every 3 days and PRN. Education provided: to pt re: leg elevation, pressure ulcer offloading and frequent repositioning Offloading surface/device: wheelchair cushion ordered for pt Recommended Referrals/Tests: n/a Discharge Recommendations for dressings: see treatment plan above
[2021-08-04] MEDS: ONDANSETRON PF 4 MG/2 ML VIAL. IVP PRN (19:12)
[2021-08-04] MEDS: SIMVASTATIN 40 MG TABLET. PO SCH (19:50)
[2021-08-04] MEDS: ZOLPIDEM 5 MG TABLET. PO PRN (19:50)
[2021-08-04] MEDS: traMADol 50 MG TABLET PO PRN (19:50)
[2021-08-04] MEDS: LACTOBACILLUS RHAMNOSUS GG 1 CAPSULE. PO SCH (19:50)
[2021-08-04] MEDS: INSULIN GLARGINE SYRINGE. SQ SCH (20:05)
[2021-08-04] MEDS ORDERED: INSULIN LISPRO 300 UNITS/3 ML VIAL. SQ SCH (20:15)
[2021-08-05] MEDS: PIPERACILLIN/TAZOBACTAM 3.375 GM in IV NORMAL SALINE 50ML 50 ML IV SCH ×3 (00:05→11:10)
[2021-08-05 03:00] VITALS: BP 134/64
[2021-08-05] MEDS: METOCLOPRAMIDE 5 MG TABLET. PO SCH ×2 (05:43→15:28)
[2021-08-05] MEDS: PANTOPRAZOLE 40 MG TABLET.DR. PO SCH ×2 (05:43→15:28)
[2021-08-05] MEDS: LEVOTHYROXINE 100 MCG TABLET PO SCH (05:43)
[2021-08-05] MEDS: HEPARIN for SUB-Q USE 5,000 UNIT/ML VIAL. SQ SCH ×3 (05:45→20:33)
[2021-08-05 07:00] VITALS: BP 115/56
[2021-08-05 07:29] LABS: BASO # 0.1 x10^3/uL (0.0-0.2); BASO % 1 % (0-3); EOS # 0.2 x10^3/uL (0.0-0.7); EOS % 3 % (0-3); HEMATOCRIT 23.3 % (36.0-47.0); HEMOGLOBIN 7.1 g/dL (12.0-15.5); LYMPH # 1.8 x10^3/uL (1.0-4.8); LYMPH % 23 % (24-48); MEAN CORPUSCULAR HEMOGLOBIN 22 pg (25-35); MEAN CORPUSCULAR HGB CONC 31 g/dL (31-37); MEAN CORPUSCULAR VOLUME 71 fL (79-100); MONO # 0.7 x10^3/uL (0.0-1.1); MONO % 9 % (0-9); NEUT # 5.3 x10^3/uL (1.8-7.7); NEUT % 65 % (31-73); PLATELET COUNT 367 x10^3/uL (140-400); RED BLOOD COUNT 3.29 x10^6/uL (3.50-5.40); RED CELL DISTRIBUTION WIDTH 21.3 % (11.5-14.5); WHITE BLOOD COUNT 8.2 x10^3/uL (4.0-11.0)
[2021-08-05 07:57] LABS: CALCIUM 8.5 mg/dL (8.5-10.1); GFR 25.3; POTASSIUM 5.1 mmol/L (3.5-5.1)
[2021-08-05] MEDS: glipiZIDE ER 2.5 MG TAB.ER.24 PO SCH (09:10)
[2021-08-05] MEDS: CARVEDILOL 12.5 MG TABLET. PO SCH ×2 (09:10→15:29)
[2021-08-05] MEDS: hydroCHLOROthiazide 12.5 MG CAPSULE PO SCH (09:11)
[2021-08-05] MEDS: LOSARTAN POTASSIUM 50 MG TABLET. PO SCH (09:11)
[2021-08-05] MEDS: CLOPIDOGREL BISULFATE 75 MG TABLET PO SCH (09:11)
[2021-08-05] MEDS: LACTOBACILLUS RHAMNOSUS GG 1 CAPSULE. PO SCH ×2 (09:11→19:40)
[2021-08-05] MEDS: POTASSIUM CHLORIDE 20 MEQ TABLET.ER. PO SCH (09:11)
[2021-08-05] MEDS: FUROSEMIDE 40 MG TABLET. PO SCH (09:11)
[2021-08-05] MEDS: FERROUS SULFATE 325 MG TABLET. PO SCH (09:11)
[2021-08-05] MEDS: ISOSORBIDE MONONITRATE ER 30 MG TAB.ER.24H PO SCH (09:11)
[2021-08-05] MEDS: NYSTATIN TOPICAL POWDER 15GM BOTTLE. TP SCH ×2 (09:12→19:41)
[2021-08-05] MEDS: traMADol 50 MG TABLET PO PRN ×2 (09:12→19:40)
[2021-08-05] MEDS: INSULIN LISPRO 300 UNITS/3 ML VIAL. SQ SCH ×3 (09:17→17:00)
[2021-08-05] MEDS ORDERED: NITR0.4T22 SL (10:30)
[2021-08-05] MEDS ORDERED: CYAN50009 PO (10:30)
[2021-08-05] MEDS ORDERED: INSU100I13 SQ (10:30)
[2021-08-05] MEDS ORDERED: ERGO500089 PO (10:30)
[2021-08-05] MEDS ORDERED: FAMC500T3 PO (10:30)
[2021-08-05] MEDS ORDERED: INSU100V37 SQ (10:30)
[2021-08-05 11:00] VITALS: BP 121/55
[2021-08-05] MEDS: HYDROcodone/APAP 5/325MG 1 TAB TABLET PO PRN (11:09)
[2021-08-05 15:03] VITALS: BP 128/63
--- NOTE | 2021-08-05 15:07 | PDOC ---
[facility] PROGRESS NOTE Date of Service DOS: DATE: 08/05/21 TIME: 14:54 Chief Complaint Chief Complaint Bilateral lower extremity cellulitis DM2 with hyperglycemia Acute cystitis KERI due to vasomotor nephropathy Normocytic anemia Hypothyroidism Gastroparesis CAD Diastolic CHF Severe malnutrition Morbid obesity Plan: Continue treatment of bilateral lower extremity cellulitis with cefazolin 1 g every 8 Left lower extremity actively weeping clear yellow fluid. Wound cultures were obtained in the ED; will follow for cultures and sensitivity. Antibiotics should also cover for acute cystitis Consultation placed to lymphedema nurse. Discussed leg elevations and that she would likely benefit from regular leg wrappings. Basal/prandial insulin. Hemoglobin A1c pending. Monitor hemoglobin and kidney function. We will plan judicious fluids due to history of diastolic CHF Resume home medications FEN - ADA/Cardiac diet PPX - Heparin FULL CODE Dispo - inpatient for above Patient names her (Maged Diaz) as surrogate decision-maker History of Present Illness History of Present Illness Patient 60-year-old female with past medical history DM2, who presents to the ED at the behest of her new PCP for evaluation of bilateral leg cellulitis and UTI. She reports urinary frequency and incontinence over the past several months. She has chronic lymphedema to bilateral lower extremities and has been managing this at home with regular wrappings. Previously they were having wound care come to the house, but they have not been coming for the past several months. Patient has not been out of the house since April, per her . She was at her first appointment with her new PCP Dr. Cristina, when she was sent to the ED for further evaluation of lower extremity cellulitis and concerns for urosepsis. Previously she has been treated for left lower extremity cellulitis, but has not had antibiotics in over 2 months. Recently she began to develop right lower extremity erythema as well. Labs on admission showed WBC 11.3, hemoglobin 8.0, hematocrit 25.9, sodium 130, BUN 36, creatinine 1.5, troponin 0.029, CBG 430, lactic acid 2.0. No concerns for sepsis in the ED, but due to extensive erythema she received Rocephin 1 g. Will admit patient for further medical management. 08/04: Afebrile, breathing 4 L nasal cannula. Denies any pain in her lower extremities. Hemoglobin A1c 11.0, CBGs in the mid 200s. Hemoglobin 6.5 today; will provide 1 unit PRBC. Will also initiate oral ferrous sulfate for maintenance. Initial Gram stain showed gram-negative rods and gram-positive cocci. Will change antibiotic to Zosyn. 08/05: Afebrile, breathing room air. Wound cultures growing Serratia and beta strep group G, resistant to amoxicillin, Augmentin, and Unasyn. Discussed with pharmacy, due to some concerns for Zosyn resistance, will change to cefepime. Once stable she would need to discharge on ciprofloxacin, per sensitivities. Rocephin will also cover for UTI. Somewhat bradycardic and hypotensive this morning. Will continue to monitor and vital signs and consider decreasing dose of Coreg. Hemoglobin 7.1 this morning; continue oral ferrous sulfate. Vitals/I&O Vitals/I&O: Vital Signs Date Time Temp Pulse Resp B/P (MAP) Pulse Ox O2 Delivery O2 Flow Rate FiO2 08/05/21 11:00 97.8 63 18 121/55 (77) 91 Room Air 97.8 08/05/21 08:00 4.0 I & O 08/04/21 08/04/21 08/05/21 15:00 23:00 07:00 Intake Total 1055 ml 250 ml Output Total 300 ml Balance 1055 ml -50 ml Physical Exam General: Alert, Cooperative, No acute distress Heart: Regular rate Lungs: Clear, Crackles Abdomen: Soft, No tenderness Extremities: No clubbing, No cyanosis Skin: Other (Bilateral lower extremities wrapped and bandaged with dressings clean/dry/intact) Labs Labs: Laboratory Tests Test 08/04/21 16:52 08/04/21 19:03 08/05/21 06:40 08/05/21 07:47 Glucose (Fingerstick) 148 mg/dL (70-99) 214 mg/dL (70-99) 190 mg/dL (70-99) White Blood Count 8.2 x10^3/uL (4.0-11.0) Red Blood Count 3.29 x10^6/uL (3.50-5.40) Hemoglobin 7.1 g/dL (12.0-15.5) Hematocrit 23.3 % (36.0-47.0) Mean Corpuscular Volume 71 fL (79-100) Mean Corpuscular Hemoglobin 22 pg (25-35) Mean Corpuscular Hemoglobin Concent 31 g/dL (31-37) Red Cell Distribution Width 21.3 % (11.5-14.5) Platelet Count 367 x10^3/uL (140-400) Neutrophils (%) (Auto) 65 % (31-73) Lymphocytes (%) (Auto) 23 % (24-48) Monocytes (%) (Auto) 9 % (0-9) Eosinophils (%) (Auto) 3 % (0-3) Basophils (%) (Auto) 1 % (0-3) Neutrophils # (Auto) 5.3 x10^3/uL (1.8-7.7) Lymphocytes # (Auto) 1.8 x10^3/uL (1.0-4.8) Monocytes # (Auto) 0.7 x10^3/uL (0.0-1.1) Eosinophils # (Auto) 0.2 x10^3/uL (0.0-0.7) Basophils # (Auto) 0.1 x10^3/uL (0.0-0.2) Sodium Level 135 mmol/L (136-145) Potassium Level 5.1 mmol/L (3.5-5.1) Chloride Level 101 mmol/L (98-107) Carbon Dioxide Level 25 mmol/L (21-32) Anion Gap 9 (6-14) Blood Urea Nitrogen 41 mg/dL (7-20) Creatinine 2.0 mg/dL (0.6-1.0) Estimated GFR (Cockcroft-Gault) 25.3 Glucose Level 218 mg/dL (70-99) Calcium Level 8.5 mg/dL (8.5-10.1) Test 08/05/21 11:43 Glucose (Fingerstick) 223 mg/dL (70-99) Assessment and Plan Assessmemt and Plan Problems Medical Problems: (1) Cellulitis Status: Acute (2) Diabetic foot ulcer Status: Acute (3) UTI (urinary tract infection) Status: Acute Comment Review of Relevant I have reviewed the following items alexa (where applicable) has been applied. Medications: Current Medications Medications (Trade) Dose Ordered Sig/Felisa Route PRN Reason Start Time Stop Time Status Last Admin Dose Admin Ferrous Sulfate (Feosol) 325 mg [id number] PO 08/05/21 08:00 08/05/21 09:11 Lactobacillus Rhamnosus (Culturelle) 1 cap BID PO 08/04/21 21:00 08/05/21 09:11 Nystatin (Nystop) 1 musa BID TP 08/05/21 09:00 08/05/21 09:12 Justifications for Admission General Conditions Other justification for admit: Bilateral lower extremity cellulitis, UTI, DM2 with hyperglycemia Other Justification MELBA LEON MD Aug 05, 2021 15:07
[2021-08-05] MEDS ORDERED: cefTRIAXone IV Push 1 GM VIAL. IVP SCH (15:15)
[2021-08-05] MEDS: CEFEPIME HCL IV Push 2 GM VIAL. IVP SCH ×2 (15:29→21:30)
[2021-08-05] MEDS ORDERED: NITROGLYCERIN SUBLINGUAL 0.4 MG BOTTLE OF 25. SL PRN (19:00)
[2021-08-05] MEDS ORDERED: BENZONATATE 100 MG CAPSULE. PO PRN (19:00)
[2021-08-05 19:30] VITALS: BP 125/50
[2021-08-05] MEDS: ZOLPIDEM 5 MG TABLET. PO PRN (19:40)
[2021-08-05] MEDS: SIMVASTATIN 40 MG TABLET. PO SCH (19:40)
[2021-08-05] MEDS: ONDANSETRON PF 4 MG/2 ML VIAL. IVP PRN (19:42)
[2021-08-05] MEDS: INSULIN GLARGINE SYRINGE. SQ SCH (20:05)
[2021-08-05 23:06] VITALS: BP 119/55
[2021-08-06 03:00] VITALS: BP 126/60
[2021-08-06] MEDS: CEFEPIME HCL IV Push 2 GM VIAL. IVP SCH ×3 (05:00→22:34)
[2021-08-06] MEDS: HEPARIN for SUB-Q USE 5,000 UNIT/ML VIAL. SQ SCH ×3 (06:25→22:44)
[2021-08-06 07:00] VITALS: BP 129/73
[2021-08-06 07:12] LABS: BASO # 0.2 x10^3/uL (0.0-0.2); BASO % 2 % (0-3); EOS # 0.2 x10^3/uL (0.0-0.7); EOS % 3 % (0-3); HEMATOCRIT 24.6 % (36.0-47.0); HEMOGLOBIN 7.5 g/dL (12.0-15.5); LYMPH # 1.3 x10^3/uL (1.0-4.8); LYMPH % 15 % (24-48); MEAN CORPUSCULAR HEMOGLOBIN 23 pg (25-35); MEAN CORPUSCULAR HGB CONC 31 g/dL (31-37); MEAN CORPUSCULAR VOLUME 73 fL (79-100); MONO # 0.7 x10^3/uL (0.0-1.1); MONO % 9 % (0-9); NEUT % 71 % (31-73); PLATELET COUNT 410 x10^3/uL (140-400); RED BLOOD COUNT 3.36 x10^6/uL (3.50-5.40); RED CELL DISTRIBUTION WIDTH 21.4 % (11.5-14.5); WHITE BLOOD COUNT 8.5 x10^3/uL (4.0-11.0)
[2021-08-06 07:24] LABS: CALCIUM 8.5 mg/dL (8.5-10.1); CREATININE 2.1 mg/dL (0.6-1.0); GFR 23.9; POTASSIUM 5.4 mmol/L (3.5-5.1)
[2021-08-06] MEDS: glipiZIDE ER 2.5 MG TAB.ER.24 PO SCH (08:56)
[2021-08-06] MEDS: hydroCHLOROthiazide 12.5 MG CAPSULE PO SCH (08:56)
[2021-08-06] MEDS: FUROSEMIDE 40 MG TABLET. PO SCH (08:56)
[2021-08-06] MEDS: LOSARTAN POTASSIUM 50 MG TABLET. PO SCH (08:57)
[2021-08-06] MEDS: CLOPIDOGREL BISULFATE 75 MG TABLET PO SCH (08:57)
[2021-08-06] MEDS: LACTOBACILLUS RHAMNOSUS GG 1 CAPSULE. PO SCH ×2 (08:57→20:44)
[2021-08-06] MEDS: FERROUS SULFATE 325 MG TABLET. PO SCH (08:58)
[2021-08-06] MEDS: PANTOPRAZOLE 40 MG TABLET.DR. PO SCH ×2 (08:58→16:57)
[2021-08-06] MEDS: ISOSORBIDE MONONITRATE ER 30 MG TAB.ER.24H PO SCH (08:58)
[2021-08-06] MEDS: LEVOTHYROXINE 100 MCG TABLET PO SCH (08:59)
[2021-08-06] MEDS: METOCLOPRAMIDE 5 MG TABLET. PO SCH ×2 (08:59→16:59)
[2021-08-06] MEDS: CARVEDILOL 12.5 MG TABLET. PO SCH ×2 (08:59→16:59)
[2021-08-06] MEDS: NYSTATIN TOPICAL POWDER 15GM BOTTLE. TP SCH ×2 (09:00→21:25)
[2021-08-06] MEDS: POTASSIUM CHLORIDE 20 MEQ TABLET.ER. PO SCH (09:00)
[2021-08-06] MEDS: CYANOCOBALAMIN (VITAMIN B-12) 1,000 MCG TABLET. PO SCH (09:00)
[2021-08-06] MEDS: INSULIN LISPRO 300 UNITS/3 ML VIAL. SQ SCH ×3 (09:09→17:03)
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
[2021-08-06] MEDS ORDERED: IV NORMAL SALINE 1000ML BAG 1,000 ML IV ONE (10:15)
[2021-08-06 11:00] VITALS: BP 115/52
[2021-08-06 15:00] VITALS: BP 121/79
[2021-08-06 19:00] VITALS: BP 101/49
[2021-08-06] MEDS: SIMVASTATIN 40 MG TABLET. PO SCH (20:44)
[2021-08-06] MEDS: INSULIN GLARGINE SYRINGE. SQ SCH (20:48)
[2021-08-06] MEDS: ZOLPIDEM 5 MG TABLET. PO PRN (22:34)
[2021-08-06] MEDS: HYDROcodone/APAP 5/325MG 1 TAB TABLET PO PRN (22:35)
[2021-08-06 23:00] VITALS: BP 124/74
[2021-08-07 03:00] VITALS: BP 120/52
[2021-08-07] MEDS: CEFEPIME HCL IV Push 2 GM VIAL. IVP SCH ×3 (06:14→22:25)
[2021-08-07] MEDS: HEPARIN for SUB-Q USE 5,000 UNIT/ML VIAL. SQ SCH ×3 (06:20→22:26)
[2021-08-07] MEDS: PANTOPRAZOLE 40 MG TABLET.DR. PO SCH ×2 (06:40→17:15)
[2021-08-07] MEDS: LEVOTHYROXINE 100 MCG TABLET PO SCH (06:40)
[2021-08-07] MEDS: METOCLOPRAMIDE 5 MG TABLET. PO SCH ×2 (06:40→17:15)
[2021-08-07 07:00] VITALS: BP 117/57
[2021-08-07] MEDS: POTASSIUM CHLORIDE 20 MEQ TABLET.ER. PO SCH (07:10)
[2021-08-07 07:55] LABS: BASO # 0.1 x10^3/uL (0.0-0.2); BASO % 1 % (0-3); EOS # 0.3 x10^3/uL (0.0-0.7); EOS % 4 % (0-3); HEMATOCRIT 25.3 % (36.0-47.0); HEMOGLOBIN 7.7 g/dL (12.0-15.5); LYMPH # 1.1 x10^3/uL (1.0-4.8); LYMPH % 14 % (24-48); MEAN CORPUSCULAR HEMOGLOBIN 22 pg (25-35); MEAN CORPUSCULAR HGB CONC 31 g/dL (31-37); MEAN CORPUSCULAR VOLUME 72 fL (79-100); MONO # 0.6 x10^3/uL (0.0-1.1); MONO % 7 % (0-9); NEUT % 74 % (31-73); PLATELET COUNT 403 x10^3/uL (140-400); RED BLOOD COUNT 3.52 x10^6/uL (3.50-5.40); RED CELL DISTRIBUTION WIDTH 21.3 % (11.5-14.5); WHITE BLOOD COUNT 8.1 x10^3/uL (4.0-11.0)
[2021-08-07 08:28] LABS: CALCIUM 8.6 mg/dL (8.5-10.1); CREATININE 1.9 mg/dL (0.6-1.0); GFR 26.9; POTASSIUM 5.1 mmol/L (3.5-5.1)
[2021-08-07] MEDS: ISOSORBIDE MONONITRATE ER 30 MG TAB.ER.24H PO SCH (08:43)
[2021-08-07] MEDS: CLOPIDOGREL BISULFATE 75 MG TABLET PO SCH (08:43)
[2021-08-07] MEDS: LACTOBACILLUS RHAMNOSUS GG 1 CAPSULE. PO SCH ×2 (08:44→22:11)
[2021-08-07] MEDS: FERROUS SULFATE 325 MG TABLET. PO SCH (08:44)
[2021-08-07] MEDS: CARVEDILOL 12.5 MG TABLET. PO SCH ×2 (08:44→17:15)
[2021-08-07] MEDS: LOSARTAN POTASSIUM 50 MG TABLET. PO SCH (08:44)
[2021-08-07] MEDS: glipiZIDE ER 2.5 MG TAB.ER.24 PO SCH (08:45)
[2021-08-07] MEDS: FUROSEMIDE 40 MG TABLET. PO SCH (08:45)
[2021-08-07] MEDS: INSULIN LISPRO 300 UNITS/3 ML VIAL. SQ SCH ×3 (08:51→16:58)
[2021-08-07] MEDS: CYANOCOBALAMIN (VITAMIN B-12) 1,000 MCG TABLET. PO SCH (09:00)
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
[2021-08-07 11:00] VITALS: BP 107/49
[2021-08-07] MEDS: ONDANSETRON PF 4 MG/2 ML VIAL. IVP PRN (11:15)
[2021-08-07] MEDS ORDERED: PSEUDOEPHEDRINE 30 MG TABLET. PO PRN (11:30)
[2021-08-07] MEDS ORDERED: IV 1/2 NORMAL SALINE 1,000 ML IV ONE (11:30)
[2021-08-07] MEDS: FLUTICASONE 50MCG/NASAL SPRAY 16GM BOTTLE. NS SCH (12:42)
[2021-08-07] MEDS: NYSTATIN TOPICAL POWDER 15GM BOTTLE. TP SCH ×2 (12:43→23:38)
[2021-08-07] MEDS: traMADol 50 MG TABLET PO PRN (12:55)
[2021-08-07 15:00] VITALS: BP 107/51
[2021-08-07] MEDS: MECLIZINE HCL 12.5 MG TABLET. PO SCH ×2 (17:15→22:11)
[2021-08-07 19:00] VITALS: BP 113/58
[2021-08-07] MEDS: INSULIN GLARGINE SYRINGE. SQ SCH (22:05)
[2021-08-07] MEDS: SIMVASTATIN 40 MG TABLET. PO SCH (22:11)
[2021-08-07 23:00] VITALS: BP 118/55
[2021-08-08 03:00] VITALS: BP 124/59
[2021-08-08] MEDS: CEFEPIME HCL IV Push 2 GM VIAL. IVP SCH ×2 (06:37→14:17)
[2021-08-08] MEDS: LEVOTHYROXINE 100 MCG TABLET PO SCH (06:37)
[2021-08-08] MEDS: METOCLOPRAMIDE 5 MG TABLET. PO SCH ×2 (06:37→17:36)
[2021-08-08] MEDS: PANTOPRAZOLE 40 MG TABLET.DR. PO SCH ×2 (06:37→17:36)
[2021-08-08] MEDS: HEPARIN for SUB-Q USE 5,000 UNIT/ML VIAL. SQ SCH ×3 (06:44→21:33)
[2021-08-08 07:00] VITALS: BP 121/51
[2021-08-08 07:49] LABS: BASO # 0.1 x10^3/uL (0.0-0.2); BASO % 2 % (0-3); EOS # 0.2 x10^3/uL (0.0-0.7); EOS % 3 % (0-3); HEMATOCRIT 24.9 % (36.0-47.0); HEMOGLOBIN 7.5 g/dL (12.0-15.5); LYMPH # 1.5 x10^3/uL (1.0-4.8); LYMPH % 19 % (24-48); MEAN CORPUSCULAR HEMOGLOBIN 22 pg (25-35); MEAN CORPUSCULAR HGB CONC 30 g/dL (31-37); MEAN CORPUSCULAR VOLUME 72 fL (79-100); MONO # 0.7 x10^3/uL (0.0-1.1); MONO % 8 % (0-9); NEUT # 5.5 x10^3/uL (1.8-7.7); NEUT % 68 % (31-73); PLATELET COUNT 372 x10^3/uL (140-400); RED BLOOD COUNT 3.45 x10^6/uL (3.50-5.40); RED CELL DISTRIBUTION WIDTH 21.7 % (11.5-14.5)
[2021-08-08] MEDS: CARVEDILOL 12.5 MG TABLET. PO SCH ×2 (08:00→17:38)
[2021-08-08 08:13] LABS: CALCIUM 8.8 mg/dL (8.5-10.1); CREATININE 1.9 mg/dL (0.6-1.0); GFR 26.9; POTASSIUM 5.5 mmol/L (3.5-5.1)
[2021-08-08] MEDS: NYSTATIN TOPICAL POWDER 15GM BOTTLE. TP SCH ×2 (09:00→12:27)
[2021-08-08] MEDS: CYANOCOBALAMIN (VITAMIN B-12) 1,000 MCG TABLET. PO SCH (09:32)
[2021-08-08] MEDS: glipiZIDE ER 2.5 MG TAB.ER.24 PO SCH (09:32)
[2021-08-08] MEDS: FERROUS SULFATE 325 MG TABLET. PO SCH (09:33)
[2021-08-08] MEDS: CLOPIDOGREL BISULFATE 75 MG TABLET PO SCH (09:33)
[2021-08-08] MEDS: LACTOBACILLUS RHAMNOSUS GG 1 CAPSULE. PO SCH ×2 (09:33→21:30)
[2021-08-08] MEDS: FUROSEMIDE 40 MG TABLET. PO SCH (09:34)
[2021-08-08] MEDS: MECLIZINE HCL 12.5 MG TABLET. PO SCH ×2 (09:34→21:30)
[2021-08-08] MEDS: INSULIN LISPRO 300 UNITS/3 ML VIAL. SQ SCH ×3 (09:48→17:42)
[2021-08-08 11:00] VITALS: BP 135/62
[2021-08-08] MEDS: FLUTICASONE 50MCG/NASAL SPRAY 16GM BOTTLE. NS SCH (12:27)
[2021-08-08] MEDS: ISOSORBIDE MONONITRATE ER 30 MG TAB.ER.24H PO SCH (12:28)
[2021-08-08] MEDS: LOSARTAN POTASSIUM 50 MG TABLET. PO SCH (12:29)
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
[2021-08-08 15:00] VITALS: BP 132/59
[2021-08-08 19:00] VITALS: BP 129/54
[2021-08-08] MEDS: SIMVASTATIN 40 MG TABLET. PO SCH (21:30)
[2021-08-08] MEDS: INSULIN GLARGINE SYRINGE. SQ SCH (21:33)
[2021-08-08] MEDS: ZOLPIDEM 5 MG TABLET. PO PRN (21:37)
[2021-08-08 23:00] VITALS: BP 128/52
[2021-08-09 03:00] VITALS: BP 132/52
[2021-08-09] MEDS: LEVOTHYROXINE 100 MCG TABLET PO SCH (05:46)
[2021-08-09] MEDS: HYDROcodone/APAP 5/325MG 1 TAB TABLET PO PRN ×2 (05:46→23:15)
[2021-08-09] MEDS: HEPARIN for SUB-Q USE 5,000 UNIT/ML VIAL. SQ SCH ×3 (05:51→21:42)
[2021-08-09 07:37] VITALS: BP 127/57
[2021-08-09] MEDS: CARVEDILOL 12.5 MG TABLET. PO SCH ×2 (08:00→17:00)
[2021-08-09] MEDS: FLUTICASONE 50MCG/NASAL SPRAY 16GM BOTTLE. NS SCH (08:13)
[2021-08-09] MEDS: FERROUS SULFATE 325 MG TABLET. PO SCH (08:14)
[2021-08-09] MEDS: PANTOPRAZOLE 40 MG TABLET.DR. PO SCH ×2 (08:14→17:11)
[2021-08-09] MEDS: LACTOBACILLUS RHAMNOSUS GG 1 CAPSULE. PO SCH ×2 (08:14→21:35)
[2021-08-09] MEDS: CLOPIDOGREL BISULFATE 75 MG TABLET PO SCH (08:14)
[2021-08-09] MEDS: MECLIZINE HCL 12.5 MG TABLET. PO SCH ×2 (08:15→21:35)
[2021-08-09] MEDS: METOCLOPRAMIDE 5 MG TABLET. PO SCH ×2 (08:15→17:11)
[2021-08-09] MEDS: CYANOCOBALAMIN (VITAMIN B-12) 1,000 MCG TABLET. PO SCH (08:15)
[2021-08-09] MEDS: glipiZIDE ER 2.5 MG TAB.ER.24 PO SCH (08:16)
[2021-08-09] MEDS: CEFEPIME HCL IV Push 2 GM VIAL. IVP SCH ×2 (08:19→21:35)
[2021-08-09] MEDS: INSULIN LISPRO 300 UNITS/3 ML VIAL. SQ SCH ×3 (08:32→17:16)
[2021-08-09] MEDS: NYSTATIN TOPICAL POWDER 15GM BOTTLE. TP SCH ×2 (09:00→21:00)
--- NOTE | 2021-08-09 10:38 | NUR ---
SW following. Discussed with RN, pt from home with spouse, 4L (uses oxygen at home), ada diet. Pt is wheelchair bound. Pt declining therapy during this admission Pt currently on IV abx and has wound care need. SW will continue to follow.
[2021-08-09 11:31] VITALS: BP 129/63
[2021-08-09 11:31] LABS: BASO # 0.2 x10^3/uL (0.0-0.2); BASO % 2 % (0-3); EOS # 0.3 x10^3/uL (0.0-0.7); EOS % 3 % (0-3); HEMATOCRIT 26.1 % (36.0-47.0); HEMOGLOBIN 7.9 g/dL (12.0-15.5); LYMPH # 1.8 x10^3/uL (1.0-4.8); LYMPH % 22 % (24-48); MEAN CORPUSCULAR HEMOGLOBIN 22 pg (25-35); MEAN CORPUSCULAR HGB CONC 30 g/dL (31-37); MEAN CORPUSCULAR VOLUME 72 fL (79-100); MONO # 0.7 x10^3/uL (0.0-1.1); MONO % 9 % (0-9); NEUT # 5.1 x10^3/uL (1.8-7.7); NEUT % 63 % (31-73); PLATELET COUNT 365 x10^3/uL (140-400); RED BLOOD COUNT 3.62 x10^6/uL (3.50-5.40); RED CELL DISTRIBUTION WIDTH 21.8 % (11.5-14.5)
[2021-08-09 11:51] LABS: ALBUMIN 1.9 g/dL (3.4-5.0); ALBUMIN/GLOBULIN RATIO 0.4 (1.0-1.7); CALCIUM 8.7 mg/dL (8.5-10.1); CREATININE 1.9 mg/dL (0.6-1.0); GFR 26.9; POTASSIUM 4.4 mmol/L (3.5-5.1); TOTAL BILIRUBIN 0.5 mg/dL (0.2-1.0)
[2021-08-09] MEDS: LOSARTAN POTASSIUM 50 MG TABLET. PO SCH (12:26)
[2021-08-09 15:00] VITALS: BP 170/53
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
[2021-08-09] MEDS: FUROSEMIDE 40 MG TABLET. PO SCH (16:35)
[2021-08-09] MEDS: ISOSORBIDE MONONITRATE ER 30 MG TAB.ER.24H PO SCH (16:35)
[2021-08-09 19:05] VITALS: BP 120/54
[2021-08-09] MEDS: SIMVASTATIN 40 MG TABLET. PO SCH (21:35)
[2021-08-09] MEDS: INSULIN GLARGINE SYRINGE. SQ SCH (21:43)
[2021-08-09] MEDS: ZOLPIDEM 5 MG TABLET. PO PRN (22:03)
[2021-08-09 23:10] VITALS: BP 120/50
[2021-08-10 03:09] VITALS: BP 123/53
[2021-08-10] MEDS: HYDROcodone/APAP 5/325MG 1 TAB TABLET PO PRN ×2 (03:30→09:26)
[2021-08-10] MEDS: HEPARIN for SUB-Q USE 5,000 UNIT/ML VIAL. SQ SCH (05:56)
[2021-08-10 07:00] VITALS: BP 132/54
[2021-08-10] MEDS: CYANOCOBALAMIN (VITAMIN B-12) 1,000 MCG TABLET. PO SCH (09:00)
[2021-08-10] MEDS: glipiZIDE ER 2.5 MG TAB.ER.24 PO SCH (09:15)
[2021-08-10] MEDS: CARVEDILOL 12.5 MG TABLET. PO SCH (09:15)
[2021-08-10] MEDS: MECLIZINE HCL 12.5 MG TABLET. PO SCH (09:16)
[2021-08-10] MEDS: CLOPIDOGREL BISULFATE 75 MG TABLET PO SCH (09:16)
[2021-08-10] MEDS: METOCLOPRAMIDE 5 MG TABLET. PO SCH (09:16)
[2021-08-10] MEDS: ISOSORBIDE MONONITRATE ER 30 MG TAB.ER.24H PO SCH (09:16)
[2021-08-10] MEDS: PANTOPRAZOLE 40 MG TABLET.DR. PO SCH (09:16)
[2021-08-10] MEDS: LEVOTHYROXINE 100 MCG TABLET PO SCH (09:16)
[2021-08-10] MEDS: FUROSEMIDE 40 MG TABLET. PO SCH (09:17)
[2021-08-10] MEDS: LACTOBACILLUS RHAMNOSUS GG 1 CAPSULE. PO SCH (09:18)
[2021-08-10] MEDS: NYSTATIN TOPICAL POWDER 15GM BOTTLE. TP SCH (09:18)
[2021-08-10] MEDS: LOSARTAN POTASSIUM 50 MG TABLET. PO SCH (09:18)
[2021-08-10] MEDS: FLUTICASONE 50MCG/NASAL SPRAY 16GM BOTTLE. NS SCH (09:18)
[2021-08-10] MEDS: FERROUS SULFATE 325 MG TABLET. PO SCH (09:18)
[2021-08-10] MEDS: INSULIN LISPRO 300 UNITS/3 ML VIAL. SQ SCH (09:27)
[2021-08-10] MEDS ORDERED: LEVO750T5 PO ×2 (09:30→11:52)
[2021-08-10] MEDS ORDERED: FLUT16SP NS ×2 (09:30→11:52)
[2021-08-10] MEDS ORDERED: FERR325T72 PO ×2 (09:30→11:52)
[2021-08-10] MEDS ORDERED: HYDR-2761 PO (09:30)
[2021-08-10] MEDS ORDERED: MECL12.582 PO ×2 (09:30→11:52)
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
--- NOTE | 2021-08-10 10:38 | NUR ---
SW following. Discussed with RN, discharge order for home with self care. RN advised no SW needs at this time.
--- NOTE | 2021-08-10 11:09 | NUR ---
Pt discharged home. She transferred from chair to w/c without the use of mechanical lift. She told this typewriters functional tester that her has a way to get her in and out of the car. She left floor at 1105 by w/c. IV was pulled, belongings were sent with .
[2021-08-10 19:26] VITALS: BP 107/55
== END 2021-08-10 11:00 | disposition home or self-care (01) | DRG 602 ==
LOC: ER 12:17 → 4 NORTH 15:42
PROVIDERS: ADMIT Family Medicine; ATTEND Family Medicine
PROC: 30233N1 Transfusion of Nonautologous Red Blood Cells into Peripheral Vein, Percutaneous Approach (ICD-10-PCS; principal; 2021-08-05)
DX: L03.115 Cellulitis of right lower limb (principal); E43 Unspecified severe protein-calorie malnutrition; N17.0 Acute kidney failure with tubular necrosis; I50.30 Unspecified diastolic (congestive) heart failure; N30.00 Acute cystitis without hematuria; Z68.42 Body mass index [BMI] 45.0-49.9, adult; L03.116 Cellulitis of left lower limb; E11.621 Type 2 diabetes mellitus with foot ulcer; B96.1 Klebsiella pneumoniae [K. pneumoniae] as the cause of diseases classified elsewhere; D64.9 Anemia, unspecified; E03.9 Hypothyroidism, unspecified; E11.43 Type 2 diabetes mellitus with diabetic autonomic (poly)neuropathy; E11.65 Type 2 diabetes mellitus with hyperglycemia; E66.01 Morbid (severe) obesity due to excess calories; E78.00 Pure hypercholesterolemia, unspecified; E78.5 Hyperlipidemia, unspecified; E87.5 Hyperkalemia; I11.0 Hypertensive heart disease with heart failure; I25.10 Atherosclerotic heart disease of native coronary artery without angina pectoris; I89.0 Lymphedema, not elsewhere classified; J44.9 Chronic obstructive pulmonary disease, unspecified; K31.84 Gastroparesis; L97.509 Non-pressure chronic ulcer of other part of unspecified foot with unspecified severity; M17.11 Unilateral primary osteoarthritis, right knee; Z82.49 Family history of ischemic heart disease and other diseases of the circulatory system; Z91.81 History of falling; Z96.652 Presence of left artificial knee joint; K21.9 Gastro-esophageal reflux disease without esophagitis; E87.6 Hypokalemia
CPT/HCPCS: 36415; 36430; 80048; 80053; 81001; 82962; 83036; 83605; 83735; 84484; 85025; 86850; 86900; 86901; 86920; 87040; 87071; 87075; 87077; 87086; 87186; 93005; 96365; 96375; J0690; J0692; J0696; J1644; J1815; J2405; J2543; J3370; J3490; J7030; J7040; P9016; 73590-50; 99285-25; G0378; J8597